=== PATIENT | male | born 1960 | race Caucasian/White ===

== ENCOUNTER → 2020-07-30 14:36 | Outpatient (BNVA) | payer SELFPAY | PROVIDERS: PCP Internal Medicine; Visit Provider Internal Medicine ==

== ENCOUNTER 2022-06-29 07:13 | Day surgery (SDC) | payer BC, SELFPAY ==
--- NOTE | 2022-06-26 11:20 | P.CONAN_ITS ---
Documented by User: Muriel Arreaga NP 06/26/22 11:20 HPI - Anesthesia Eval Consult details Narrative: 61yo M for Colonoscopy [facility] Past Medical History Medical History GERD (gastroesophageal reflux disease) Lyme disease Surgical History Surgical History H/O esophagogastroduodenoscopy H/O shoulder surgery H/O surgical procedure History of liver biopsy History of removal of ureteral stent Social History Social History Patient Tobacco Use Status: Never used Tobacco Second Hand Smoke Exposure: No Use of substances other than those prescribed or required for medical reasons: No Are you DNR?: No Advance Directives: No Advance Directives Information Provided: Yes Advance Directives on File: No Meds Allergies Allergy/AdvReac Type Severity Reaction Status Date / Time ciprofloxacin Allergy Unknown left hand Verified 09/12/13 00:00 numbness meperidine [Demerol] Allergy Unknown nausea Verified 09/12/13 00:00 Home Medications Medication Instructions Recorded Confirmed Last Taken Type alfuzosin 10 mg tablet,extended 1 tab PO DAILY 06/26/22 06/26/22 Unknown History release 24 hr amitriptyline 10 mg tablet 1 tab PO BEDTIME 06/26/22 06/26/22 Unknown History anastrozole 1 mg tablet tab PO 06/26/22 Unknown History cefdinir 300 mg capsule 1 cap PO BID 06/26/22 06/26/22 Unknown History hydroxychloroquine 200 mg tablet 1 tab PO BID 06/26/22 06/26/22 Unknown History meloxicam 15 mg tablet 1 tab PO DAILY 06/26/22 06/26/22 Unknown History nystatin 500,000 unit tablet tab PO 06/26/22 Unknown History omega 2-biu-ixe-fish oil 1,000 mg cap PO 06/26/22 06/26/22 Unknown History (120 mg-180 mg) capsule (Fish Oil) omeprazole 20 mg tablet,delayed mg PO 06/26/22 Unknown History release testosterone cypionate 200 mg/mL mg IM 06/26/22 Unknown History intramuscular oil Exam Exam Date and Time: June 26, 2022 1120 Assessment and Plan Assessment Anesthesia Assessment: Chart Reviewed Documented by User: Josephine Joe MD 06/29/22 07:39 PMF Past Medical History Medical History GERD (gastroesophageal reflux disease) Lyme disease Surgical History Surgical History H/O esophagogastroduodenoscopy H/O shoulder surgery H/O surgical procedure History of liver biopsy History of removal of ureteral stent History of Problems with Anesthesia: No Social History Social History Patient Tobacco Use Status: Never used Tobacco Second Hand Smoke Exposure: No Use of substances other than those prescribed or required for medical reasons: No Are you DNR?: No Advance Directives: No Advance Directives Information Provided: Yes Advance Directives on File: No Meds Allergies Allergy/AdvReac Type Severity Reaction Status Date / Time ciprofloxacin Allergy Unknown left hand Verified 09/12/13 00:00 numbness meperidine [Demerol] Allergy Unknown nausea Verified 09/12/13 00:00 Home Medications Medication Instructions Recorded Confirmed Last Taken Type alfuzosin 10 mg tablet,extended 1 tab PO DAILY 06/26/22 06/26/22 Unknown History release 24 hr amitriptyline 10 mg tablet 1 tab PO BEDTIME 06/26/22 06/26/22 Unknown History anastrozole 1 mg tablet tab PO 06/26/22 Unknown History cefdinir 300 mg capsule 1 cap PO BID 06/26/22 06/26/22 Unknown History hydroxychloroquine 200 mg tablet 1 tab PO BID 06/26/22 06/26/22 Unknown History meloxicam 15 mg tablet 1 tab PO DAILY 06/26/22 06/26/22 Unknown History nystatin 500,000 unit tablet tab PO 06/26/22 Unknown History omega 2-ocy-stz-fish oil 1,000 mg cap PO 06/26/22 06/26/22 Unknown History (120 mg-180 mg) capsule (Fish Oil) omeprazole 20 mg tablet,delayed mg PO 06/26/22 Unknown History release testosterone cypionate 200 mg/mL mg IM 06/26/22 Unknown History intramuscular oil Exam Airway Mallampati Class: III TM Dist: >3cm Neck ROM: Full Loose/Missing/Broken Teeth: No Heart: RRR Lungs: CTA Assessment and Plan Assessment Anesthesia Assessment: Anesthesia Plan Discussed Final Anesthetic Review History of Problems with Anesthesia: No NPO: Yes ASA Class: II Final Preanesthetic Review: Meds/Allgs Chart Reviewed, Consent Obtained/Reviewed and Anes Risks/Benef Reviewed Patient Risk: Low Procedure Risk: Low Anesthetic Plan Anesthetic Plan: MAC: Disposition: Standard PACU
[2022-06-29 07:19] VITALS: BMI 30.4
[2022-06-29 07:32] VITALS: BP 125/87; PULSE 80; RESP 16; TEMP 36.1; O2SAT 97
[2022-06-29] MEDS: Lactated Ringers 1,000 ML 100 ML IVCONT (07:33)
[2022-06-29 08:18] VITALS: BP 114/69; PULSE 75; RESP 16; TEMP 36.1; O2SAT 96
--- NOTE | 2022-06-29 08:20 | P.BOP_ITS ---
Brief Operative Note Date of Service: 06/29/22 Pre-op diagnosis: Screening Post-op diagnosis: other (Rectal polyp) Procedure: Colonoscopy to the cecum and TI with bx/removal of polyp Surgeon: Anant Worthy Anesthesia: MAC Was an Advertising Sales Assistant used for this Procedure?: No Estimated blood loss (mL): 2.0 Pathology: other (A. Rectal polyp) Condition: stable Disposition: PACU
[2022-06-29 08:33] VITALS: BP 109/77; PULSE 76; RESP 16; O2SAT 100
[2022-06-29 08:48] VITALS: BP 126/86; PULSE 70; RESP 16; O2SAT 98
--- NOTE | 2022-06-29 20:24 | OP_ITS ---
SURGEON: Anant Worthy MD INDICATIONS: The patient presents for evaluation of colorectal cancer screening. Full consent has been obtained from him for this, including risks of bleeding and perforation. PREOPERATIVE DIAGNOSIS: Colorectal cancer screening. POSTOPERATIVE DIAGNOSIS: PROCEDURE PERFORMED: Colonoscopy to the cecum and terminal ileum with biopsy and removal of polyp. ESTIMATED BLOOD LOSS: COMPLICATIONS: ANESTHESIA: Monitored anesthesia care. ASSISTANTS: SPECIMENS: POSTOPERATIVE DIAGNOSES: Colorectal cancer screening, small colon polyp, mild diverticulosis, and internal hemorrhoids. DESCRIPTION OF PROCEDURE: The patient was placed in the left lateral decubitus position. The digital rectal exam revealed no abnormalities. The Olympus video pediatric colonoscope was entered into the rectum and advanced easily to the cecum. Once in the cecum, I did identify normal-appearing cecal pouch with appendiceal orifice and a normal-appearing ileocecal valve. The terminal ileum was cannulated and appeared normal. Scope was withdrawn back in the colon. The entire cecum and ileocecal valve appeared normal. The scope was slowly withdrawn assessing all mucosal surfaces carefully. Preparation was excellent. There was a mild amount of sigmoid diverticulosis. I did not visualize any sign of colitis nor angiodysplasia. The only polyp visualized was in the rectum. This was approximately 3 or 4 mm in diameter and was biopsied and completely removed with cold biopsy forceps. The scope was retroflexed visualizing internal hemorrhoids, but no other pathology. The scope was straightened and withdrawn from the patient. He tolerated the procedure well and was returned to the recovery area in stable condition. IMPRESSION: 1. Small rectal polyp. 2. Diverticulosis. 3. Internal hemorrhoids. PLAN: The results of the pathology will be checked. If this is a tubular adenoma, I would recommend a followup in 5 years. If it is only hyperplastic, I would recommend a followup colonoscopy in 10 years. He will otherwise see me on a p.r.n. basis. MD JEREMIAH Lafleur/MARGRET / [id number]
== END 2022-06-29 09:17 | disposition home or self-care (01) ==
PROVIDERS: PCP Pediatrics; Visit Provider Internal Medicine
PROC: 0DJD8ZZ Inspection of Lower Intestinal Tract, Via Natural or Artificial Opening Endoscopic (ICD-10-PCS; CPT 45378; principal; 2022-06-29 08:30)
DX: Z12.11 Encounter for screening for malignant neoplasm of colon (principal); K62.1 Rectal polyp; K57.30 Diverticulosis of large intestine without perforation or abscess without bleeding; K64.8 Other hemorrhoids; K21.9 Gastro-esophageal reflux disease without esophagitis; K76.0 Fatty (change of) liver, not elsewhere classified; Z79.899 Other long term (current) drug therapy
CPT/HCPCS: 45380; 88305

== ENCOUNTER → 2022-07-24 09:48 | Outpatient (BNVA) | payer SELFPAY | PROVIDERS: PCP Pediatrics; Visit Provider Internal Medicine | DX: Z02.79 Encounter for issue of other medical certificate (principal) ==

== ENCOUNTER → 2024-02-18 09:55 | Outpatient (BNVA) | payer SELFPAY | PROVIDERS: PCP Pediatrics; Visit Provider Internal Medicine | DX: Z02.79 Encounter for issue of other medical certificate (principal) ==

== ENCOUNTER 2025-05-14 11:17 | Day surgery (SDC) | payer BC, SELFPAY ==
[2025-05-10 13:59] VITALS: BMI 31.4
--- OUTSIDE RECORDS SUMMARY | 2025-05-10 14:38 | XMS_ITS | Clinical Summary ---
Author Organization [facility] Address [address] [place] [address] Care Team Providers Care Pattern Worker Name Role Phone Kavon Maldonado MD Primary Care Provider + [phone] Allergies Active Allergy Reactions Criticality Noted Date Comments Ciprofloxacin Other (See Comments) 12/12/2013 Meperidine Nausea And Vomiting, Nausea Only,Other (See Comments) Low 12/12/2013 Sulfa Antibiotics Nausea And Vomiting Low 8 Medications Medication Sig Dispensed Refills Start Date End Date Status alfuzosin (UROXATRAL) 10 MG 24 hr tablet alfuzosin ER 10 mg tablet,extended release 24 hr 0 Active amitriptyline (ELAVIL) 10 MG tablet Take 10 mg by mouth. 0 Acti ve anastrozole (ARIMIDEX) 1 MG tablet 0 07/29/2018 Active carisoprodol (SOMA) 350 MG tablet carisoprodol 350 mg tablet 0 Active cefdinir (OMNICEF) 300 MG capsule 0 09/01/2018 Active vitamin B-12 (CYANOCOBALAMIN) 500 MCG tablet Take 500 mcg by mouth. 0 Active hydroxychloroquine (PLAQUENIL) 200 MG tablet Take 200 mg by mouth. 0 Active meloxicam (MOBIC) 15 MG tablet Take 15 mg by mouth. 0 Ac tive omeprazole (PriLOSEC) 40 MG capsule 0 07/30/2018 Active tamsulosin (FLOMAX) 0.4 MG CAPS tamsulosin 0.4 mg capsule 0 Active testosterone cypionate (DEPO-TESTOSTERONE CYPIONATE) injection 200 mg/mL 0 09/27/2018 Active traMADol (ULTRAM) 50 MG tablet tramadol 50 mg tablet 0 Active HYDROcodone-acetam inophen (VICODIN ES) 7.5-300 MG per tablet Vicodin ES 7.5 mg-300 mg tablet 0 Active HYDROcodone-acetam inophen (VICODIN) 5-300 MG per tablet Take 1 to 2 tabs every 4 hours as needed for pain 50 tablet 0 08/22/2019 Active HYDROcodone-acetam inophen (NORCO) 5-325 MG per tablet 0 09/11/2019 Active BD INTEGRA SYRINGE 25G X 1 3 ML MISC 0 10/17/2019 Active fluconazole (DIFLUCAN) 100 MG tablet fluconazole 100 mg tablet 0 Active Active Problems Problem Noted Date Diagnosed Date Coracoid impingement of right shoulder Coracoid impingement of left shoulder 10/02/2020 Shoulder impingement, right 08/22/2019 Arthritis of right shoulder region 03/07/2019 Chronic right shoulder pain 03/07/2019 Social History Tobacco Use Types Packs/Day Years Used Date Smoking Tobacco: Never Assessed Sex and Gender Information Value Date Recorded Sex Assigned at Not on file Gender Identity Not on file Sexual Orientation Not on file Job Start Date Occupation Industry Not on file Not on file Not on file Last Filed Vital Signs Vital Sign Reading Time Taken Comments Blood Pressure - - Pulse - - Temperature - - Respiratory Rate - - Oxygen Saturation - - Inhaled Oxygen Concentration - - Weight 79.4 kg (175 lb) 05/09/2021 8:20 AM EDT Height 170.2 cm (5' 7 ) 05/09/2021 8:20 AM EDT Body Mass Index 27.41 05/09/2021 8:20 AM EDT Plan of Treatment Health Maintenance Due Date Last Done Comments Hepatitis C Screening 1960 COVID-19 Vaccine (#1) 01/14/1963 Depression Screening 1974 BMI Counseling 1980 Preventative Health Evaluation 1980 Colon Cancer Screening (Colonoscopy) 2007 DTap / Tdap / Td (2 - Td or Tdap) 04/18/2025 04/18/2015 Influenza Vaccine (#1) 2025 , 07/01/2018, 08/11/2017, Additional history exists RSV Adult > 60+ Yrs or (1 - 1-dose 75+ series) 2037 Shingrix-Zoster Vaccine Completed 06/23/2019, 03/30 Hepatitis B Vaccines Aged Out No long er eligible based on patient's age to complete this topic Pneumococcal Vaccine Aged Out No long er eligible based on patient's age to complete this topic RSV Ped < 20 months Aged Out No longe r eligible based on patient's age to complete this topic Care Teams Pattern Worker Relationship Specialty Start Date End Date Kavon Maldonado MD [address] [place] [id number] PCP - General Internal Medicine 07/07/18
--- OUTSIDE RECORDS SUMMARY | 2025-05-10 14:39 | XMS_ITS | Patient Health Record ---
Author Organization [facility] Address [address] [place] [address] Care Team Providers Care Flat Bed Operator Name Role Phone Erica MAJANO, Kavon Primary Care Provider Unavail able Anant Worthy Unavailable [phone] Allergies Allergen (clinical drug ingredient) Drug/Non Drug Allergy documented on EMR Reaction Allergy Type Onset Date Status Substance with sulfonamide structure and antibacterial mechanism of action (substance) Sulfa Antibiotics Unknown Drug Allergy Active meperidine Demerol Unknown Drug Allergy Active Reason For Referral Referring Provider First Name Kavon Referring Provider Last Name Erica Referring Provider Speciality Internal M edicine Referred Organization [facility] Referred Provider Anant Worthy Referred Address [address],[place], [place],[address] Referred Provider Specialty Gastroentero logy General Notes Sushma Steven 2024 01:32:45 PM >left message for pt to get an hmo blue referral from his pcp for his apptwith Dr. Worthy on 1960 [phone] [facility] 04/19/2025 09:05:17 AM >Spoke with Marlene at [facility] and requested an hmo blue referral for the patient's appt with Dr. Worthy on 05-14-25 Referral Priority Routine Referring Provider First Name Kavon Referring Provider Last Name Erica Referring Provider Speciality Internal M edicine Referred Organization [facility] Referred Provider Anant Worthy Referred Address [address],[place], [place],[address],[place] Referred Provider Specialty Gastroentero logy General Notes Sushma Steven 2024 09:30:10 AM >DR LEVINE'S OFFICE SENT REFERRA DATED 04-19-25 IT NEEDED TO BE DATED 04-18-25 PLEASE REQUEST ANOTHER REFERRAL FOR DOS 04-18-25 [phone] THE OTHER REFERRAL THEY SENT IS OKAY FOR THE UPCOMING PROCEDURE. Referral Priority Routine Medications Medication SIG (Take, Route, Frequency, Duration) Notes Start Date End Date Status Fish Oil 1000 MG 1 capsule Orally Once a day Active Plaquenil 200 MG 1 tablet with food or milk Orally Once or twice a day Lyme's disease Active Testosterone Cypionate 200 MG/ML 1 ml Intramuscular Ac tive Vitamin B12 1000 MCG 1 tablet Orally Once a day Active Cefdinir 300 MG Oral for 90 Ac tive Anastrozole 1 MG 1/4 tablet Orally twice a week For breast pain from testosterone Active Omeprazole 20 MG 1 capsule Orally Once a day 12/04/2011 Active Amitriptyline HCl 10 MG Oral for 90 Active Meloxicam 15 MG Oral for 90 Ac tive Probiotic Active Naltrexone Not-Takin g Multivitamin 1 1 tablet Orally once a day Active Alfuzosin HCl ER 10 MG Oral for 90 Active Nystatin 448775 UNIT/ML 4 ml Mouth/Throat two-three times a day Active Immunizations Vaccine Route Administration Date Status Comme nts Influenza Unknown 05/07/2021 Administered Social History AUDIT-C (Standard) Question Answer Notes Did you have a drink contain ing alcohol in the past year? Yes How often did you have a dri nk containing alcohol in the past year? 2 to 3 times a week (3 points) How many drinks did you have on a typical day when you were drinking in the past year? 1 or 2 drinks (0 point) How often did you have six o r more drinks on one occasion in the past year? 2 to 3 times per week (3 points) Points 6 Interpretation Positive Section Notes: Nonsmoker, occ. alcohol Nonsmoker, occ. alcohol Nonsmoker, occ. alcohol Nonsmoker, occ. alcohol Nonsmoker, occ. alcohol Nonsmoker, occ. alcohol Nonsmoker, occ. alcohol Problems Problem Type SNOMED Code ICD Code Onset Dates Problem Status W/U Status Risk Notes Problem Colon cancer screening (924753409) Colon cancer screening (Z12.11) Active confirmed Problem Dysphagia (81537560) Dysphagia (R13.10) Active confirmed Problem 868924636 Gastroesophageal reflux disease without esophagitis (K21.9) Active confirmed Problem Preprocedural examination (642712883068455) Preprocedural examination (Z01.818) Active confirmed Problem Barium swallow abnormal (585434140) Abnormal barium swallow (R93.3) Active confirmed Problem 200034831 Abdominal pain, generalized (R10.84) Active confirmed Problem Diverticulosis of colon (372920918) Diverticulosis of colon (K57.30) Active confirmed Vital Signs Heart Rate 88 /min 04/18/2025 Temperature 98.4 degrees Fahrenheit 04/18/2025 Blood pressure diastolic 01 mm Hg 04/18/2025 Height 66 in 04/18/2025 Blood pressure systolic 001 mm Hg 04/18/2025 Weight 194.8 lbs 04/18/2025 BMI 31.44 kg/m2 04/18/2025 Procedures Procedure Date Ordered Date Performed Result Body Sit e UPPER GI ENDOSCOPY BALLOOON DILATION OF ESOPH 04/18/2025 N/A Encounters Encounter Location Date Provider Diagnosis [facility] [address] [place] [phone] 04/18/2025 Anant Worthy Gastroesophageal ref lux disease without esophagitis K21.9 ; Dysphagia R13.10 ; Abnormal barium swallow R93.3 and Colon cancer screening Z12.11 [facility] [address] [place] [phone] 01/10/2025 Anant Worthy [facility] [address] [place] [phone] 04/18/2025 Anant Worthy Assessments Encounter Date Diagnosis (ICD Code) Assessment Notes Treatment Notes Treatment Clinical Notes Section Notes 04/18/2025 Dysphagia (ICD-10 - R13.10) Overall, Aparna appears well. His current upper GI symptoms do not seem overly worrisome for anything such as neoplasm. However, given his intermittent dysphagia and the abnormal barium swallow, I did advise him that he definitely needs an upper endoscopy for full assessment to rule out significant esophagitis, Julian's esophagus, esophageal stricture, and to definitively exclude any type of esophageal neoplasm albeit unlikely. I advised him that I would plan to perform balloon dilation of the distal esophagus and gastroesophageal junction at the time of the endoscopy. In the meantime I did advise him to continue his omeprazole. Full consent has been obtained for the endoscopy and dilation, including risks of bleeding and perforation. The procedure will be done with monitored anesthesia care. He was given the below instructions regarding adjustment of his medication for the procedure. We did review that he would be due for a follow-up colonoscopy for screening in 2031 given his negative exam in 2021 in regard to the finding of any adenomas. He does not show any signs nor describe any symptoms of progressive liver disease on his exam. His limited abdominal ultrasound in January does not describe any worrisome findings such as signs of' cirrhosis, liver mass, portal vein thrombosis, or biliary disease. I will obtain a copy of recent laboratories from your office that he reports that he had to check his LFTs at that time. Aparna was comfortable with this plan. Thank you again for allowing me to participate in Aparna's care. I shall continue to keep you advised of his progress. 04/18/2025 Gastroesophageal reflux disease without esophagitis (ICD-10 - K21.9) Overall, Aparna appears well. His current upper GI symptoms do not seem overly worrisome for anything such as neoplasm. However, given his intermittent dysphagia and the abnormal barium swallow, I did advise him that he definitely needs an upper endoscopy for full assessment to rule out significant esophagitis, Julian's esophagus, esophageal stricture, and to definitively exclude any type of esophageal neoplasm albeit unlikely. I advised him that I would plan to perform balloon dilation of the distal esophagus and gastroesophageal junction at the time of the endoscopy. In the meantime I did advise him to continue his omeprazole. Full consent has been obtained for the endoscopy and dilation, including risks of bleeding and perforation. The procedure will be done with monitored anesthesia care. He was given the below instructions regarding adjustment of his medication for the procedure. We did review that he would be due for a follow-up colonoscopy for screening in 2031 given his negative exam in 2021 in regard to the finding of any adenomas. He does not show any signs nor describe any symptoms of progressive liver disease on his exam. His limited abdominal ultrasound in January does not describe any worrisome findings such as signs of' cirrhosis, liver mass, portal vein thrombosis, or biliary disease. I will obtain a copy of recent laboratories from your office that he reports that he had to check his LFTs at that time. Aparna was comfortable with this plan. Thank you again for allowing me to participate in Aparna's care. I shall continue to keep you advised of his progress. 04/18/2025 Abnormal barium swallow (ICD-10 - R93.3) Overall, Aparna appears well. His current upper GI symptoms do not seem overly worrisome for anything such as neoplasm. However, given his intermittent dysphagia and the abnormal barium swallow, I did advise him that he definitely needs an upper endoscopy for full assessment to rule out significant esophagitis, Julian's esophagus, esophageal stricture, and to definitively exclude any type of esophageal neoplasm albeit unlikely. I advised him that I would plan to perform balloon dilation of the distal esophagus and gastroesophageal junction at the time of the endoscopy. In the meantime I did advise him to continue his omeprazole. Full consent has been obtained for the endoscopy and dilation, including risks of bleeding and perforation. The procedure will be done with monitored anesthesia care. He was given the below instructions regarding adjustment of his medication for the procedure. We did review that he would be due for a follow-up colonoscopy for screening in 2031 given his negative exam in 2021 in regard to the finding of any adenomas. He does not show any signs nor describe any symptoms of progressive liver disease on his exam. His limited abdominal ultrasound in January does not describe any worrisome findings such as signs of' cirrhosis, liver mass, portal vein thrombosis, or biliary disease. I will obtain a copy of recent laboratories from your office that he reports that he had to check his LFTs at that time. Aparna was comfortable with this plan. Thank you again for allowing me to participate in Aparna's care. I shall continue to keep you advised of his progress. 04/18/2025 Colon cancer screening (ICD-10 - Z12.11) Overall, Aparna appears well. His current upper GI symptoms do not seem overly worrisome for anything such as neoplasm. However, given his intermittent dysphagia and the abnormal barium swallow, I did advise him that he definitely needs an upper endoscopy for full assessment to rule out significant esophagitis, Julian's esophagus, esophageal stricture, and to definitively exclude any type of esophageal neoplasm albeit unlikely. I advised him that I would plan to perform balloon dilation of the distal esophagus and gastroesophageal junction at the time of the endoscopy. In the meantime I did advise him to continue his omeprazole. Full consent has been obtained for the endoscopy and dilation, including risks of bleeding and perforation. The procedure will be done with monitored anesthesia care. He was given the below instructions regarding adjustment of his medication for the procedure. We did review that he would be due for a follow-up colonoscopy for screening in 2031 given his negative exam in 2021 in regard to the finding of any adenomas. He does not show any signs nor describe any symptoms of progressive liver disease on his exam. His limited abdominal ultrasound in January does not describe any worrisome findings such as signs of' cirrhosis, liver mass, portal vein thrombosis, or biliary disease. I will obtain a copy of recent laboratories from your office that he reports that he had to check his LFTs at that time. Aparna was comfortable with this plan. Thank you again for allowing me to participate in Aparna's care. I shall continue to keep you advised of his progress. Plan Of Treatment Pending Test Test Name Order Date UPPER GI ENDOSCOPY BALLOOON DILATION OF ESOPH 04/18/2025 LIVER PROFILE 12/04/2011 Future Test Test Name Order Date UPPER GI ENDOSCOPY 01/12/2013 COLONOSCOPY 04/30/2022 Next Appt Details Provider Name:Anant Queen Deacon , 05/14/2025 01:40:00 PM, [address] [place] [address], [phone], Insurance Providers Payer Name Payer Address Payer Phone Subscriber Number Group Number Insured Name Patient Relationship to Insured Coverage Start Date Coverage End Date [facility] [employer] [address] [place] [address] [id number] APARNA ANDRADE Self - patient is the insured Medical (General) History Medical History History ICD Code EGD 12/23/2011-negative for a ny significant esophagitis, Julian's esophagus, nor hiatal hernia; EGD in 2012 was neg. as well- no H.pylori, no celiac disease Fatty liver-liver biopsy in 2003- mild inflammation and fibrosis- -neg. liver w/u otherwise GERD Denies IN,DM,CVA,Lung disease,renal dise ase Negative screening colonosco py in 07/2012 except for a hyperplastic polyp and mild diverticulosis Lyme disease- Stage III - s ees ID physician in [place]- Dr. Aparicio- on antibiotics--Plaquenil and Cefdinir as of the 04/30 OV Negative screening colonoscopy in 2021 e xcept for a hyperplastic polyp Hypertension Surgical History Surgery Date(Month/Year) Complete right shoulder rev erse replacement in September 2024--Dr. Castle at [facility] C-spine disc surgery 2022 Bilateral shoulder surgeries - 4 on the right, 1 on the left- might be having a right shoulder replacement Cystoscopies- ureteral stent s(removed)- negative w/u for bladder cancer Hemorrhoids Sinus Left elbow
--- OUTSIDE RECORDS SUMMARY | 2025-05-10 14:39 | XMS_ITS ---
Author Name [facility] Organization Unknown History of Medication Use Medication Directions Dispensed Refills Start Date End Date Stat triamcinolone acetonide 40 mg/mL suspension for injection Take 80 mg by injection route. 03/02/2024 active lidocaine (PF) 20 mg/mL (2 %) injection solution Take 2 mL by injection route. 08/05/2023 08/05/20 completed Marcaine (PF) 0.5 % (5 mg/mL) injection solution Take 2 mL by injection route. 04/20/2023 08/05/20 completed Kenalog 40 mg/mL suspension for injection Take 1 mL by injection route. 01/25/2023 08/05/20 active lidocaine (PF) 20 mg/mL (2 %) injection solution active lidocaine (PF) 100 mg/5 mL (2 %) injection syringe active alfuzosin ER 10 mg tablet,extended release 24 hr active amitriptyline 10 mg tablet active anastrozole 1 mg tablet active benzonatate 200 mg capsule TAKE 1 CAPSULE BY MOUTH THREE TIMES DAILY FOR 3 DAYS active cefdinir 300 mg capsule active clotrimazole-betamethas one 1 %-0.05 % topical cream APPLY TOPICALLY TO THE AFFECTED AND SURROUNDING AREAS TWICE DAILY IN THE MORNING AND IN THE EVENING FOR 2 WEEKS active hydroxychloroquine 200 mg tablet active meloxicam 15 mg tablet a ctive testosterone cypionate 200 mg/mL intramuscular oil active testosterone enanthate 200 mg/mL intramuscular oil INJECT 0.7 ML IN THE MUSCLE ONCE A WEEK active tizanidine 2 mg tablet TAKE 1 TABLET BY MOUTH DAILY NEEDED FOR SPASM active tizanidine 4 mg tablet TAKE 1 TABLET BY MOUTH THREE TIMES A DAY active Allergies Allergen Reaction Severity Comment Documented Date Source Statu s DEMEROL E[facility] SULFA (SULFONAMIDE ANTIBIOTICS) [facility] Problems Problem Status Onset Date Problem Type Date of Resoluti on Source Osteoarthritis of left glenohumeral joint active 2023-01-25 ProblemAct [facility] T Pain of left shoulder joint active 2023-04-20 ProblemAct [facility] Calcific tendinitis of left shoulder active 2023-01-25 ProblemAct [facility] Osteoarthritis of right glenohumeral joint active 2023-11-18 ProblemAct ENS_[facility] T Encounters Encounter Type Encounter Reason Primary Diagnosis Location Date Ambulatory [facility] 06/16/2024 Ambulatory [facility] 06/15/2024 Ambulatory [facility] 06/15/2024 Ambulatory [facility] 04/13/2024 Ambulatory [facility] 03/03/2024 Ambulatory [facility] 03/02/2024 Ambulatory [facility] 03/02/2024 Ambulatory [facility] [place] 03/02/2024 Ambulatory [facility] 11/18/2023 Ambulatory [facility] 09/03/2023 Ambulatory [facility] 08/05/2023 Ambulatory [facility] [place] 05/11/2023 Ambulatory [facility] [place] 05/08/2023 Ambulatory [facility] 05/05/2023 Ambulatory [facility] [place] 04/20/2023 Ambulatory [facility] [place] 04/20/2023 Ambulatory [facility] [place] 04/19/2023 Ambulatory [facility] [place] 04/19/2023 Ambulatory [facility] [place] 04/19/2023 Ambulatory [facility] [place] 04/07/2023 Ambulatory [facility] [place] 04/07/2023 Ambulatory [facility] [place] 01/25/2023 Ambulatory [facility] [place] 01/25/2023 Ambulatory [facility] [place] 01/25/2023 Ambulatory [facility] [place] 01/22/2023 Ambulatory [facility] [place] 01/22/2023
--- OUTSIDE RECORDS SUMMARY | 2025-05-10 14:39 | XMS_ITS | Clinical Summary ---
Author Organization [facility] Address [address] [place] [address] Care Team Providers Care Health And Safety Inspector Name Role Phone Kavon Maldonado MD Primary Care Provider Allergies Active Allergy Reactions Criticality Noted Date Comments Meperidine GI Intolerance/Nausea/Vomiting Low 03/27 Sulfa Antibiotics GI Intolerance/Nausea/Vomiting Low 03/27/2018 Medications cefdinir (OMNICEF) 300 MG capsule Take 600 mg by mouth 2 (two) times a day. Active hydroxychloroqui ne (PLAQUENIL) 200 MG tablet Take 200 mg by mouth 2 (two) times a day with meals. With food or milk. Active nystatin (MYCOSTATIN) 158923 units tablet Take 1 tablet by mouth every 8 (eight) hours around the clock. Active OMEprazole (PriLOSEC) 40 MG capsule Take 40 mg by mouth daily. Active meloxicam (MOBIC) 15 MG tablet Take 15 mg by mouth daily. Active alfuzosin (UROXATRAL) 10 MG 24 hr tablet Take 10 mg by mouth nightly. Active amitriptyline (ELAVIL) 10 MG tablet Take 10 mg by mouth nightly. Active anastrozole (ARIMIDEX) 1 MG tablet Take 0.25 mg by mouth 2 (two) times a week On Wednesday and Wednesday Active TESTOSTERONE IM Inject 0.7 mL into the shoulder, thigh, or buttocks once a week. Tuesdays Active omega-3 fatty acids (FISH OIL) 1000 MG Cap capsule Take 1,000 mg by mouth daily. Active Vitamin D3 (CHOLECALICEROL) 2000 units tablet Take 2,000 Units by mouth daily. Active cyanocobalamin (VITAMIN B-12) 500 MCG tablet Take 500 mcg by mouth daily. Active multivitamin (multivitamin) Tab tablet Take 1 tablet by mouth daily. Active Turmeric, Curcuma Longa, (CURCUMIN) Powder by Does not apply route daily. Active Bioflavonoid Products (GRAPE SEED PO) Take by mouth. Active Lactobacillus (PROBIOTIC ACIDOPHILUS PO) Take by mouth daily. Active Active Problems Problem Noted Date Diagnosed Date Chest pain 03/27/2018 Social History Tobacco Use Types Packs/Day Years Used Date Smoking Tobacco: Never Smokeless Tobacco: Never Alcohol Use Standard Drinks/Week Comments Yes 4 (1 standard drink = 0.6 oz pur e alcohol) AUDIT-C Answer Date Recorded Frequency of Alcohol Consumption Never 03/27/2018 Average Number of Drinks Not on file 018 Frequency of Binge Drinking Not on file 03/07 Sex and Gender Information Value Date Recorded Sex Assigned at Not on file Legal Sex Male 1:49 PM EDT Gender Identity Not on file Sexual Orientation Not on file Last Filed Vital Signs Vital Sign Reading Time Taken Comments Blood Pressure 117/77 03/28/2018 4:00 PM EDT Pulse 83 03/28/2018 4:00 PM EDT Temperature 36.7 C (98.1 F) 03/28/2018 4:00 PM EDT Respiratory Rate 18 03/28/2018 4:00 PM EDT Oxygen Saturation 99% 03/28/2018 4:00 PM EDT Inhaled Oxygen Concentration - - Weight 78.5 kg (173 lb 1 oz) 03/27/2018 5:00 PM EDT Height 170.2 cm (5' 7 ) 03/27/2018 5:00 PM EDT Body Mass Index 27.11 03/27/2018 5:00 PM EDT Plan of Treatment Health Maintenance Due Date Last Done Comments Hepatitis C Virus Screening 1960 COVID-19 Vaccine (#1) 1967 HIV Screening 1975 DTaP/Tdap/Td Vaccines (1 - Tdap) 1981 Pneumococcal Vaccines 50+ (1 of 2 - PCV) 1981 Zoster (Shingles) Vaccine (1 of 2) 1981 Colonoscopy 2007 RSV Vaccine 60 years and old er and Patients (1 - Risk 60-74 years 1-dose series) 2022 Influenza Vaccine 04/06/2025 Hepatitis B Vaccines Aged Out No long er eligible based on patient's age to complete this topic Insurance [employer] [place] [employer] [place] - PPO Advance Directives * Full Code (Latest Code Status on File) Date Activated Date Inactivated Comments 03/27/2018 3:50 PM Care Teams Health And Safety Inspector Relationship Specialty Start Date End Date Kavon Maldonado MD [address] [address] PCP - General 03/27/18
--- NOTE | 2025-05-11 11:53 | HO.ANESPROP2 ---
Documented by User: Anaya Gutiérrez NP 05/11/25 11:54 HPI - Anesthesia Eval Consult details Narrative: 64 yr old male for upper endoscopy with balloon dilitation PMFSH Past Medical History Medical History HTN (hypertension) Fatty liver Lyme disease GERD (gastroesophageal reflux disease) Surgical History Surgical History H/O colonoscopy Hx of cervical discectomy Hx of cystoscopy History of removal of ureteral stent H/O surgical procedure H/O shoulder surgery History of liver biopsy H/O esophagogastroduodenoscopy History of Problems with Anesthesia: No Social History Social History (Updated 05/10/25 @ 14:03 by Neema Lindsey RN) Patient Tobacco Use Status: Never used Tobacco Second Hand Smoke Exposure: No Use of substances other than those prescribed or required for medical reasons: No Have you been hit, kicked, punched, or otherwise hurt by someone within the past year? If so, by whom?: No Are you DNR?: No Advance Directives: No Advance Directives Information Provided: Yes Poor oral hygiene: No Meds Allergies Allergy/AdvReac Type Severity Reaction Status Date / Time ciprofloxacin Allergy Intermediate left hand Verified 05/14/25 11:48 numbness meperidine (Demerol) Allergy Intermediate nausea Verified 05/14/25 11:48 Sulfa (Sulfonamide Allergy Unknown Unknown Verified 05/14/25 11:48 Antibiotics) Home Medications ?Medication ?Instructions ?Recorded ?Confirmed ?Last Taken ?Type alfuzosin 10 mg tablet,extended 1 tab PO DAILY 06/26/22 05/10/25 Unknown History release 24 hr amitriptyline 10 mg tablet 1 tab PO BEDTIME 06/26/22 05/10/25 Unknown History anastrozole 1 mg tablet 0.25 mg PO 2XW 06/26/22 05/10/25 Unknown History cefdinir 300 mg capsule 1 cap PO BID 06/26/22 05/10/25 Unknown History hydroxychloroquine 200 mg tablet 1 tab PO BID 06/26/22 05/10/25 Unknown History meloxicam 15 mg tablet 1 tab PO DAILY 06/26/22 05/10/25 05/09/25 History nystatin 500,000 unit tablet 1 tab PO BID 06/26/22 05/10/25 Unknown History omega 0-taa-goc-fish oil 1,000 mg 1 cap PO DAILY 06/26/22 05/10/25 Unknown History (120 mg-180 mg) capsule (Fish Oil) omeprazole 20 mg tablet,delayed 20 mg PO DAILY 06/26/22 05/10/25 05/14/25 History release testosterone cypionate 200 mg/mL mg IM 06/26/22 Unknown History intramuscular oil Exam Height,Weight and Vital Signs: Height 5 ft 6 in Weight 88.36 kg Assessment and Plan Final Anesthetic Review History of Problems with Anesthesia: No Documented by User: Oriana Esquivel MD 05/14/25 12:15 [facility] Past Medical History Medical History HTN (hypertension) Fatty liver Lyme disease GERD (gastroesophageal reflux disease) Family History Family history of problems with anesthesia: No Surgical History Surgical History H/O colonoscopy Hx of cervical discectomy Hx of cystoscopy History of removal of ureteral stent H/O surgical procedure H/O shoulder surgery History of liver biopsy H/O esophagogastroduodenoscopy Social History Social History (Updated 05/10/25 @ 14:03 by Neema Lindsey RN) Patient Tobacco Use Status: Never used Tobacco Second Hand Smoke Exposure: No Use of substances other than those prescribed or required for medical reasons: No Have you been hit, kicked, punched, or otherwise hurt by someone within the past year? If so, by whom?: No Are you DNR?: No Advance Directives: No Advance Directives Information Provided: Yes Poor oral hygiene: No Meds Allergies Allergy/AdvReac Type Severity Reaction Status Date / Time ciprofloxacin Allergy Intermediate left hand Verified 05/14/25 11:48 numbness meperidine (Demerol) Allergy Intermediate nausea Verified 05/14/25 11:48 Sulfa (Sulfonamide Allergy Unknown Unknown Verified 05/14/25 11:48 Antibiotics) Home Medications ?Medication ?Instructions ?Recorded ?Confirmed ?Last Taken ?Type alfuzosin 10 mg tablet,extended 1 tab PO DAILY 06/26/22 05/10/25 Unknown History release 24 hr amitriptyline 10 mg tablet 1 tab PO BEDTIME 06/26/22 05/10/25 Unknown History anastrozole 1 mg tablet 0.25 mg PO 2XW 06/26/22 05/10/25 Unknown History cefdinir 300 mg capsule 1 cap PO BID 06/26/22 05/10/25 Unknown History hydroxychloroquine 200 mg tablet 1 tab PO BID 06/26/22 05/10/25 Unknown History meloxicam 15 mg tablet 1 tab PO DAILY 06/26/22 05/10/25 05/09/25 History nystatin 500,000 unit tablet 1 tab PO BID 06/26/22 05/10/25 Unknown History omega 0-qxu-vuu-fish oil 1,000 mg 1 cap PO DAILY 06/26/22 05/10/25 Unknown History (120 mg-180 mg) capsule (Fish Oil) omeprazole 20 mg tablet,delayed 20 mg PO DAILY 06/26/22 05/10/25 05/14/25 History release testosterone cypionate 200 mg/mL mg IM 06/26/22 Unknown History intramuscular oil Exam Airway Mallampati Class: II (top front cap) TM Dist: >3cm Neck ROM: Full Heart: rrr Lungs: cta Assessment and Plan Assessment Anesthesia Assessment: Anesthesia Plan Discussed and Chart Reviewed Final Anesthetic Review Family History of Problems with Anesthesia: No NPO: Yes ASA Class: II Final Preanesthetic Review: No Changes in Pt Med Stat, Meds/Allgs Chart Reviewed and Consent Obtained/Reviewed Patient Risk: Low Procedure Risk: Low Anesthetic Plan Anesthetic Plan: MAC: Disposition: Standard PACU
[2025-05-14 11:55] VITALS: BP 146/102; PULSE 92; RESP 14; TEMP 36.8; O2SAT 97; BMI 31.3
[2025-05-14] MEDS: Lactated Ringers 1,000 ML 100 ML IVCONT (12:00)
[2025-05-14 13:55] VITALS: BP 122/92; PULSE 93; RESP 16; TEMP 37.2; O2SAT 96
--- NOTE | 2025-05-14 14:02 | PM.OP ---
Brief Operative Note Date of Service: 05/14/25 Pre-op diagnosis: Dysphagia Post-op diagnosis: other (Hiatal hernia, GERD) Procedure: EGD with biopsies, and balloon dilation of EG Junction from 18mm to 19mm to 20mm Surgeon: Anant Worthy MD Anesthesia: MAC Was an Coffee Maker used for this Procedure?: No Estimated blood loss (mL): 2.0 Pathology: other (A. EG Junction at 35cm B. Esophagus at 20cm, R/O EoE) Condition: stable Disposition: PACU
[2025-05-14 14:10] VITALS: BP 140/95; PULSE 78; RESP 16; O2SAT 98
--- NOTE | 2025-05-14 23:56 | OP_ITS ---
DATE OF SERVICE: 05/14/2025 SURGEON: Anant Worthy MD INDICATIONS: The patient presents for evaluation of dysphagia and abnormal barium swallow. Full consent has been obtained from him for this, including risks of bleeding and perforation. PREOPERATIVE DIAGNOSIS: POSTOPERATIVE DIAGNOSIS: PROCEDURE PERFORMED: Esophagogastroduodenoscopy with balloon dilation of gastroesophageal junction and biopsies. ESTIMATED BLOOD LOSS: COMPLICATIONS: ANESTHESIA: Medication used, monitored anesthesia care. ASSISTANTS: SPECIMENS: PREOPERATIVE DIAGNOSES: Dysphagia and abnormal barium swallow. POSTOPERATIVE DIAGNOSES: Dysphagia and abnormal barium swallow, gastroesophageal reflux, small hiatal hernia, rule out eosinophilic esophagitis. DESCRIPTION OF PROCEDURE: The patient was placed in the left lateral decubitus position. The Olympus video gastroscope was passed in the posterior oropharynx and upper esophagus under direct vision. The scope was passed slowly into the distal esophagus. The gastroesophageal junction appeared at 35 cm. This area appeared slightly irregular consistent with reflux and possibly small areas of Julian mucosa. There was no esophagitis, mass, ulceration, nor any other lesions. There was some puckering of the gastroesophageal junction, but with insufflation of air and advancement of the scope that did go easily into the stomach. There was no sign of any esophageal stricture nor ring. The scope was advanced to the pylorus, and the duodenum was cannulated to the descending portion. The duodenum including the bulb appeared normal without mass or ulceration. The scope was withdrawn back to the stomach. The gastric antrum and body appeared normal with good peristalsis. The scope was retroflexed visualizing the proximal stomach carefully, which appeared normal, without any sign of mass or ulceration. The scope was straightened and withdrawn back to the esophagus. Given the symptomatology, I did dilate the gastroesophageal junction with a [employer] incremental balloon from 18 mm to 19 mm to 20 mm at the recommended pressure for between 30 and 60 seconds each. Post dilation, the gastroesophageal junction did appear to be more patent, but there was no real appreciable heme noted. I did obtain multiple biopsies from the EG junction at 35 cm. Proximal to 35 cm, the esophageal mucosa appeared normal. I did not visualize any sign of esophageal rings nor any other abnormality. Biopsies were obtained at 20 cm to rule out eosinophilic esophagitis. The scope was withdrawn from the patient. He tolerated the procedure well and was returned to the recovery area in stable condition. IMPRESSION: 1. Small hiatal hernia, gastroesophageal reflux. 2. Rule out eosinophilic esophagitis. 3. Status post balloon dilation of gastroesophageal junction. PLAN: The results of the biopsies will be checked. He has been on omeprazole 20 mg daily but given the finding of some irregularity consistent with reflux and his symptoms, I will put him on a trial of omeprazole 40 mg daily. He was advised to call me if things remain problematic with his swallowing, and we may want to obtain esophageal motility studies. He was advised not to use any aspirin or NSAIDs for 1 week. MD JEREMIAH Lafleur/MARGRET / [id number]
== END 2025-05-14 14:42 | disposition home or self-care (01) ==
PROVIDERS: PCP Pediatrics; Visit Provider Internal Medicine
PROC: (CPT 43249; principal; 2025-05-14 12:40)
DX: K21.9 Gastro-esophageal reflux disease without esophagitis (principal); K44.9 Diaphragmatic hernia without obstruction or gangrene; R93.3 Abnormal findings on diagnostic imaging of other parts of digestive tract; K76.0 Fatty (change of) liver, not elsewhere classified; Z79.899 Other long term (current) drug therapy
CPT/HCPCS: 43249; 43239; 88305; 88313; C1726; J2003; J2371; J2704; J3010

== ENCOUNTER 2025-06-27 16:11 | Outpatient (AMB) | payer BC, SELFPAY ==
--- OUTSIDE RECORDS SUMMARY | 2025-05-14 08:40 | XMS_ITS ---
Author Organization [facility] Address [address] [place] [phone] Care Team Providers Care Tying Machine Operator Lumber Name Role Phone Erica MAJANO, Kavon Primary Care Provider Anant Arnold [phone] REASON FOR VISIT dysphagia,gerd,abn barium swallow Encounters Encounter Location Date Provider Diagnosis [facility] [place] [address] [place] [phone] 05/14/2025 Anant Worthy Plan Of Treatment No Information Progress Notes * APARNA ANDRADEDOB:1960 (64 yo M)Acc No.[id number]:05/14/2025 EGD/MAC Patient: APARNA BONILLA Provider: Cynthia Worthy MD :1960 A ge:64 Y S ex:Male Date:05/14/2025 Address:[address] [place], [place] [phone] Pcp:Kavon Maldonado MD Subjective: * Chief Complaints: * 1 . Dysphagia,gerd,abn barium swallow. * Medical History: Objective: * Vitals: Assessment: Plan: * Treatment: * * The named appointment provid er may or may not be the originator of this progress note, and it is not deemed complete until electronically signed by the appointment provider. Sign off status: Pending * Provider: Cynthia Worthy MD Date: 0 05/14/2025 Generated for Mannyi ng/Faxing/eTransmitting on: 1 10:01 PM EDT
--- OUTSIDE RECORDS SUMMARY | 2025-06-27 22:00 | XMS_ITS | Data Portability ---
Author Organization [place] [facility] Mehdi Umana [facility] [place] Address [address] [place] [address] Care Team Providers Care Teaching Pastor Name Role Phone CASTROKINGNEFTALICLIFFORD Primary Care Provider CHANEL RENTERIA Referring Provider Assessment Encounter Date Assessment Date Assessment LastModified by Organization Details LastModified Time 05/05/2023 05/05/2023 Pleasant 62-year-old male with ongoing right shoulder pain due to severe glenohumeral arthritis. He has already been evaluated for total shoulder replacement for which she is attempting to stave off at this time. He opted for a cortisone injection. After verbal consent was granted by the patient. Procedure was carried out in the right shoulder. He tolerated the procedure well. Aftercare instructions were discussed in detail. Follow-up visit 3 months time for repeat clinical exam. Should his symptoms not improve or worsen he should contact my office. The patient agrees with the above-noted plan Indirect care and treatment in conjunction with Dr. Moya Additional treatment plan discussed with the patient in detail included the following; - Provider focused nonsteroidal anti-inflammator y regimen (discussed were the pros, cons, benefits and risks as well as any black box warnings) in patients over 60 years old they should be very cautious in taking these medications due to potential decreased kidney function and or elevated blood pressure. - Analgesic pain medication for pain suppression (discussed were the pros, cons, benefits and risks as well as any black box warnings) - The use of topical pain relieving medication were discussed - The use of ice to decrease inflammation and pain - The use of assistive ambulatory devices for ambulation and fall prevention - Formal specific guided physical therapy program I reviewed my findings at length with the patient today. We discussed the nature and etiology of this problem along with current treatment options. We discussed the expected course and outcomes and what to expect. We also discussed risks and benefits. All of their questions were answered today, and there was exhibited understanding and comprehension of all that was discussed. Time Spent: 10 minutes were spent reviewing previous imaging and charting. 10 minutes were spent obtaining patient history. 5 minutes were spent on physical exam. 5minutes were spent explaining diagnosis and assessment. Today's documentation was made using voice recognition software. This note may contain grammatical errors secondary to the software. 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 He opted for bilateral cortisone injections at today's visit. After verbal consent was granted. The procedures were then carried out. He tolerated these well aftercare instructions were discussed in detail. Follow-up visit 3 months time for repeat clinical exam. Should his symptoms not improve or worsen he should contact my office immediately. He agrees to this plan. Patient was seen and evaluated by Zachariah Yi PA-C in indirect conjuction with Documenting Provider: Michael Amato MD . He/She agrees with history, physical examination, tests/diagnostic imaging, and treatment plan. Additional treatment plan discussed with the patient (only initiated if in boldface font) otherwise not applicable. Treatment may include the following; - Provider focused nonsteroidal anti-inflammator y regimen (discussed were the pros, cons, benefits and risks as well as any black box warnings) in patients over 60 years old they should be very cautious in taking these medications due to potential decreased kidney function and or elevated blood pressure. - Analgesic pain medication for pain suppression (discussed were the pros, cons, benefits and risks as well as any black box warnings) - The use of topical pain relieving medication were discussed - The use of ice to decrease inflammation and pain - The use of assistive ambulatory devices for ambulation and fall prevention - Formal specific guided physical therapy program I reviewed my findings at length with the patient today. We discussed the nature and etiology of this problem along with current treatment options. We discussed the expected course and outcomes and what to expect. We also discussed risks and benefits. All of their questions were answered today, and there was exhibited understanding and comprehension of all that was discussed. Time Spent: 10 minutes were spent reviewing previous imaging and charting. 10 minutes were spent obtaining patient history. 5 minutes were spent on physical exam. 5minutes were spent explaining diagnosis and assessment. Today's documentation was made using voice recognition software. This note may contain grammatical errors secondary to the software. 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 He opted for bilateral cortisone injections at today's visit. After verbal consent was granted. The procedures were then carried out. He tolerated these well aftercare instructions were discussed in detail. Follow-up visit 3 months time for repeat clinical exam. Should his symptoms not improve or worsen he should contact my office immediately. He agrees to this plan. Patient was seen and evaluated by Zachariah Yi PA-C in indirect conjuction with Documenting Provider: Michael Amato MD . He/She agrees with history, physical examination, tests/diagnostic imaging, and treatment plan. Additional treatment plan discussed with the patient (only initiated if in boldface font) otherwise not applicable. Treatment may include the following; - Provider focused nonsteroidal anti-inflammator y regimen (discussed were the pros, cons, benefits and risks as well as any black box warnings) in patients over 60 years old they should be very cautious in taking these medications due to potential decreased kidney function and or elevated blood pressure. - Analgesic pain medication for pain suppression (discussed were the pros, cons, benefits and risks as well as any black box warnings) - The use of topical pain relieving medication were discussed - The use of ice to decrease inflammation and pain - The use of assistive ambulatory devices for ambulation and fall prevention - Formal specific guided physical therapy program I reviewed my findings at length with the patient today. We discussed the nature and etiology of this problem along with current treatment options. We discussed the expected course and outcomes and what to expect. We also discussed risks and benefits. All of their questions were answered today, and there was exhibited understanding and comprehension of all that was discussed. Time Spent: 10 minutes were spent reviewing previous imaging and charting. 10 minutes were spent obtaining patient history. 5 minutes were spent on physical exam. 5minutes were spent explaining diagnosis and assessment. Today's documentation was made using voice recognition software. This note may contain grammatical errors secondary to the software. Not available 11/18/2023 09:46:35 03/02/2024 03/02/2024 The above findings were discussed in detail today with the patient. They have evidence of right shoulder glenohumeral joint arthritis and left shoulder calcific tendinitis with impingement. Pathology and expected prognosis were discussed with the patient today. Treatment options include conservative treatment, anti-inflammator ies, activity modification, a cortisone injection, or consideration for shoulder surgery. He is considering right total shoulder replacement however they would not like surgery at this point would like a steroid injection into bilateral shoulders. Risk and benefits of steroid injection were discussed with the patient today, they understand these risks and would like to proceed. They tolerated the procedure well. I let them know it can take 2 days to 2 weeks start working after 6 weeks to take its full effect. They can take anti-inflammator ies, ice, and rest or do activity medication in the meantime to help with the pain. I will see them back for follow-up in 3 months for repeat evaluation. All of their questions were answered, they are in agreement with the plan. Not available 03/02/2024 11:52:48 06/15/2024 06/15/2024 The above findings were discussed in detail today with the patient. He has evidence of right shoulder glenohumeral joint arthritis and left shoulder calcific tendinitis with impingement, he did get good relief from both shoulders from a steroid injection about 3 months ago, however he has recurrence of symptoms. We discussed treatment options which include activity modification, anti-inflammator ies, repeat steroid injection, or consideration for surgical intervention. He is interested in pursuing surgery however would like a steroid injection today. I did let him know that likely surgery would be in the form of right shoulder replacement however on the left side I would not continue to do injections after this 1 as he may need surgery to remove the calcium deposit or repair his rotator cuff. Details of injection and as well as risks were discussed, including but not limited to infection, bleeding, nerve injury, no improvement, worsening of symptoms, flare reaction, skin depigmentation, and lipodystrophy. I let them know it can take 2 days to 2 weeks to start working and up to 6 weeks to take its full effect. They understand this and gave verbal consent. They tolerated the procedure well. He will limit his activities for the next couple days, take anti-inflammator ies and ice as needed and increase activities as tolerated. I will have him follow-up with Dr. Cannon in 3 months for reevaluation, at that point he can discuss surgical intervention if patient is interested. All of his questions were answered, he is in agreement plan. [email or web address] Not available 06/15/2024 12:28:18 Plan of Treatment Reminders Order Date Submit Date Provider Last Modified By Organization Details Last Modified Time Details Appointments None recorded. Lab None recorded. Referral None recorded. Procedures None recorded. Surgeries None recorded. Imaging XR, shoulder, 2 or more view 2023 024 [email or web address] [facility], [address], [place], [address], 4 11:04:55 XR, shoulder, 2 or more view 2022 023 [facility], [address], [place], [address], 3 11:29:20 Medication Orders lidocaine (PF) 10 mg/mL (1 %) injection solution 2023 024 [email or web address] Not available 4 12:28:58 triamcinolo ne acetonide 40 mg/mL suspension for injection 2023 024 [email or web address] Not available 4 12:28:58 lidocaine (PF) 10 mg/mL (1 %) injection solution 2023 024 [email or web address] [facility] #11174, [address] [place] [address], [id number], 4 11:04:55 triamcinolo ne acetonide 40 mg/mL suspension for injection 2023 024 [email or web address] [facility] #79338, [address], [place], [id number], 4 11:04:55 Kenalog 40 mg/mL suspension for injection [address] [facility]85688, [address] [place] [address], [id number], 4 09:51:42 lidocaine (PF) 10 mg/mL (1 %) injection solution [address] [facility] #07630, [address] [place] [address], [id number], 4 09:51:42 Kenalog 40 mg/mL suspension for injection [address] [facility] #23604, [address] [place] [address], [id number], 4 09:51:42 lidocaine (PF) 10 mg/mL (1 %) injection solution [address] [facility] #58299, [address] [place] [address], [id number], 4 09:51:42 Kenalog 40 mg/mL suspension for injection 2022 023 [facility]33593, [address] [place] [address], [id number], 3 09:43:56 Marcaine (PF) 0.5 % (5 mg/mL) injection solution [address] [facility] #25756, [address] [place] [address], [id number], 3 09:43:56 lidocaine (PF) 20 mg/mL (2 %) injection solution [address] [facility] #23640, [address] [place] [address], [id number], 3 09:43:56 Kenalog 40 mg/mL suspension for injection [address] [facility] #48575, [address] [place] [address], [id number], 3 09:43:56 Marcaine (PF) 0.5 % (5 mg/mL) injection solution [address] [facility] #27878, [address] [place] [address], [id number], 3 09:43:56 lidocaine (PF) 100 mg/5 mL (2 %) injection syringe [address] [facility] #10284, [address] [place] [address], [id number], 3 09:43:56 Kenalog 40 mg/mL suspension for injection [address] [facility] #70304, [address] [place] [address], [id number], 3 09:18:07 lidocaine (PF) 10 mg/mL (1 %) injection solution [address] [facility] #38844, [address] [place] [address], [id number], 3 09:18:11 bupivacaine (PF) 0.5 % (5 mg/mL) injection solution [address] [facility] #32746, [address], [place], [id number], 09:18:19 Patient TargetsNo targets recorded. Patient Instructions Encounter Date Encounter Id Patient Instructions Last Modified By Organization Details Last Modified Time 05/05/2023 [id number] You have been provided with a cortisone injection in order to reduce the pain and inflammation that you are experiencing. The injection consists of two medications. Cortisone (an anti-inflammatory that will take 48-72 hours to take effect) and Lidocaine (a numbing agent that will last 2-3 hours). Please note that not everyone will have a lasting response following the injection. PATIENT INSTRUCTIONS Once the Lidocaine wears off, you may have an increase in your pain. I recommend icing the affected area for 20 minutes 3-4 times per day. It is recommended that you refrain from any high level activities using the joint or limb that was injected for approximately 24-48 hours. Normal day-to-day activities are generally not a problem. POSSIBLE SIDE EFFECTS Individuals with dark complexions may experience some skin discoloration locally at the site of the injection. There is the possibility of an increase in discomfort within 48 hours following the injection. This is called aline hernández . To help minimize the chances of this, please see the post-injection instructions above. There is a less than 1% chance of an infection. If you notice any signs of infection (redness, warmth, drainage, fever greater than 100 degrees) please call our office or contact us through the portal EVIE. Not available 05/06/2023 07:14:39 Right shoulder x-rays performed at today's visit reveal grade 4 glenohumeral joint space narrowing with large osteophyte formation, subchondral sclerosis, type II acromion and AC joint space narrowing without acute bony abnormality. Not available 05/06/2023 07:10:06 08/05/2023 [id number] You have been provided with a cortisone injection in order to reduce the pain and inflammation that you are experiencing. The injection consists of two medications. Cortisone (an anti-inflammatory that will take 48-72 hours to take effect) and Lidocaine (a numbing agent that will last 2-3 hours). Please note that not everyone will have a lasting response following the injection. PATIENT INSTRUCTIONS Once the Lidocaine wears off, you may have an increase in your pain. I recommend icing the affected area for 20 minutes 3-4 times per day. It is recommended that you refrain from any high level activities using the joint or limb that was injected for approximately 24-48 hours. Normal day-to-day activities are generally not a problem. POSSIBLE SIDE EFFECTS Individuals with dark complexions may experience some skin discoloration locally at the site of the injection. There is the possibility of an increase in discomfort within 48 hours following the injection. This is called a f lare . To help minimize the chances of this, please see the post-injection instructions above. There is a less than 1% chance of an infection. If you notice any signs of infection (redness, warmth, drainage, fever greater than 100 degrees) please call our office or contact us through the portal EVIE. Not available 08/05/2023 12:46:18 11/18/2023 [id number] You have been provided with a cortisone injection in order to reduce the pain and inflammation that you are experiencing. The injection consists of two medications. Cortisone (an anti-inflammatory that will take 48-72 hours to take effect) and Lidocaine (a numbing agent that will last 2-3 hours). Please note that not everyone will have a lasting response following the injection. PATIENT INSTRUCTIONS Once the Lidocaine wears off, you may have an increase in your pain. I recommend icing the affected area for 20 minutes 3-4 times per day. It is recommended that you refrain from any high level activities using the joint or limb that was injected for approximately 24-48 hours. Normal day-to-day activities are generally not a problem. POSSIBLE SIDE EFFECTS Individuals with dark complexions may experience some skin discoloration locally at the site of the injection. There is the possibility of an increase in discomfort within 48 hours following the injection. This is called a f lare . To help minimize the chances of this, please see the post-injection instructions above. There is a less than 1% chance of an infection. If you notice any signs of infection (redness, warmth, drainage, fever greater than 100 degrees) please call our office or contact us through the portal EVIE. Not available 11/18/2023 09:46:35 03/02/2024 [id number] You have been provided with a cortisone injection in order to reduce the pain and inflammation that you are experiencing. The injection consists of two medications. Cortisone (an anti-inflammatory that will take 48-72 hours to take effect) and Lidocaine (a numbing agent that will last 2-3 hours). Please note that not everyone will have a lasting response following the injection. PATIENT INSTRUCTIONS Once the Lidocaine wears off, you may have an increase in your pain. I recommend icing the affected area for 20 minutes 3-4 times per day. It is recommended that you refrain from any high level activities using the joint or limb that was injected for approximately 24-48 hours. Normal day-to-day activities are generally not a problem. POSSIBLE SIDE EFFECTS Individuals with dark complexions may experience some skin discoloration locally at the site of the injection. There is the possibility of an increase in discomfort within 48 hours following the injection. This is called aline hernández . To help minimize the chances of this, please see the post-injection instructions above. There is a less than 1% chance of an infection. If you notice any signs of infection (redness, warmth, drainage, fever greater than 100 degrees) please call our office or contact us through the portal EVIE. Not available 03/02/2024 11:53:00 4 views of the left shoulder ordered and reviewed today, this demonstrates calcific tendinitis at the rotator cuff insertion, bridging from the greater tuberosity to the acromion. Evidence of subacromial debridement. Mild degenerative changes at the glenohumeral joint. 3 views of the right shoulder from 05/05/2023 were available for review today in our system, this demonstrates severe glenohumeral joint arthritis with osteophyte formation, humeral head flattening, and degenerative changes at the greater tuberosity. There is superior migration of the humeral head. Not available 03/02/2024 11:52:02 06/15/2024 [id number] You have been provided with a cortisone injection in order to reduce the pain and inflammation that you are experiencing. The injection consists of two medications. Cortisone (an anti-inflammatory that will take 48-72 hours to take effect) and Lidocaine (a numbing agent that will last 2-3 hours). Please note that not everyone will have a lasting response following the injection. PATIENT INSTRUCTIONS Once the Lidocaine wears off, you may have an increase in your pain. I recommend icing the affected area for 20 minutes 3-4 times per day. It is recommended that you refrain from any high level activities using the joint or limb that was injected for approximately 24-48 hours. Normal day-to-day activities are generally not a problem. POSSIBLE SIDE EFFECTS Individuals with dark complexions may experience some skin discoloration locally at the site of the injection. There is the possibility of an increase in discomfort within 48 hours following the injection. This is called aline hernández . To help minimize the chances of this, please see the post-injection instructions above. There is a less than 1% chance of an infection. If you notice any signs of infection (redness, warmth, drainage, fever greater than 100 degrees) please call our office or contact us through the portal EVIE. Not available 06/15/2024 12:25:15 Reason for Referral None Reported. Problems Name Problem SNOMED Code Status Onset Date Resolution Date Notes Provider Name and Address Organization Details Recorded Time Chronic pain of right upper limb 19175103278 677242 Active 2018 Chronic right shoulder pain Not Available [facility] 5 00:14:22 Inflammat ion of joint of right shoulder region Active 2018 Arthritis of right shoulder region Not Available [facility] 5 00:14:23 Disorder of shoulder 381344002 Active 2018 Shoulder impingeme nt, right Not Available [facility] 5 00:14:23 Coracoid impingeme nt 268312079 Active 2020 Coracoid impingeme nt of right shoulder Coracoid impingeme nt of left shoulder Not Available [facility] 5 00:14:23 Calcific tendiniti s of left shoulder 26512433507 9108 Active 2022 ZACHARIAH YI PA-C [address] [facility] [address], [facility] [place], [address] , [place] [facility], P 3 13:37:05 Osteoarth ritis of left glenohume ral joint 70771926424 30732 Active 2022 ZACHARIAH YI PA-C [address], [place], [address] , [place] - [facility], P 3 13:37:11 Pain of left shoulder joint 27848441037 112974 Active 2022 ZACHARIAH YI PA-C [address], [place], [place], [address] , [place] [facility], P 3 09:04:04 Osteoarth ritis of right glenohume ral joint 91095257951 37436 Active 2023 ZACHARIAH YI PA-C [address], [place], [address] , [place] [facility], P 4 09:46:37 Problem Notes None recorded. Procedures Surgical History Date Name Laterality Status Provider Name and Address Organization Details Recorded Time 06/15/20 24 LES Subacromial Shoulder Inj completed Morelia Hernandez MD [address] [facility], [place], [address], [place] - [facility], P 06/15/2024 12:24:54 06/15/20 24 LES Shoulder Interarticular Inj completed Morelia Hernandez MD [address] [place] [address], [phone], [place] [facility], P 06/15/2024 12:24:34 03/02/20 24 LES Shoulder Interarticular Inj completed Morelia Hernandez MD [address] [facility], [place], [address], [place] [facility], P 03/02/2024 11:49:55 11/18/19 24 Shoulder Joint/Bursa Asp & Inj completed ZACHARIAH YI PA-C [address] [place] [address], [address], [place] [facility], P 11/18/2023 09:46:34 08/05/20 23 Shoulder Joint/Bursa Asp & Inj completed ZACHARIAH IY PA-C [address], [place], [address], [place] [facility], P 08/05/2023 12:45:28 05/05/20 23 Shoulder Joint/Bursa Asp & Inj completed ZACHARIAH YI PA-C [address] [facility],[address], [place], [address], [place] - [facility] 05/06/2023 07:12:30 04/20/20 23 Shoulder Joint/Bursa Asp & Inj completed ZACHARIAH YI PA-C [address] [facility],[address], [place], [address], [place] - [facility] 04/20/2023 09:04:07 01/26/20 23 Shoulder Joint/Bursa Asp & Inj completed ZACHARIAH YI PA-C [address] [facility],[address], [place], [address], [place] - [facility] 01/25/2023 08:08:04 procedure on shoulder completed [facility] 04/20/2023 08:44:03 Imaging Results None recorded. Procedure Notes None recorded. Medical Equipment None Reported. Allergies Allergen ID Allergen Name Allergen Category Reaction Reaction Severity Criticality Documentation Date Start Date Code Code System Note Provider Name and Address Organization Details Recorded Time 14984 Demerol medicatio n Not available Not available Not available 08/05/2023 27095 1 [facility] 09:17:25 65507 Substance with sulfonami de structure and antibacte rial mechanism of action (substanc e) medicatio n Not available Not available Not available 08/05/2023 50934 8003 SNOMED Sade saleh, [facility] 3 09:17:42 799852 ciproflox acin medicatio n Not available Not available Not available 05/29/20252013 2551 RxNorm React ion: Other (See Comme nts), sever ity: Unkno wn Not Available [facility] 01:32:09 [id number] meperidin e medicatio n Not available Not available Not available 05/29/20252013 6754 RxNorm React ion: Nause a And Vomit ing, sever ity: Unkno wn;Re actio n: Nause a Only, sever ity: Unkno wn;Re actio n: Other (See Comme nts), sever ity: Unkno wn Not Available [facility] 5 01:32:09 Medications Name Sig Start Date Stop Date Status Note LastModified by Organization Details LastModified Time carisoprodo l 350 mg tablet carisopro dol 350 mg tablet active Not Available Not Available No t Available fluconazole 100 mg tablet fluconazo le 100 mg tablet active Not Available Not Available No t Available anastrozole 1 mg tablet active Not Available Not Available Not Available tizanidine 2 mg tablet TAKE 1 TABLET BY MOUTH DAILY NEEDED FOR SPASM active Not Available Not Available No t Available tizanidine 4 mg tablet TAKE 1 TABLET BY MOUTH TWICE DAILY NEEDED active Not Available Not Available No t Available benzonatate 200 mg capsule TAKE 1 CAPSULE BY MOUTH THREE TIMES DAILY FOR 3 DAYS active Not Available Not Available No t Available hydrocodone 5 mg-acetamin ophen 325 mg tablet 2019 active Not Available Not Available Not Avai lable fluconazole 200 mg tablet TAKE 1 TABLET BY MOUTH EVERY DAY FOR 14 DAYS 11/17 completed Not Available Not Available Not Available meloxicam 15 mg tablet Take 15 mg by mouth. active Not Available Not Available No t Available pimecrolimu s 1 % topical cream active Not Available Not Available Not Available nystatin 500,000 unit tablet active Not Available Not Available Not Available omeprazole 40 mg capsule,del ayed release 2017 active Not Available Not Available Not Avai lable tramadol 50 mg tablet tramadol 50 mg tablet active Not Available Not Available No t Available cyanocobala min (vit B-12) 500 mcg tablet Take 500 mcg by mouth. active Not Available Not Available No t Available tamsulosin 0.4 mg capsule tamsulosi n 0.4 mg capsule active Not Available Not Available No t Available amitriptyli ne 10 mg tablet Take 10 mg by mouth. active Not Available Not Available No t Available triamcinolo ne acetonide 40 mg/mL suspension for injection Take 80 mg by injection route. 2023 active Not Available Not Available Not Avai lable methylpredn isolone acetate 40 mg/mL suspension for injection 02/13 completed Not Available Not Available Not Available clotrimazol e-betametha sone 1 %-0.05 % topical cream APPLY TOPICALLY TO THE AFFECTED AND SURROUNDI NG AREAS TWICE DAILY IN THE MORNING AND IN THE EVENING FOR 2 WEEKS active Not Available Not Available No t Available lisinopril 10 mg tablet TAKE 1 TABLET BY MOUTH EVERY DAY active Not Available Not Available No t Available testosteron e enanthate 200 mg/mL intramuscul ar oil INJECT 0.7 ML IN THE MUSCLE ONCE A WEEK active Not Available Not Available No t Available hydroxychlo roquine 200 mg tablet Take 200 mg by mouth. active Not Available Not Available No t Available testosteron e cypionate 200 mg/mL intramuscul ar oil active Not Available Not Available Not Available cefdinir 300 mg capsule active Not Available Not Available Not Available oxycodone 5 mg tablet TAKE 1 TABLET BY MOUTH EVERY 4 HOURS NEEDED FOR PAIN 06/15 completed Not Available Not Available Not Available Marcaine (PF) 0.5 % (5 mg/mL) injection solution Take 2 mL by injection route. 08/05 completed Not Available Not Available Not Available alfuzosin ER 10 mg tablet,exte nded release 24 hr alfuzosin ER 10 mg tablet,ex tended release 24 hr active Not Available Not Available No t Available hydrocodone 5 mg-acetamin ophen 300 mg tablet Take 1 to 2 tabs every 4 hours as needed for pain 2018 active Not Available Not Available Not Avai lable hydrocodone 7.5 mg-acetamin ophen 300 mg tablet Vicodin ES 7.5 mg-300 mg tablet active Not Available Not Available No t Available lidocaine (PF) 10 mg/mL (1 %) injection solution Take 4 mL by injection route. 2023 active Not Available Not Available Not Avai lable lidocaine (PF) 20 mg/mL (2 %) injection solution Take 2 mL by injection route. 08/05 completed Not Available Not Available Not Available BD Integra Syringe 3 mL 25 gauge x 1 active Not Available Not Available Not Available lidocaine (PF) 100 mg/5 mL (2 %) injection syringe Take 2 mL by injection route. 08/05 completed Not Available Not Available Not Available Flowflex COVID-19 Antigen Home Test kit 08/05 completed Not Available Not Available Not Available Paxlovid 300 mg (150 mg x 2)-100 mg tablets in a dose pack TK 2 NIRMATREL VIR TS AND 1 RITONAVIR T TOGETHER PO TWICE DAILY FOR 5 DAYS 06/15 completed Not Available Not Available Not Available Vitals Date Recorded Body height Provider Name an d Address Organization Details Last Updated DateTime 11/18/[address]23 [address] - [facility] 11/18/2023 09:10:45 Date Recorded Body height Provider Name an d Address Organization Details Last Updated DateTime 03/02/2024 167[address] [place] - [facility] 03/02/2024 09:41:54 Date Recorded Body height Provider Name an d Address Organization Details Last Updated DateTime 05/05/2023 167.64 cm Sade [place] [facility] 05/05/2023 09:14:15 Date Recorded Body height Body mass index (BMI) Body weight Provider Name and Address Organization Details Last Updated DateTime 06/15/2024 167.64 cm 29.9 kg/m2 89598.59 g Nuria Raulito [place] - [facility] 06/15/2024 09:34:33 Date Recorded Body height Provider Name an d Address Organization Details Last Updated DateTime 08/05/2023 167.64 cm Sade [facility], [facility] 08/05/2023 09:16:10 Social History None recorded. Functional Status Question Answer Note LastModified by Organizat ion Details LastModified Time How many times per week do you consume alcohol? 3-4 times per week Information not available 04/20/2023 Do you use any illicit or recreational drugs? No Information not available 04/20/2023 Do you or have you ever used any other forms of tobacco or nicotine? No Information not available 04/20/2023 What is your level of alcohol consumption? Occasional Information not available 04/20/2023 Mental Status None recorded. Family History Relationship Description Onset Age of this Age Resolved Age Notes LastModified by Organization Details LastModified Time Father Family history of malignant neoplasm Not available 2022 08:43:41 Father Diabetes mellitus ries5 Not available 2022 08:43:45 Medical History No medical history recorded. Past Encounters Encounter ID Performer Location Encounter Start Date Encounter Closed Date Diagnosis/Indication Diagnosis SNOMED-CT Code Diagnosis ICD10 Code Diagnosis IMO Codes [id number] [address] [address] 01/25/2023 13:07:27 01/25/2023 13:37:15 Pain of left shoulder joint [id number] 0473702 M25.512 Calcific t endinitis of left shoulder 6797532438 09386 M75.32 Osteoarthr itis of left glenohumeral joint 3662933478 303482 M19.012 [id number] VEENA VALDEZ [facility] [address] [address] 04/20/2023 08:32:00 04/20/2023 09:01:15 Osteoarthritis of left glenohumeral joint 3266671529 809935 M19.012 Pain of le ft shoulder joint 2707301955 3352007 M25.512 Calcific t endinitis of left shoulder 6386261240 84645 M75.32 [id number] VEENA VALDEZ [facility] [address] [address] 05/05/2023 08:58:23 05/05/2023 09:35:40 Pain of right shoulder joint 0124054325 2257690 M25.511 Osteoarthr itis of left glenohumeral joint 2062745444 482048 M19.012 [id number] VEENA VALDEZ [facility] [address] [address] 08/05/2023 08:52:32 08/05/2023 10:22:54 Calcific tendinitis of left shoulder 6388528386 98022 M75.32 Osteoarthr itis of left glenohumeral joint 2076901586 841732 M19.012 Osteoarthr itis of right glenohumeral joint 2259441310 177057 M19.011 [id number] ZACHARIAH YI PA-C [facility] [address] [facility] [address] [place] [address] 11/18/2023 09:07:38 11/18/2023 09:23:55 Osteoarthritis of left glenohumeral joint 8579544490 007450 M19.012 Pain of ri ght shoulder joint 6090545401 8589552 M25.511 Additional diagnosis detail: Pain, joint, shoulder, right Calcific t endinitis of left shoulder 1269933519 95084 M75.32 Osteoarthr itis of right glenohumeral joint 3667395096 836529 M19.011 [id number] Morelia Hernandez MD [facility] [address] [address] 03/02/2024 09:35:33 03/02/2024 10:19:53 Pain of left shoulder joint 0843418441 4120938 M25.512 Additional diagnosis detail: Pain, joint, shoulder, left Osteoarthr itis of right glenohumeral joint 2389353418 891345 M19.011 M19.012 Additional diagnosis detail: Osteoarthr itis of left glenohumer al joint Calcific t endinitis of left shoulder 0724249215 44081 M75.32 [id number] Morelia Hernandez MD [facility] [address] [address] 06/15/2024 09:31:00 06/15/2024 10:04:56 Osteoarthritis of right glenohumeral joint 2342447813 690586 M19.011 M19.012 Additional diagnosis detail: Osteoarthr itis of left glenohumer al joint Calcific t endinitis of left shoulder 2290517876 96273 M75.32 Health Concerns Section Related Observation LastModified by Organization Detai ls LastModified Time None Recorded Concern Status LastModified by Organization Details LastModified Time None Recorded Advance Directives Directive None Recorded Payers Insurance Date Sequence Insurance Name Policy Number Policy Vargas Covered Member ID Vargas Member ID Guarantor Name 06/15/2024 1 [facility] [place] [id number] Fermin Wilhelm [id number] Fermin Wilhelm Notes Date Note Type Note Provider Name and Address Organization Details Recorded Time 05/05/2023 text/html Larry 62-year-old male longstanding patient with ongoing right shoulder pain with severe glenohumeral arthritis. He has been formally referred to Dr. Elizabeth for who he had consultation with he is attempting to stave off total shoulder replacement as long as feasibly possible which is until he retires. He has not had any cortisone injections within that shoulder since 05/14/2022. He describes the pain is gnawing in nature with decreased range of motion over a number of years with a grating sensation. He gets good relief with cortisone injection for which she is here today. Right shoulder x-rays performed at today's visit reveal grade 4 glenohumeral joint space narrowing with large osteophyte formation, subchondral sclerosis, type II acromion and AC joint space narrowing without acute bony abnormality. ZACHARIAH YI PA-C [address] [facility],[address] [address], [place], [address], [place] - [facility] 05/06/2023 07:15:15 08/05/2023 text/html Larry 63-year-old male degenerative joint disease of both shoulders last cortisone injections in June 2023. Since then they have worn off for which she is here for follow-up evaluation and possible bilateral cortisone injections. Interval change in history he did undergo cervical spine surgery with hardware by Dr. Jose Angel Mckinney approximately 8 weeks ago which we have obtained clearance via phone call to his office this morning allowing the above-noted patient to receive cortisone injections of both shoulders. Patient states decreased range of motion and pain with overhead lifting which has been chronic in nature he gets good relief with cortisone injections. He is trying to stave off total joint replacement surgery as long as feasibly possible. ZACHARIAH YI PA-C [address], [place], [address], [place] - [facility] 08/05/2023 12:46:53 11/18/2023 text/html Larry 63-year-old male degenerative joint disease of both shoulders last cortisone injections in 08/05/2023.Since then they have worn off for which he is here for follow-up evaluation and possible bilateral cortisone injections. Patient states decreased range of motion and pain with overhead lifting which has been chronic in nature he gets good relief with cortisone injections. He is trying to stave off total joint replacement surgery as long as feasibly possible. ZACHARIAH YI PA-C [address] [address], [place], [address], [place] - [facility] 11/18/2023 09:49:15 03/02/2024 text/html ROS as noted in the HPI This is a 63-year-old [id number] male who presents with right worse than left shoulder pain. He has been seeing Zachariah Yi in the past for bilateral cortisone injections. His last 1 was 11/18/2023. He says this last for about 2 months and then the pain starts to return. His right side hurts all the time with activities and at night. The left side he feels like he is compensating and is painful with activities. He understands he needs a right total shoulder replacement however has been putting it off because he had recent cervical spine surgery last fall and was recovering from this. He is not ready to consider surgery at this point.He has history of subacromial decompression on the left side and multiple shoulder arthroscopic surgeries on the right side. Morelia Hernandez MD [address] [address], [place], [address], [facility] - [facility] 03/02/2024 11:53:35 06/15/2024 text/html ROS as noted in the HPI He follows up for his right shoulder glenohumeral joint arthritis and left shoulder calcific tendinitis, he is status post steroid injections on 03/02/2024. He got pain relief for about 2 months however pain has been recurring recently. He notes pain worse in the right side than the left side. He takes [id number] medication when he has pain. Morelia Hernandez MD [address] [address], [place], [address], [place] - [facility] 06/15/2024 12:29:00
--- OUTSIDE RECORDS SUMMARY | 2025-06-27 22:00 | XMS_ITS | Clinical Summary ---
Author Organization [facility] Address [address] [place] [address] Care Team Providers Care Wood Shingle Roofer Name Role Phone Kavon Maldonado MD Primary Care Provider + [phone] Allergies Active Allergy Reactions Criticality Noted Date [...] age to complete this topic Care Teams Wood Shingle Roofer Relationship Specialty Start Date End Date Kavon Maldonado MD [address] [place] [id number] PCP - General Internal Medicine 07/07/18
--- OUTSIDE RECORDS SUMMARY | 2025-06-27 22:01 | XMS_ITS | Data Portability ---
Author Organization [facility], Main Office Address [address] [facility] [address] [place] [address] Care Team Providers Care Ampoule Examiner Name Role Phone KAVON LEVINE Primary Care Provider [phone] MELBA MOORE Lay Out Carpenter CASS NAGY Frame Fixer TORRIE LYN Urologist [phone] CAMILLE APARICIO Infectious Disease [phone] GLADYS GALVAN Neurologist HUONG GARCIA Tire Assembler JACY VILLELA Phys. Med. & Rehab [phone] ELOY [place] Neurosurgeon MARSHALL DERMATOLOGY Frame Fixer [phone] BRITTANI RAMIRES Orthopedic Surgeon [phone] Assessment No assessment recorded. Plan of Treatment Reminders Order Date Submit Date Provider Last Modified By Organization Details Last Modified Time Details Appointments FOLLOW UP 2025 10:45A M Kavon Levine MD Not available Not available Not available Lab vitami n B12, serum 2024 025 DEMARCUS [facility] (Centralized Electronic Ordering - All Locations), Patient Can Go To The Location Of Their Choice, [id number] 04/12/2025 10:49:15 CMP, serum or plasma 2024 025 DEMARCUS [facility] (Centralized Electronic Ordering - All Locations), Patient Can Go To The Location Of Their Choice, [id number] 04/12/2025 10:49:16 CBC w/ auto diff 2024 025 DEMARCUS [facility] (Centralized Electronic Ordering - All Locations), Patient Can Go To The Location Of Their Choice, [id number] 04/12/2025 10:49:16 TSH, ultra- sensit milla, serum 2024 025 DEMARCUS [facility] (Centralized Electronic Ordering - All Locations), Patient Can Go To The Location Of Their Choice, [id number] 01/10/2025 08:12:11 magnes ium, serum or plasma 2024 025 DEMARCUS [facility] (Centralized Electronic Ordering - All Locations), Patient Can Go To The Location Of Their Choice, [id number] 01/10/2025 08:12:12 urinal ysis, comple te 2024 025 DEMARCUS [facility], [address], [address], [place], [address], 01/10/2025 08:12:10 CMP, serum or plasma 2024 025 DEMARCUS [facility], [address], [address], [place], [address], 01/10/2025 08:12:09 CBC w/ auto diff 2024 025 DEMARCUS [facility], [address], [address], [place], [address], 01/10/2025 08:12:09 lipid panel, serum 2024 025 DEMARCUS [facility], [address], [address], [place], [address], 01/10/2025 08:12:10 rapid flu (A+B) 2024 025 DEMARCUS In-Office Order, Internal Use Only DO Not Attach Compendium DO Not Attach Compendium, Do Not Delete/merge, [id number] 11/04/2024 10:23:20 Referral nutrit ionist /dieti gerber referr al 2024 025 T[facility], [address], [address], [place], [address], 04/12/2025 11:14:19 nutrit ionist /david mayes referr al 2024 025 [email or web address] Not available 02/16/2025 11:05:03 orthop edic surgeo n referr al - Injury to left should er after a fall . He has acute pain in a should er that has chroni c pain for which he receiv es regula r inject ions. 2023 024 [email or web address] [facility], [address], [address], [place], [address], 07/31/2024 09:26:39 Procedures None record ed. Surgeries None record ed. Imaging barium swallo w study - rule out stenos is 2024 025 [facility] (Ultrasound), [address] [place], [address], 03/28/2025 13:27:11 electr ocardi ogram 2024 025 [email or web address] In-Office Order, Internal Use Only DO Not Attach Compendium DO Not Attach Compendium, Do Not Delete/merge, [id number] 01/08/2025 14:21:28 XR, chest, 2 view - rule out pneumo reji 2024 025 moni [facility], [address] [facility], [place], [address], 11/04/2024 17:24:01 Medication Orders lisino pril 20 mg tablet 2024 025 [facility], [place], [address], 06/21/2025 13:27:29 olopat adine 0.1 % eye drops 2024 025 [id number], [address] [place] [address], [id number], 01/08/2025 13:56:49 benzon atate 200 mg capsul e 2024 025 [facility] #13964, [address] [place] [place] [address], [id number], 01/08/2025 13:10:35 Delsym 12 hour 30 mg/5 mL oral suspen werner,e xtende d releas e 2024 025 [facility] #[id number], [address] [place] [place] [address], [id number], 04/12/2025 10:16:52 oselta mivir 75 mg capsul e 2024 025 [facility] #77167, [address] [place] [place] [address], [id number], 01/08/2025 13:11:38 predni sone 20 mg tablet 2024 025 [facility] #[id number], [address] [place] [place] [address], [id number], 01/08/2025 13:11:42 tizani dine 4 mg tablet 2023 024 [facility] #75062, [address] [place] [place] [address], [id number], 01/08/2025 13:11:52 hydroc odone 5 mg-beth tamino phen 325 mg tablet 2023 025 [facility] #[id number], [address] [place] [place] [address], [id number], 11/04/2024 10:09:16 Patient TargetsNo targets recorded. Patient Instructions Encounter Date Encounter Id Patient Instructions Last Modified By Organization Details Last Modified Time 07/26/2024 [id number] biceps tendiniti s: exercises [email or web address] Not available 07/26/2024 11:04:51 11/04/2024 [id number] learning about fever awychowski Not available 11/04/2024 10:14:47 cough: care instructions awychowski Not available 11/04/2024 10:37:14 01/08/2025 [id number] sleep apnea: car e instructions awychowski Not available 01/08/2025 13:49:27 thrombocytopenia : care instructions awychowski Not available 01/08/2025 13:49:28 high blood pressure: care instructions awychowski Not available 01/08/2025 13:49:27 learning about h igh blood pressure awychowski Not available 01/08/2025 13:49:28 gastroesophageal reflux disease (GERD): care instructions awychowski Not available 01/08/2025 13:49:27 Starting a Weight-Loss Plan: Care Instructions awychowski Not available 01/08/2025 13:49:27 04/12/2025 [id number] sleep apnea: car e instructions awychowski Not available 04/12/2025 10:49:03 ulnar neuropathy (handlebar palsy): exercises awychowski Not available 04/12/2025 10:49:03 esophageal dilation: before your procedure awychowski Not available 04/12/2025 10:49:03 high blood pressure: care instructions awychowski Not available 04/12/2025 10:49:03 learning about h igh blood pressure awychowski Not available 04/12/2025 10:49:03 Metabolic Dysfunction-Associa jeff Steatotic Liver Disease (MASLD): Care Instructions awychowski Not available 04/12/2025 10:49:03 body mass index: care instructions awychowski Not available 04/12/2025 10:49:03 learning about healthy weight awychowski Not available 04/12/2025 10:49:03 06/21/2025 [id number] body mass index: care instructions awychowski Not available 06/21/2025 13:27:27 learning about healthy weight awychowski Not available 06/21/2025 13:27:27 Reason for Referral Orthopedic Surgeon Referral for Bicipital tenosynovitis Injury to left shoulder after a fall 07/23/24. He has acute pain in a shoulder that has chronic pain for which he receives regular injections. Referring Physician: Brent Monterroso, [facility], Encounter Date: 07/26/2024 Senior Software Systems Engineer/dietitian Refer ral for Body mass index 30+ - obesity Referring Physician: Kavon Levine [facility], Encounter Date: 01/08/2025 Senior Software Systems Engineer/dietitian Refer ral for Body mass index 30+ - obesity Referring Physician: Kavon Levine [facility], Encounter Date: 04/12/2025 Results Created Date Observation Date Name Description Value Unit Range Abnormal Flag Note LastModifiedBy Organization Detail LastModifiedTime 11/05/1911/04/2024 rapid flu (A+B) Flu A positi ve Not Available In-Office Order Internal Use Only DO Not Attach Compendium DO Not Attach Compendium, Do Not Delete/merge, [id number] 11/04/2024 10:03:51 11/05/1911/04/2024 rapid flu (A+B) Flu B negati ve Not Available In-Office Order Internal Use Only DO Not Attach Compendium DO Not Attach Compendium, Do Not Delete/merge, [id number] 11/04/2024 10:03:51 01/10/2001/09/2025 CBC WITH DIFFE RENTI AL/PL ATELE T WBC 4.8 x10e3 /uL 3.4-10 .8 normal Not Available [facility] ([facility]) [address] [place], [address], 01/10/2025 08:12:09 01/10/2001/09/2025 CBC WITH DIFFE RENTI AL/PL ATELE T RBC 4.91 x10e6 /uL 4.14-5 .80 normal Not Available [facility] ([facility]) [address] [place], [address], 01/10/2025 08:12:09 01/10/20 25 01/09/2025 CBC WITH DIFFE RENTI AL/PL ATELE T hemoglobin 15.7 g/dL 13.0-1 7.7 normal Not Available [facility] ([facility]) [address] [place], [address], 01/10/2025 08:12:09 01/10/20 25 01/09/2025 CBC WITH DIFFE RENTI AL/PL ATELE T hematocrit 45.3 % 37.5-5 1.0 normal Not Available [facility] ([facility]) [address] [place], [address], 01/10/2025 08:12:09 01/10/20 25 01/09/2025 CBC WITH DIFFE RENTI AL/PL ATELE T MCV 92 fL 79-97 normal Not Available [facility] ([facility]) [address] [facility], [place], [address], 01/10/2025 08:12:09 01/10/2001/09/2025 CBC WITH DIFFE RENTI AL/PL ATELE T MCH 32.0 pg 26.6-3 3.0 normal Not Available [facility] ([facility]) [address] [place], [address], 01/10/2025 08:12:09 01/10/20 25 01/09/2025 CBC WITH DIFFE RENTI AL/PL ATELE T MCHC 34.7 g/dL 31.5-3 5.7 normal Not Available [facility] ([facility]) [address] [place], [address], 01/10/2025 08:12:09 01/10/20 25 01/09/2025 CBC WITH DIFFE RENTI AL/PL ATELE T RDW 14.4 % 11.6-1 5.4 Not Available [facility] ([facility]) [address] [place], [address], 01/10/2025 08:12:09 01/10/20 25 01/09/2025 CBC WITH DIFFE RENTI AL/PL ATELE T platelets 108 x10e3 /uL 150-45 0 below low normal Not Available [facility] ([facility]) [address] [facility], [place], [address], 01/10/2025 08:12:09 01/10/20 25 01/09/2025 CBC WITH DIFFE RENTI AL/PL ATELE T neutrophils 62 % not estab. normal Not Available [facility] ([facility]) [address] [facility], [place], [address], 01/10/2025 08:12:09 01/10/20 25 01/09/2025 CBC WITH DIFFE RENTI AL/PL ATELE T lymphs 26 % not estab. normal Not Available [facility] ([facility]) [address] [facility], [place], [address], 01/10/2025 08:12:09 01/10/20 25 01/09/2025 CBC WITH DIFFE RENTI AL/PL ATELE T monocytes 8 % not estab. normal Not Available [facility] ([facility]) [address] [facility], [place], [address], 01/10/2025 08:12:09 01/10/2001/09/2025 CBC WITH DIFFE RENTI AL/PL ATELE T eos 3 % not estab. normal Not Available [facility] ([facility]) [address] [place], [address], 01/10/2025 08:12:09 01/10/2001/09/2025 CBC WITH DIFFE RENTI AL/PL ATELE T basos 1 % not estab. normal Not Available [facility] ([facility]) [address] [place], [address], 01/10/2025 08:12:09 01/10/20 25 01/09/2025 CBC WITH DIFFE RENTI AL/PL ATELE T immature cells BACK WINDER Not Available [facility] ([place] [facility]) [address] [place], [address], 01/10/2025 08:12:09 01/10/20 25 01/09/2025 CBC WITH DIFFE RENTI AL/PL ATELE T neutrophils (absolute) 3.0 x10e3 /uL 1.4-7. 0 normal Not Available [facility] ([facility]) [address] [place], [address], 01/10/2025 08:12:09 01/10/2001/09/2025 CBC WITH DIFFE RENTI AL/PL ATELE T lymphs (absolute) 1.3 x10e3 /uL 0.7-3. 1 normal Not Available [facility] ([facility]) [address] [place], [address], 01/10/2025 08:12:09 01/10/20 25 01/09/2025 CBC WITH DIFFE RENTI AL/PL ATELE T monocytes(ab solute) 0.4 x10e3 /uL 0.1-0. 9 normal Not Available [facility] ([facility]) [address] [place], [address], 01/10/2025 08:12:09 01/10/2001/09/2025 CBC WITH DIFFE RENTI AL/PL ATELE T eos (absolute) 0.1 x10e3 /uL 0.0-0. 4 normal Not Available [facility] ([facility]) [address] [place], [address], 01/10/2025 08:12:09 01/10/20 25 01/09/2025 CBC WITH DIFFE RENTI AL/PL ATELE T baso (absolute) 0.0 x10e3 /uL 0.0-0. 2 normal Not Available [facility] ([facility]) [address] [place], [address], 01/10/2025 08:12:09 01/10/2001/09/2025 CBC WITH DIFFE RENTI AL/PL ATELE T immature granulocytes 0 % not estab. Not Available [facility] ([facility]) [address] [facility], [place], [address], 01/10/2025 08:12:09 01/10/20 25 01/09/2025 CBC WITH DIFFE RENTI AL/PL ATELE T immature grans (abs) 0.0 x10e3 /uL 0.0-0. 1 Not Available [facility] ([facility]) [address] [facility], [place], [address], 01/10/2025 08:12:09 01/10/20 25 01/09/2025 CBC WITH DIFFE RENTI AL/PL ATELE T NRBC BACK WINDER Not Available [facility] ([facility]) [address] [facility], [place], [address], 01/10/2025 08:12:09 01/10/20 25 01/09/2025 CBC WITH DIFFE RENTI AL/PL ATELE T hematology comments: BACK WINDER Not Available [facility] ([facility]) [address] [facility], [place], [address], 01/10/2025 08:12:09 01/10/20 25 01/10/2025 COMP. METAB OLIC PANEL (14) glucose 129 mg/dL 70-99 above high normal Not Available [facility] ([facility]) [address] [facility] [place], [address], 01/10/2025 08:12:09 01/10/20 25 01/10/2025 COMP. METAB OLIC PANEL (14) BUN 15 mg/dL 8-27 normal Not Available [facility] ([facility]) [address] [facility] [place], [address], 01/10/2025 08:12:09 01/10/20 25 01/10/2025 COMP. METAB OLIC PANEL (14) creatinine 0.75 mg/dL 0.76-1 .27 below low normal Not Available [facility] ([facility]) [address] [place], [address], 01/10/2025 08:12:09 01/10/20 25 01/10/2025 COMP. METAB OLIC PANEL (14) eGFR 102 mL/mi n/1.7 3 >59 normal Not Available [facility] ([facility]) [address], [place], [address], 01/10/2025 08:12:09 01/10/20 25 01/10/2025 COMP. METAB OLIC PANEL (14) BUN/creatini ne ratio 20 10-24 normal Not Available [facility] ([facility]) [address] [place], [address], 01/10/2025 08:12:09 01/10/20 25 01/10/2025 COMP. METAB OLIC PANEL (14) sodium 144 mmol/ L 134-14 4 normal Not Available [facility] ([facility]) [address] [place], [address], 01/10/2025 08:12:09 01/10/20 25 01/10/2025 COMP. METAB OLIC PANEL (14) potassium 4.3 mmol/ L 3.5-5. 2 normal Not Available [facility] ([facility]) [address] [place], [address], 01/10/2025 08:12:09 01/10/20 25 01/10/2025 COMP. METAB OLIC PANEL (14) chloride 105 mmol/ L 96-106 normal Not Available [facility] ([facility]) [address] [facility] [place], [address], 01/10/2025 08:12:09 01/10/20 25 01/10/2025 COMP. METAB OLIC PANEL (14) carbon dioxide, total 21 mmol/ L 20-29 normal Not Available [facility] ([facility]) [address] [facility] [place], [address], 01/10/2025 08:12:09 01/10/20 25 01/10/2025 COMP. METAB OLIC PANEL (14) calcium 9.9 mg/dL 8.6-10 .2 normal Not Available [facility] ([facility]) [address] [place], [address], 01/10/2025 08:12:09 01/10/20 25 01/10/2025 COMP. METAB OLIC PANEL (14) protein, total 6.7 g/dL 6.0-8. 5 normal Not Available [facility] ([facility]) [address] [place], [address], 01/10/2025 08:12:09 01/10/20 25 01/10/2025 COMP. METAB OLIC PANEL (14) albumin 4.7 g/dL 3.9-4. 9 normal Not Available [facility] ([facility]) [address] [place], [address], 01/10/2025 08:12:09 01/10/20 25 01/10/2025 COMP. METAB OLIC PANEL (14) globulin, total 2.0 g/dL 1.5-4. 5 Not Available [facility] ([facility]) [address] [place], [address], 01/10/2025 08:12:09 01/10/20 25 01/10/2025 COMP. METAB OLIC PANEL (14) bilirubin, total 0.7 mg/dL 0.0-1. 2 normal Not Available [facility] ([facility]) [address] [place], [address], 01/10/2025 08:12:09 01/10/20 25 01/10/2025 COMP. METAB OLIC PANEL (14) alkaline phosphatase 75 IU/L 44-121 normal Not Available [facility] ([facility]) [address] [place], [address], 01/10/2025 08:12:09 01/10/20 25 01/10/2025 COMP. METAB OLIC PANEL (14) AST (SGOT) 77 IU/L 0-40 above high normal Not Available [facility] ([facility]) [address] [place], [address], 01/10/2025 08:12:09 01/10/20 25 01/10/2025 COMP. METAB OLIC PANEL (14) ALT (SGPT) 143 IU/L 0-44 above high normal Not Available [facility] ([facility]) [address] [facility], [place], [address], 01/10/2025 08:12:09 01/10/20 25 01/09/2025 URINA LYSIS , COMPL ETE specific gravity 1.025 1.005- 1.030 normal Not Available [facility] ([facility]) [address] [place], [address], 01/10/2025 08:12:10 01/10/20 25 01/09/2025 URINA LYSIS , COMPL ETE pH 7.0 5.0-7. 5 normal Not Available [facility] ([facility]) [address] [place], [address], 01/10/2025 08:12:10 01/10/20 25 01/09/2025 URINA LYSIS , COMPL ETE urine-color YELLOW yellow Not Available [facility] ([facility]) [address] [place], [address], 01/10/2025 08:12:10 01/10/20 25 01/09/2025 URINA LYSIS , COMPL ETE appearance CLEAR clear Not Available [facility] ([facility]) [address] [place], [address], 01/10/2025 08:12:10 01/10/20 25 01/09/2025 URINA LYSIS , COMPL ETE WBC esterase NEGATI VE negati ve Not Available [facility] ([facility]) [address] [place], [address], 01/10/2025 08:12:10 01/10/20 25 01/09/2025 URINA LYSIS , COMPL ETE protein 1+ negati ve/tra ce abnormal Not Available [facility] ([facility]) [address] [place], [address], 01/10/2025 08:12:10 01/10/20 25 01/09/2025 URINA LYSIS , COMPL ETE glucose NEGATI VE negati ve Not Available [facility] ([facility]) [address] [place], [address], 01/10/2025 08:12:10 01/10/20 25 01/09/2025 URINA LYSIS , COMPL ETE ketones NEGATI VE negati ve Not Available [facility] ([facility]) [address] [place], [address], 01/10/2025 08:12:10 01/10/20 25 01/09/2025 URINA LYSIS , COMPL ETE occult blood NEGATI VE negati ve Not Available [facility] ([facility]) [address] [place], [address], 01/10/2025 08:12:10 01/10/20 25 01/09/2025 URINA LYSIS , COMPL ETE bilirubin NEGATI VE negati ve Not Available [facility] ([facility]) [address] [place], [address], 01/10/2025 08:12:10 01/10/20 25 01/09/2025 URINA LYSIS , COMPL ETE urobilinogen ,semi-qn 0.2 mg/dL 0.2-1. 0 normal Not Available [facility] ([facility]) [address] [place], [address], 01/10/2025 08:12:10 01/10/20 25 01/09/2025 URINA LYSIS , COMPL ETE nitrite, urine NEGATI VE negati ve Not Available [facility] ([facility]) [address] [facility], [place], [address], 01/10/2025 08:12:10 01/10/20 25 01/09/2025 URINA LYSIS , COMPL ETE microscopic examination SEE BELOW: Micro wilneri c was indic ated and was perfo rmed. Not Available [facility] ([facility]) [address] [facility], [place], [address], 01/10/2025 08:12:10 01/10/20 25 01/09/2025 URINA LYSIS , COMPL ETE microscopic examination BACK WINDER Not Available [facility] ([facility]) [address] [facility], [place], [address], 01/10/2025 08:12:10 01/10/20 25 01/10/2025 URINA LYSIS , COMPL ETE WBC NONE SEEN /hpf 0 - 5 Not Available [facility] ([facility]) [address] [facility], [place], [address], 01/10/2025 08:12:10 01/10/20 25 01/10/2025 URINA LYSIS , COMPL ETE RBC NONE SEEN /hpf 0 - 2 Not Available [facility] ([facility]) [address] [facility], [place], [address], 01/10/2025 08:12:10 01/10/20 25 01/10/2025 URINA LYSIS , COMPL ETE epithelial cells (non renal) NONE SEEN /hpf 0 - 10 Not Available [facility] ([facility]) [address] [facility], [place], [address], 01/10/2025 08:12:10 01/10/20 25 01/10/2025 URINA LYSIS , COMPL ETE epithelial cells (renal) BACK WINDER Not Available [facility] ([facility]) [address] [facility], [place], [address], 01/10/2025 08:12:10 01/10/20 25 01/10/2025 URINA LYSIS , COMPL ETE casts NONE SEEN /lpf none seen Not Available [facility] ([facility]) [address] [facility], [place], [address], 01/10/2025 08:12:10 01/10/20 25 01/10/2025 URINA LYSIS , COMPL ETE cast type BACK WINDER Not Available [facility] ([facility]) [address] [facility], [place], [address], 01/10/2025 08:12:10 01/10/20 25 01/10/2025 URINA LYSIS , COMPL ETE crystals BACK WINDER Not Available [facility] ([facility]) [address] [facility], [place], [address], 01/10/2025 08:12:10 01/10/20 25 01/10/2025 URINA LYSIS , COMPL ETE crystal type BACK WINDER Not Available [facility] ([facility]) [address] [facility], [place], [address], 01/10/2025 08:12:10 01/10/20 25 01/10/2025 URINA LYSIS , COMPL ETE mucus threads BACK WINDER Not Available [facility] ([facility]) [address] [facility], [place], [address], 01/10/2025 08:12:10 01/10/20 25 01/10/2025 URINA LYSIS , COMPL ETE bacteria NONE SEEN none seen/f ew Not Available [facility] ([facility]) [address] [facility], [place], [address], 01/10/2025 08:12:10 01/10/20 25 01/10/2025 URINA LYSIS , COMPL ETE yeast BACK WINDER Not Available [facility] ([facility]) [address] [facility], [place], [address], 01/10/2025 08:12:10 01/10/20 25 01/10/2025 URINA LYSIS , COMPL ETE trichomonas BACK WINDER Not Available [facility] ([facility]) [address] [place], [address], 01/10/2025 08:12:10 01/10/20 25 01/10/2025 URINA LYSIS , COMPL ETE comment BACK WINDER Not Available [facility] ([facility]) [address] [place], [address], 01/10/2025 08:12:10 01/10/20 25 01/10/2025 LIPID PANEL cholesterol, total 171 mg/dL 100-19 9 normal Not Available [facility] ([facility]) [address] [place], [address], 01/10/2025 08:12:10 01/10/20 25 01/10/2025 LIPID PANEL triglyceride s 95 mg/dL 0-149 normal Not Available [facility] ([facility]) [address] [place], [address], 01/10/2025 08:12:10 01/10/20 25 01/10/2025 LIPID PANEL HDL cholesterol 80 mg/dL >39 normal Not Available [facility] ([facility]) [address] [place], [address], 01/10/2025 08:12:10 01/10/20 25 01/10/2025 LIPID PANEL VLDL cholesterol alejandro 17 mg/dL 5-40 Not Available [facility] ([facility]) [address] [place], [address], 01/10/2025 08:12:10 01/10/20 25 01/10/2025 LIPID PANEL LDL chol calc ([facility]) 74 mg/dL 0-99 Not Available [facility] ([facility]) [address] [place], [address], 01/10/2025 08:12:10 01/10/20 25 01/10/2025 LIPID PANEL LDL calc comment: BACK WINDER Not Available [facility] ([facility]) [address] [facility], [place], [address], 01/10/2025 08:12:10 01/10/2001/10/2025 TSH RFX ON ABNOR MAL TO FREE T4 TSH 1.790 uIU/m L 0.450- 4.500 normal Not Available [facility] ([facility]) [address], [place], [address], 01/10/2025 08:12:11 01/10/2001/10/2025 MAGNE SIUM magnesium 2.2 mg/dL 1.6-2. 3 normal Not Available [facility] ([facility]) [address], [place], [address], 01/10/2025 08:12:12 11/05/1911/04/2024 XR, chest , 2 view Chest 2 Views Fronta l and Lat Reason : Fever COMPAR HALIE: 016 FINDIN GS: LINES AND TUBES: None. LUNGS AND PLEURA : Low lung volume s with mild basila r atelec tasis. Lungs are otherw ise clear with no consol idatio n. No pleura l effusi on. No pneumo thorax . HEART, MEDIAS TINUM AND MARU: Heart is normal in size. Normal medias tinal and hilar contou r. BONES AND SOFT TISSUE S: No acute abnorm ality. ACF hardwa re. Right should er arthro plasty . IMPRES WERNER: No acute abnorm ality. WSN: [id number] Orderi ng Physic mathieu: Kavon Steele Dictat ed By: Janes Haile MD Dictat ed Date/T audrey: 4:28 pm Review ed By: Janes Haile MD Signed By: Janes Haile MD Signed Date/T audrey: 4:28 pm Transc ribed By: CSB Transc ribed Date/T audrey: 4:27 pm Patien t Class: Outpat ient awychowski [facility] (Outpt Imaging) [address], [place], [address], 01/08/2025 13:29:39 01/09/2001/08/2025 elect micaela chang am No observ ation record ed. moni In-Office Order Internal Use Only DO Not Attach Compendium DO Not Attach Compendium, Do Not Delete/merge, [id number] 01/08/2025 21:47:34 01/09/20 elect micaela chang am No observ ation record ed. DEMARCUS In-Office Order Internal Use Only DO Not Attach Compendium DO Not Attach Compendium, Do Not Delete/merge, [id number] 01/09/2025 12:00:09 01/20/2001/19/2025 US, liver US Liver Reason : ELEVAT ED TRANSA MINASE LEVEL R74.01 ; COMPAR HALIE: Pertin ent portio n of CT chest withou t contra st 02/05/20 22. IMAGIN G TECHNI QUE: Graysc jessica and color Dopple r ultras ound examin ation of the liver. FINDIN GS: Liver: Diffus vitaliy echoge miki parenc hyma. No suspic ious lesion . Smooth hepati c contou r. Main portal vein patent with normal hepato petal direct ion of flow. Biliar y Tree: No intrah epatic or extrah epatic bile duct dilati on is identi fied. Common duct: 0.3 cm. IMPRES WERNER: Echoge miki liver likely repres enting hepati c steato sis. No suspic ious lesion . I have person ally review ed the images and I agree with this report . WSN: [id number] Orderi ng Physic mathieu: Kavon Steele Dictat ed By: Holger Mesa MD Dictat ed Date/T audrey: 11:51 a Review ed By: Renny Avalos MD Signed By: Renny Avalos MD Signed Date/T audrey: 11:56 am Transc ribed By: CHRISTOPHER Transc ribed Date/T audrey: 10:06 am Patien t Class: Outpat ient moni [facility] (Outpt Imaging) [address], [place], [address], 05/16/2025 22:00:29 03/28/20 25 03/28/2025 scott michelle study PROCED URE: XR Esopha heron BS Single Contra st CLINIC AL INDICA TION: Reason : R13.19 OTHER DYSPHA ZULEYMA RULE OUT STENOS IS; Clinic al Questi on(s): Other: COMPAR ISONS: Barium esopha gram 02/07/20 16 FLUORO SCOPY TIME: 2 minute s 24 second s EXPOSU RE: 1560.7 uGym2 (Dose Area Produc t) TECHNI QUE: Barium contra st esopha gram was perfor med by Dr. Dillon Singer . FINDIN GS: Katherineo w: Normal oral and pharyn geal phases with no laryng eal penetr ation or subglo ttic aspira tion. Esopha heron: Normal in contou r and mucosa l appear ance. Tertia ry contra ctions seen in the distal esopha heron, with prompt transi t of liquid barium into the stomac h. Small axial reduci ble hiatal hernia measur ing less than 1 cm in diamet er. Despit e the use of provoc ative maneuv ers, no gastro esopha geal reflux was apprec iated during the study. A 13 mm barium tablet was impede d by a narrow ing in the distal esopha heorn, subseq uently passin g into the stomac h after approx imatel y 5 minute s. No eviden ce of esopha geal web or outpou geronimo. The stomac h and proxim al duoden um are grossl y normal . Contra st prompt ly emptie s from the stomac h into a nondil ated duoden um. No gastri c outlet obstru ction. IMPRES WERNER: Modera te narrow ing of the distal esopha heron/GE juncti on. Esopha geal dysmot ility in the distal esopha heron Small type I hiatal hernia Correl ation with upper endosc opy is advise d for furthe r evalua tion of this findin g.. By unders igning and finali edwin the report , the attend ing radiol ogist confir ms he/she has person ally review ed and interp reted the images and agrees with the descri ption of the ronda bryan. I have person jennifery review ed the images and I agree with this report . WSN: [id number] Orderi ng Physic mathieu: Kavon Steele Dictat ed By: Dillon Singer DO Dictat ed Date/T audrey: 1:21 pm Review ed By: Jl guerrero MD, Ky V Signed By: Jl guerrero MD, Ky V Signed Date/T audrey: 1:26 pm Transc ribed By: CHRISTOPHER Transc ribed Date/T audrey: 9:21 am Patien t Class: Outpat ient [facility] (Ultrasound) [address] [place] [address], [address], 05/16/2025 22:00:01 03/28/20 25 03/28/2025 baricelina turner ow study No observ ation record ed. [facility] [address] [place], [address], 05/16/2025 22:00:03 06/14/20 25 06/13/2025 elect romyo gram + nerve condu ction study No observ ation record ed. formerly [facility] [address] [place], [address], 06/21/2025 13:19:29 Result Notes Documentation Provider Name and Address Organization Details Recorded Time Xr, Chest, 2 View : Chest 2 Views Frontal and Lat Reason: Fever COMPARISON: 04/30/2016 FINDINGS: LINES AND TUBES: None. LUNGS AND PLEURA: Low lung volumes with mild basilar atelectasis. Lungs are otherwise clear with no consolidation. No pleural effusion. No pneumothorax. HEART, MEDIASTINUM AND MARU: Heart is normal in size. Normal mediastinal and hilar contour. BONES AND SOFT TISSUES: No acute abnormality. ACF hardware. Right shoulder arthroplasty. IMPRESSION: No acute abnormality. WSN: [id number] Ordering Physician: Kavon Levine Dictated By: Carlos Phipps MD Dictated Date/Time: 11/04/24 4:28 pm Reviewed By: Carlos Phipps MD Signed By: Carlos Phipps MD Signed Date/Time: 11/04/24 4:28 pm Transcribed By: CHRISTOPHER Transcribed Date/Time: 11/04/24 4:27 pm Patient Class: Outpatient Kavon Levine MD [address], [address] 01/08/2025 13:29:39 Barium Swallow Study : PROCEDURE: XR Esophagus BS Single Contrast CLINICAL INDICATION: Reason: R13.19 OTHER DYSPHAGIA RULE OUT STENOSIS; Clinical Question(s): Other: COMPARISONS: Barium esophagram 02/07/2016 FLUOROSCOPY TIME: 2 minutes 24 seconds EXPOSURE: 1560.7 uGym2 (Dose Area Product) TECHNIQUE: Barium contrast esophagram was performed by Dr. Dillon Singer. FINDINGS: Swallow: Normal oral and pharyngeal phases with no laryngeal penetration or subglottic aspiration. Esophagus: Normal in contour and mucosal appearance. Tertiary contractions seen in the distal esophagus, with prompt transit of liquid barium into the stomach. Small axial reducible hiatal hernia measuring less than 1 cm in diameter. Despite the use of provocative maneuvers, no gastroesophageal reflux was appreciated during the study. A 13 mm barium tablet was impeded by a narrowing in the distal esophagus, subsequently passing into the stomach after approximately 5 minutes. No evidence of esophageal web or outpouching. The stomach and proximal duodenum are grossly normal. Contrast promptly empties from the stomach into a nondilated duodenum. No gastric outlet obstruction. IMPRESSION: Moderate narrowing of the distal esophagus/GE junction. Esophageal dysmotility in the distal esophagus Small type I hiatal hernia Correlation with upper endoscopy is advised for further evaluation of this finding.. By undersigning and finalizing the report, the attending radiologist confirms he/she has personally reviewed and interpreted the images and agrees with the description of the findings. I have personally reviewed the images and I agree with this report. WSN: [id number] Ordering Physician: Kavon Levine Dictated By: Dillon Singer DO Dictated Date/Time: 03/28/25 1:21 pm Reviewed By: Ky Clay MD, V Signed By: yK Clay MD, V Signed Date/Time: 03/28/25 1:26 pm Transcribed By: CHRISTOPHER Transcribed Date/Time: 03/28/25 9:21 am Patient Class: Outpatient Kavon Levine MD [address], [place], [address], [facility] 05/16/2025 22:00:01 Problems Name Problem SNOMED Code Status Onset Date Resolution Date Notes Provider Name and Address Organization Details Recorded Time Disorder of urinary bladder 78545836 Active Kavon Levine MD [address] [facility] [address], [place], [address], [facility] 6 09:07:01 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 [address], [place], [address], [facility] 6 09:07:01 Lyme disease 45826157 Active Kavon Levine MD [address], [place], [address], [facility] 6 09:07:01 Panic attack 647350087 Completed 08/25/2022 Kavon Levine MD [address] [facility] [address], [place], [address], [facility] 2 10:12:56 Environm ental allergy 637276896 Active Kavon Levine MD [address], [place], [address], [facility] 6 09:07:01 Body mass index 30+ - obesity 641259566 Completed 10/04/2017 Kavon Levine MD [address] [facility] [address], [place], [address], [facility] 5 13:36:35 Contact dermatit is 81799356 Completed 10/04/2017 Kavon Levine MD [address], [place], [address], [facility] 8 10:48:55 Disorder of skin 34496727 Completed 04/23/2016 Kavon Levine MD [address], [place], [address], [facility] 6 09:07:01 Hyperpla stic polyp of intestin e 75828102 Active Kavon Levine MD [address], [place], [address], [facility] 6 09:07:01 Thromboc ytopenic disorder 384317595 Active Kavon Levine MD [address], [place], [address], [facility] 6 09:07:01 Urine microsco py: presence of cells - finding 436873970 Completed 09/23/2016 [place], [facility] 7 10:44:28 Actinic keratosi s 656076433 Completed 10/04/2017 Kavon Levine MD [address], [place], [address], [facility] 8 10:48:09 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 366801317 Active Kavon Levine MD [address], [place], [address], [facility] 6 09:07:01 Blood in urine 24723187 Completed 09/23/2016 [place], [facility] 7 10:44:09 Hypogona dism 38069750 Active Kavon Levine MD [address], [place], [address], [facility] 6 09:07:01 Upper abdomina l pain 39389298 Completed 09/23/2016 Nelly delgadillo [place] null, [facility] 7 10:44:34 Gastroes ophageal reflux disease 732113759 Active Kavon Levine MD [address], [place], [address], [facility] 6 09:32:59 Hiatal hernia 34934856 Active Kavon Levine MD [address], [place], [address], [facility] 5 06:55:16 Chest wall pain 093444906 Completed 09/23/2016 Nelly delgadillo [place] null, [facility] 7 10:44:03 Advance directiv e giuseppe d with patient 024304635 Completed 10/04/2017 Kavon Levine MD [address], [place], [address], [facility] 8 10:47:20 Testicul ar hypofunc tion 556808799 Completed 201501/08/2025 Kavon Levine MD [address], [place], [address], [facility] 5 13:36:06 Obstruct milla sleep apnea syndrome 72530812 Active 2016 Kavon Levine MD [address], [place], [address], [facility] 7 22:31:33 Dysphagi a 89893400 Completed 201610/04/2017 Kavon Levine MD [address], [place], [address], [facility] 8 10:47:12 Insomnia 929792030 Active 2016 Kavon Levine MD [address], [place], [address], [facility] 7 11:41:51 Increase d liver function 72957647 Completed 201601/08/2025 Kavon Levine MD [address], [place], [address], [facility] 5 14:02:40 Divertic ular disease 078486096 Active 2017 Kavon Levine MD [address], [place], [address], [facility] 8 10:43:46 Greater trochant lashaun pain syndrome 4539099 Completed 201701/08/2025 Kavon Levine MD [address], [place], [address], [facility] 5 14:01:41 Hepatome maria elena 90674487 Active 2017 Kavon Levine MD [address], [place], [address], [facility] 8 12:58:09 Non-alco holic fatty liver 408243768 Active 2017 Kavon Levine MD [address], [place], [address], [facility] 8 12:58:18 Supraspi natus tendinit is 711590682 Completed 201701/08/2025 Kavon Levine MD [address], [place], [address], [facility] 5 14:03:02 Impingem ent syndrome of shoulder region 923538289 Active 2018 Kavon Levine MD [address], [place], [address], [facility] 9 12:26:13 Arthriti s of acromioc lavicula r joint 624077423 Active 2018 Kavon Levine MD [address], [place], [address], [facility] 9 12:27:08 Adhesive capsulit is of right shoulder 47224162944 9109 Completed 201808/25/2022 Kavon Levine MD [address], [place], [address], [facility] 2 10:05:25 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 935945181 Active 2019 Kavon Levine MD [address], [place], [address], [facility] 0 12:50:37 Spinal stenosis in cervical region 80233012 Completed 202001/08/2025 mild C3-C4, mild impingem ent C5-C6 Kavon Levine MD [address], [place], [address], [facility] 5 13:36:03 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 48235707675 9100 Active 2020 Kavon Levine MD [address], [place], [address], [facility] 1 12:45:34 Tendinos is of left shoulder 71533990218 955741 Active 2021 Kavon Levine MD [address], [place], [address], [facility] 2 12:24:55 Herpes zoster 1698212 Completed 202108/25/2022 Removal Reason: resolved Kavon Levine MD [address], [place], [address], [facility] 2 10:06:35 History of herpes zoster 72394829338 9108 Active 2021 Kavon Levine MD [address], [place], [place], [address], [facility] 2 10:06:18 Albuminu brock 784355885 Active 2022 Kavon Levine MD [address], [place], [address], [facility] 3 10:29:09 Cervical disc disorder 498560361 Active 2022 Kavon Levine MD [address], [place], [address], [facility] 3 20:14:38 Hypercal cemia 22679802 Completed 202204/09/2023 Kavon Levine MD [address], [place], [address], [facility] 3 07:47:51 Hypernat remia 646812732 Completed 202202/01/2023 Kavon Levine MD [address], [place], [address], [facility] 3 19:23:55 Hyperosm olality and or hypernat remia 159536771 Completed 202201/08/2025 Kavon Levine MD [address], [place], [address], [facility] 5 13:35:32 Peeling of skin 998479630 Completed 202201/08/2025 Kavon Levine MD [address], [place], [address], [facility] 5 13:35:57 Chronic kidney disease stage 1 902691463 [facility] 2022 [facility] 21:14:13 Cervical spondylo sis 905927925 Active 2022 Kavon Levine MD [address] [address], [place], [address], [facility] 3 11:12:29 Electroc ardiogra m abnormal 514394493 Active 2024 Kavon Levine MD [address] [address], [place], [address], [facility] 5 22:45:36 Body mass index 30+ - obesity 112303010 Active 2024 Kavon Levine MD [address] [address], [place], [address], [facility] 5 13:36:35 Elevated blood-pr essure reading without diagnosi s of hyperten werner 283441432 Completed 202401/08/2025 Kavon Levine MD [address] [address], [place], [address], [facility] 5 13:46:54 Impaired fasting glycemia 730505476 Active 2024 Kavon Levine MD [address] [address], [place], [address], [facility] 5 09:20:09 Enzyme level - finding 203336449 Active 2024 Kavon Levine MD [address] [address], [place], [address], [facility] 5 09:27:15 Asymptom atic proteinu brock 779863896 Active 2024 Kavon Levine MD [address], [place], [address], [facility] 5 09:27:19 Esophage al dysphagi a 67412566 Active 2024 Kavon Levine MD [address] [facility] [address], [place], [address], [facility] 5 15:53:44 Strictur e of esophagu s 65589749 Active 2024 Kavon Levine MD [address] [facility] [address], [place], [address], [facility] 5 06:58:13 Esophage al dysmotil ity 888087916 Active 2024 Kavon Levine MD [address] [facility] [address], [place], [address], [facility] 5 06:58:14 Bilatera l ulnar nerve disorder 04306893510 991940 Active 2024 Kavon Levine MD [address] [facility] [address], [place], [address], [facility] 5 08:59:25 Problem Notes None recorded. Procedures Surgical History Date Name Laterality Status Provider Name and Address Organization Details Recorded Time 025 total shoulder replacement completed Alicia Ardon MA [facility] 01/08/2025 13:15:49 023 excision of cervical intervertebral disc completed Kavon Levine MD [address] [address], [place], [address], [facility] 11/06/2023 19:57:20 023 epidural injection of cervical spine using fluoroscopic guidance completed Kavon Levine MD [address] [address], [place], [address], [facility] 04/02/2023 08:18:38 022 Colonoscopy completed Kavon Levine MD [address] [facility], [place], [address], [facility] 08/26/2022 15:03:15 020 procedure on shoulder completed Raiza Hernandez [facility] 09/12/2019 14:46:53 019 shoulder injection completed Khadijah Leger [facility] 10/11/2018 12:28:47 018 Echo transthoracic completed Kavon Levine MD [address] [address], [place], [address], [facility] 04/08/2018 09:52:55 018 Cardiovascular stress test completed Kavon Levine MD [address], [address], [facility] 04/08/2018 09:53:34 017 Joint Injection completed Kwaku Shah MD [address], [address], [facility] 09/23/2016 11:47:24 016 Advanced Care Planning completed Kavon Levine MD [address], [address], [facility] 04/23/2016 09:32:40 012 EGD completed Kavon Levine MD [address], [address], [facility] 03/08/2016 14:18:51 000 Orthopedic Surgery completed Kavon Levine MD [address], [address], [facility] 04/23/2016 09:05:07 997 Vasectomy completed Nae Betancur [facility] 04/18/2015 13:00:16 996 ENT Surgery completed Kavon Levine MD [address] [place], [address], [facility] 04/18/2015 13:39:38 996 Hemorrhoidectomy completed Naetj Betancur MA [facility] 04/18/2015 13:00:16 982 Tonsillectomy completed [place] [facility] 04/18/2015 13:00:15 Cystourethroscopy completed Kavon Levine MD [address] [facility] [address], [place], [address], [facility] 09/11/2016 12:15:53 Imaging Results None recorded. Procedure Notes None recorded. Medical Equipment None Reported. Allergies Allergen ID Allergen Name Allergen Category Reaction Reaction Severity Criticality Documentation Date Start Date Code Code System Note Provider Name and Address Organization Details Recorded Time 42067 Demerol medicatio n nausea Not available Not available 04/18/2015 22906 1 RxNorm [facility]ae [facility]audia [place] [facility] 2 10:58:48 06807 Substance with sulfonami de structure and antibacte rial mechanism of action (substanc e) medicatio n fever nausea Not available Not available Not available 04/18/2015 86712 8003 SNOMED [place] [facility]claudia [place] [facility] 2 10:58:47 65472 Cipro medicatio n other Not available Not available 04/18/2015 41309 3 RxNorm [facility]ae [facility]claudia [place] [facility] 2 10:58:42 Medications Name Sig Start Date Stop Date Status Note LastModified by Organization Details LastModified Time compound drug active Not Available Not Available Not Available carisoprod ol 350 mg tablet active Not Available Not Available Not Available fluconazol e 100 mg tablet active Not Available Not Available Not Available anastrozol e 1 mg tablet TAKE 1/4 TABLET 2 TIMES A WEEK active Not Available Not Available No t Available doxycyclin e hyclate 100 mg capsule active Not Available Not Available Not Available Delsym 12 hour 30 mg/5 mL oral suspension ,extended release Take 10 mL every 12 hours by oral route for 7 days. 03/01/ 2025 08/07 /2025 completed Not Available Not Available Not Available cefuroxime axetil 250 mg tablet active Not Available Not Available No t Available Grape Seed 50 mg capsule Take 1 capsule every day by oral route. active Not Available Not Available No t Available ketoconazo le 2 % shampoo Apply 1 applicati on every day by topical route for 14 days. 01/05 completed Not Available Not Available Not Available tizanidine 2 mg tablet TAKE 1 TABLET BY MOUTH DAILY NEEDED FOR SPASM 07/26 completed Not Available Not Available Not Available cefaclor 500 mg capsule active Not Available Not Available Not Available azithromyc in 250 mg tablet TAKE 2 TABLETS BY MOUTH FOR 1 DAY THEN TAKE 1 TABLET BY MOUTH FOR 3 DAYS 01/23 completed Not Available Not Available Not Available tizanidine 4 mg tablet TAKE 1 TABLET BY MOUTH THREE TIMES DAILY FOR NEEDED active Not Available Not Available No t Available benzonatat e 200 mg capsule TAKE 1 CAPSULE BY MOUTH THREE TIMES DAILY FOR 3 DAYS 01/08 completed Not Available Not Available Not Available hydrocodon e 5 mg-acetami nophen 325 mg tablet TAKE 1 TABLET BY MOUTH EVERY 6 HOURS FOR 5 DAYS NEEDED 11/04 completed Not Available Not Available Not Available tretinoin 0.025 % topical cream active Not Available Not Available Not Available minocyclin e 100 mg capsule active Not Available Not Available Not Available fluconazol e 200 mg tablet Take 1 tablet every day by oral route for 14 days. 06/17 completed Not Available Not Available Not Available meloxicam 15 mg tablet TAKE 1 TABLET DAILY active Not Available Not Available No t Available naltrexone 50 mg tablet Take 0.4 mg every day by oral route. 05/09 completed Not Available Not Available Not Available lisinopril 20 mg tablet Take 1 tablet every day by oral route for 90 days. 2024 active Not Available Not Available Not Avai lable prednisone 20 mg tablet Take 2 tablets every day by oral route for 3 days. 01/08 completed Not Available Not Available Not Available fluorourac il 5 % topical cream 01/05 completed Not Available Not Available Not Available pimecrolim us 1 % topical cream 04/12 completed Not Available Not Available Not Available nystatin 500,000 unit tablet TAKE 1 TABLET TWICE A DAY active Not Available Not Available No t Available Clotrim Antifungal 1 % topical cream APPLY TO THE AFFECTED AND SURROUNDI NG AREAS OF SKIN BY TOPICAL ROUTE 2 TIMES PER DAY IN THE MORNING AND EVENING active Not Available Not Available No t Available omeprazole 40 mg capsule,de layed release TAKE 1 CAPSULE DAILY DIRECTED 12/29 completed Not Available Not Available Not Available tramadol 50 mg tablet active Not Available Not Available Not Available acetaminop hen 500 mg tablet TAKE 2 TABLETS BY MOUTH THREE TIMES DAILY NEEDED 01/08 completed Not Available Not Available Not Available amoxicilli n 500 mg tablet active Not Available Not Available Not Available ondansetro n 8 mg disintegra ting tablet DISSOLVE 1 TABLET ON THE TONGUE THREE TIMES DAILY NEEDED FOR NAUSEA 01/08 completed Not Available Not Available Not Available meloxicam 7.5 mg tablet 04/23 completed Not Available Not Available Not Available amoxicilli n 875 mg tablet 01/05 completed Not Available Not Available Not Available alprazolam 0.25 mg tablet Take 1 tablet every day by oral route as needed for 30 days. 10/04 completed Not Available Not Available Not Available aspirin 325 mg tablet,del ayed release TAKE 1 TABLET BY MOUTH EVERY DAY FOR 14 DAYS 11/04 completed Not Available Not Available Not Available cefaclor 250 mg capsule Take 3 capsules twice a day by oral route. 04/23 completed Not Available Not Available Not Available tamsulosin 0.4 mg capsule active Not Available Not Available Not Available amitriptyl ine 10 mg tablet TAKE 1 TABLET AT BEDTIME active Not Available Not Available No t Available oseltamivi r 75 mg capsule TAKE 1 CAPSULE BY MOUTH TWICE DAILY FOR 5 DAYS 01/08 completed Not Available Not Available Not Available clotrimazo le-betamet hasone 1 %-0.05 % topical cream APPLY TOPICALLY TO THE AFFECTED AND SURROUNDI NG AREAS TWICE DAILY IN THE MORNING AND IN THE EVENING FOR 2 WEEKS active Not Available Not Available No t Available olopatadin e 0.1 % eye drops Instill 1 drop every 8 hours by ophthalmi c route as directed. active Not Available Not Available No t Available lisinopril 10 mg tablet TAKE 1 TABLET DAILY 06/21 completed Not Available Not Available Not Available polymyxin B sulfate 10,000 unit-trime thoprim 1 mg/mL eye drops 01/05 completed Not Available Not Available Not Available betamethas one dipropiona te 0.05 % topical cream APPLY A THIN LAYER TO THE AFFECTED AREA(S) BY TOPICAL ROUTE ONCE DAILY as needed active Not Available Not Available No t Available docusate sodium 100 mg capsule TAKE 1 CAPSULE BY MOUTH ONCE DAILY NEEDED 11/04 completed Not Available Not Available Not Available gabapentin 300 mg capsule TAKE 1 CAPSULE BY MOUTH THREE TIMES DAILY 06/21 completed Not Available Not Available Not Available omeprazole 20 mg capsule,de layed release Take 1 capsule every day by oral route for 30 days. 2021 active 2 daily Not Available Not Available Not Available testostero ne enanthate 200 mg/mL intramuscu lar oil INJECT 0.7ML INTRAMUSC ULARLY ONCE A WEEK; DISCARD 28 DAYS AFTERFIRS T USE active Not Available Not Available No t Available hydroxychl oroquine 200 mg tablet TAKE 1 TABLET TWICE A DAY active Not Available Not Available No t Available testostero ne cypionate 200 mg/mL intramuscu lar oil ADMINISTE R 0.7 ML IN THE MUSCLE 1 TIME A WEEK DIRECTED 11/04 completed Not Available Not Available Not Available ibuprofen 600 mg tablet 04/23 completed Not Available Not Available Not Available cefuroxime axetil 500 mg tablet Take 2 tablets twice a day by oral route as directed for 30 days. 09/11 completed Not Available Not Available Not Available scopolamin e 1 mg over 3 days transderma l patch APPLY 1 PATCH TOPICALLY TO THE SKIN EVERY 72 HOURS NEEDED FOR NAUSEA 11/04 completed Not Available Not Available Not Available methylpred nisolone 4 mg tablets in a dose pack 11/02 completed Not Available Not Available Not Available ketoconazo le 2 % topical cream Apply 1 applicati on as needed by topical route for 15 days. 01/05 completed Not Available Not Available Not Available cefdinir 300 mg capsule TAKE 1 CAPSULE ONCE DAILY active Not Available Not Available No t Available fluticason e propionate 50 mcg/actuat ion nasal spray,susp ension INSTILL 2 SPRAYS INTO EACH NOSTRIL FOR 30 DAYS 04/08 completed Not Available Not Available Not Available amoxicilli n 875 mg-potassi um clavulanat e 125 mg tablet 05/09 completed Not Available Not Available Not Available oxycodone 5 mg tablet TAKE 1 TABLET BY MOUTH EVERY 4 HOURS NEEDED 01/08 completed Not Available Not Available Not Available neomycin-p olymyxin-h ydrocort 3.5 mg-10,000 unit/mL-1 % ear drops,susp active Not Available Not Available N ot Available prednisolo ne sodium phosphate 5 mg base/5 mL (6.7 mg/5 mL) oral soln 01/05 completed Not Available Not Available Not Available Multivitam in 50 Plus tablet Take 1 tablet every day by oral route. active Not Available Not Available No t Available alfuzosin ER 10 mg tablet,ext ended release 24 hr TAKE 1 TABLET DAILY active Not Available Not Available No t Available chlorhexid ine gluconate 0.12 % mouthwash 01/05 completed Not Available Not Available Not Available BD Integra Syringe 3 mL 25 gauge x 1 USE TO INJECT TESTOSTER ONE WEEKLY DIRECTED BY MEDICAL DOCTOR active Not Available Not Available No t Available omeprazole 20 mg tablet,del ayed release TAKE 1 TABLET BY MOUTH ONCE DAILY 05/03 completed Not Available Not Available Not Available Probiotic and Acidophilu s 100 billion per day orally 11/04 completed Not Available Not Available Not Available Vicodin ES 7.5 mg-300 mg tablet active Not Available Not Available No t Available marijuana (cannabis) inhalatio n as needed 09/11 completed Not Available Not Available Not Available Afluria [id number] (PF) 45 mcg(15 mcg x 3)/0.5 mL intramuscu lar syringe 09/11 completed Not Available Not Available Not Available Fish Oil 1,000 mg (120 mg-180 mg) capsule Take 1 capsule every day by oral route. active Not Available Not Available No t Available Flucelvax Quad [id number] (PF) 60 mcg (15 mcg x 4)/0.5 mL IM syringe 10/04 completed Not Available Not Available Not Available cholecalci ferol (vitamin D3) 50 mcg (2,000 unit) chewable tablet Take 1 tablet every day by oral route. active Not Available Not Available No t Available Shingrix (PF) 50 mcg/0.5 mL intramuscu lar suspension , kit 01/05 completed Not Available Not Available Not Available Fluzone Quad (PF ) 60 mcg(15 mcgx4)/0.5 mL intramuscu lar syringe 05/09 completed Not Available Not Available Not Available turmeric 1 capsule daily active Not Available Not Available No t Available B Complex 1 (with folic acid) 0.4 mg tablet Take 1 tablet every day by oral route. active Not Available Not Available No t Available Flowflex COVID-19 Antigen Home Test kit 06/17 completed Not Available Not Available Not Available Paxlovid 300 mg (150 mg x 2)-100 mg tablets in a dose pack Take 3 tablets twice a day by oral route as directed for 5 days. 07/26 completed Not Available Not Available Not Available Vitals Date Recorded Body height Body mass index (BMI) Body weight Heart rate Oxygen saturation Oxygen saturation in Arterial blood by Pulse oximetry Body temperature Systolic And Diastolic Provider Name and Address Organization Details Last Updated DateTime 5 167.64 cm 32.3 kg/m2 72479.4 7 g 108 /min 95 % 95 % 97.6 [degF] 100/70 mm[Hg] [facility] 10:03:26 Date Recorded Body height Body mass index (BMI) Body weight Heart rate Oxygen saturation Oxygen saturation in Arterial blood by Pulse oximetry Body temperature Systolic And Diastolic Systolic And Diastolic Provider Name and Address Organization Details Last Updated DateTime 5 167.64 cm 32.1 kg/m2 67851.8 8 g 100 /min 97 % 97 % 98.2 [degF] 141/97 mm[Hg] 132/90 mm[Hg] [facility] 13:21:56 Date Recorded Systolic And Diastolic Provider Name and Address Organization Details Last Updated DateTime 04/12/2025 152/86 mm[Hg] Kavon Levine MD [address] [address], [place], [address], [facility] 04/12/2025 10:43:21 Date Recorded Body height Oxygen saturation Oxygen saturation in Arterial blood by Pulse oximetry Heart rate Body temperature Systolic And Diastolic Systolic And Diastolic Provider Name and Address Organization Details Last Updated DateTime 5 167.64 cm 98 % 98 % 102 /min 97.5 [degF] 158/82 mm[Hg] 161/85 mm[Hg] Lyndsay Mccauley MA [facility] 5 10:14:55 Date Recorded Body height Body mass index (BMI) Body weight Heart rate Oxygen saturation Oxygen saturation in Arterial blood by Pulse oximetry Body temperature Systolic And Diastolic Systolic And Diastolic Provider Name and Address Organization Details Last Updated DateTime 5 167.64 cm 31.9 kg/m2 36999.5 g 100 /min 98 % 98 % 98.7 [degF] 147/100 mm[Hg] 132/92 mm[Hg] Alicia Ardon MA [facility] 5 13:12:50 Date Recorded Heart rate Oxygen saturation Oxygen saturation in Arterial blood by Pulse oximetry Body temperature Systolic And Diastolic Provider Name and Address Organization Details Last Updated DateTime 4 98 /min 97 % 97 % 97.6 [degF] 132/89 mm[Hg] Cass Marino MA [facility] 4 10:36:17 Social History Question Answer Notes LastModified by Organizat ion Details LastModified Time Tobacco Smoking Status Never Smoker [place] Cardenas, [facility] 04/18/2015 13:02:45 Do You Have An Advance Directive? Yes HCP/ Nia Wilhelm [email or web address] Information not available 01/23/2022 Is Blood Transfusion Acceptable In An Emergency? Yes Information not available 01/27/2016 What Is Your Level Of Caffeine Consumption? Moderate Decaf Coffee Red Bull - A Few Weekly Information not available 01/08/2025 How Much Tobacco Do You Chew? None Information not available 01/27/2016 What Type Of Diet Are You Following? CARBOHYDRATE Information not available 10/04/2017 Which Illicit Or Recreational Drugs Have You Used? Never Information not available 04/18/2015 Live Alone Or With Others? With Others (Nia), 2 Dog Inna And Melody Information not available 08/25/2022 Do You Take Precautions To Prevent Distracted Driving? Yes Information not available 04/18/2015 How Often Do You Need To Have Someone Help You When You Read Instructions, Pamphlets, Or Other Written Material From Your Doctor Or Pharmacy? Never Information not available 04/18/2015 Have You Served In The ? No Information not available 10/04/2017 What Was The Date Of Your Most Recent Tobacco Screening? 01/08/2025 Information not available 01/08/2025 How Many Children Do You Have? 2 Information not available 04/18/2015 Do You Use Protection During Sex? No Information not available 04/18/2015 Seat Belts Used Routinely Yes [email or web address] Information not available 01/23/2022 Are You Sexually Active? Yes Information not available 04/18/2015 Smoke Alarm In Home Yes [email or web address] Information not available 01/23/2022 At What Age Did You Start Smoking Tobacco? 0 Information not available 09/23/2016 Are You Passively Exposed To Smoke? No Information not available 04/18/2015 How Much Tobacco Do You Smoke? No Information not available 09/23/2016 Do You Use Sunscreen Routinely? Yes Information not available 04/18/2015 How Many Years Have You Smoked Tobacco? 0 Information not available 09/23/2016 Sex: Unknown Functional Status Question Answer Note LastModified by Organizat ion Details LastModified Time Do you use any illicit or recreational drugs? No Information not available 01/08/2025 What is your level of alcohol consumption? 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 YESWOREST Information not available 08/25/2022 Are you able to care for yourself independently? Yes Information not available 04/18/2015 What is your occupation? [employer] Fully Retired from both jobs on 12/21/2024 Information not available 01/08/2025 What is your exercise level? Moderate Information not available 01/27/2016 Mental Status None recorded. Family History Relationship Description Onset Age of this Age Resolved Age Notes LastModified by Organization Details LastModified Time Father Diabetes mellitus [email or web address] Not available 04/23 09:09:47 Father Malignant neoplastic disease lympho ma Not available 01/23/2022 08:17:41 Brother Malignant neoplastic disease thyroi d [email or web address] Not available 01/23/2022 08:17:41 Brother Disorder of thyroid gland [email or web address] Not available 04/23 09:09:47 Maternal Grandmother Dementia [email or web address] Not available 09:09:47 Son Well adult [email or web address] Not avail able 01/23/2022 08:17:41 Mother Dementia 80 [email or web address] Not availab le 08/25/2022 10:07:42 Medical History Condition Response Other N Gout N Kidney Stones N Blood Diseases N Hyperthyroidism N Breast Cancer N Hypothyroidism N Lung Disease N COPD N Depression N Defects or Inherited Disease N Anesthesia Complications N Headaches/Migraines N Varicose Veins N Anxiety Disorder N Obesity N Vision or Eye Problems N Arthritis N Head Injury/Concussion N Infertility N Polyps N Congenital Anomalies N Acid Reflux (GERD) Y Cancer N Stroke N ADHD N Endometriosis N High Cholesterol N Liver Disease N Fibromyalgia N Kidney Disease N Heart Problems N Ear or Hearing Problems N Hospitalizations N Thyroid Problems N GI Problems Y Acne N Eating Disorder N Skin Problems N Anemia N Constipation N Bladder Problems Y Mental Illness N Ovarian Cancer N Diabetes N Blood Transfusions N Seizures/Epilepsy N Tuberculosis N AIDS/HIV N Congestive Heart Failure (CHF) N Eczema N Diverticulitis N Abuse/Domestic Violence N Asthma N Allergies N Reflux/GERD N Hepatitis N Pulmonary Embolism N Hypertension N Chicken Pox N Autism Spectrum Disorder (ASD) N Osteoporosis N Immunizations Vaccine Type Date Status Note Provider Nam e and Address Organization Details Recorded Time Influenza, split virus, quadrivalent, preservative 6 completed Not Available [facility] 04/01/2023 10:02:27 Influenza, split virus, quadrivalent, preservative 7 completed Not Available [facility] 04/01/2023 10:02:27 zoster recombinant 9 completed [place] Cardenas [facility] 01/05/2022 09:09:29 COVID-19, mRNA, LNP-S, PF, 100 mcg/0.5mL dose or 50 mcg/0.25mL dose 1 completed [facility] Cardenas [facility] 01/05/2022 09:09:29 zoster recombinant 9 [place] [facility] 09:09:29 [facility] 8 [facility] 09:09:29 Influenza, split virus, trivalent, preservative 3 completed [facility] Cardenas [facility] 01/05/2022 09:09:29 COVID-19, mRNA, LNP-S, PF, 100 mcg/0.5mL dose or 50 mcg/0.25mL dose 1 completed [facility] Cardenas [facility] 01/05/2022 09:09:29 Influenza, split virus, quadrivalent, preservative 5 completed [facility] Cardenas [facility] 01/05/2022 09:09:29 COVID-19, mRNA, LNP-S, PF, 100 mcg/0.5mL dose or 50 mcg/0.25mL dose 1 completed [facility] Cardenas [facility] 01/05/2022 09:09:29 MMR 8 completed [place] therese [facility] 01/05/2022 09:09:29 Influenza, split virus, trivalent, PF 6 completed [facility] Cardenas [facility] 01/05/2022 09:09:29 COVID-19, mRNA, LNP-S, PF, 100 mcg/0.5mL dose or 50 mcg/0.25mL dose 2 completed [facility] Cardenas [facility] 01/05/2022 09:09:29 Influenza, MDCK, quadrivalent, PF 7 completed [facility] Cardenas [facility] 01/05/2022 09:09:29 Influenza, split virus, quadrivalent, PF 8 completed [facility] Carden[facility] 01/05/2022 09:09:29 Influenza, split virus, quadrivalent, PF 1 completed [facility] Cardenas [facility] 01/05/2022 09:09:29 Tdap 5 completed [place] Marie [facility] 06/17/2022 13:32:56 Influenza, split virus, trivalent, PF 4 completed [place] Marie [facility] 11/04/2024 09:54:46 Pneumococcal conjugate PCV20, polysaccharide [id number] conjugate, adjuvant, PF 5 completed Not Available [facility] 06/21/2025 12:47:58 Tdap 5 completed Not Available [facility] 06/21/2025 12:47:58 Past Encounters Encounter ID Performer Location Encounter Start Date Encounter Closed Date Diagnosis/Indication Diagnosis SNOMED-CT Code Diagnosis ICD10 Code Diagnosis IMO Codes Diagnosis Note [id number] Kavon Levine MD Main Office [address] [facility] [address] [place] [address] 04/18/2015 12:54:55 04/18/2015 14:23:27 Adult health examination [id number] Will update immunizati on status and screen based on risk factors. Will track down previous colonoscop y report. Regular dental and ophtho care advised as well as seatbelt and sunscreen use. Distracted driving discussed. Advance directives in place. Body mass index 30+ - obesity 724748678 Panic attack 702008304 Use is reportedly infrequent . Will refill and monitor. Administra tion of diphtheria, pertussis, and tetanus vaccine 883132521 Contact dermatitis 55039425 Suspect this might be the cause, fungal less likely given lack of response to topical antifungal . Call inb/worse. Disorder o f urinary bladder 82169986 Will request urology records for further clarificat ion of diagnosis. Disorder of skin 03237447 Possible BCC, will ask derm for opinion. [id number] Kavon Levine MD Main Office [address] [facility] [address] [place] [address] 01/27/2016 14:45:16 01/27/2016 15:46:43 Panic attack 229982835 F41.0 Use is reportedly infrequent . Will refill and monitor. Upper abdominal pain 831 08838 R10.10 ? if related to HH vs PUD vs pancreatit is. Normal recent imaging works against pancreatit is. Will recheck labs and UGI to look for pathology. Will also try to track down last EGD result. Depending on results may need to f/u with GI or be referred to thoracic surgery. [id number] Kavon Levine MD Main Office [address] [facility] [address] [place] [address] 04/23/2016 08:34:46 04/23/2016 09:32:13 Adult health examination 407548671 Z00.01 Immunizati on status utd will screen based on risk factors. Flu advised in the Fall. Will track down previous colonoscop y report. Regular dental and ophtho care advised as well as seat belt and sunscreen use. Distracted driving discussed. Advance directives in place and updated. Body mass index 30+ - obesity 283173415 Z68.35 Hiatal hernia 87263250 K 44.9 ? if this is the cause of his upper abd/lower chest pain. Gastroesop hageal reflux disease 890033563 K21.9 Will titrate PPI while waiting for GI eval. Pt advised to limit NSAID and caffeine use. Chest wall pain 06406668 6 R07.89 Advance di rective discussed with patient 449247395 Z71.89 [id number] Kavon Levine MD Main Office [address] [facility] [address] [place] [address] 09/11/2016 11:25:02 09/11/2016 12:39:42 Gastroesophageal reflux disease 333688763 K21.9 Will continue current PPI dose but needs further eval for dysphagia. Intermitte nt dysphagia 91302652 R13.19 ? if this is a neurologic issue. Will ask neuro to help evaluate this as well as possibly help with sleep issues. Pain of hip region 60281 002 M25.552 Image to look for OA. If nl will refer to bursal injection. Tremor 93453345 R25.1 Persistent insomnia 1919 36093 G47.09 See if low dose TCA helps with this. May have impact on other neuro issues. Acute sinusitis 39265108 J01.90 Advised to f/u with ENT if nasal steroid doesn't help. [id number] Kwaku Shah MD Main Office [address] [facility] [address] [place] [address] 09/23/2016 10:27:26 09/23/2016 11:43:51 Greater trochanteric pain syndrome 2711995 M70.62 [id number] Kavon Levine MD Main Office [address] [address] [facility] [place] [address] 11/02/2016 10:48:49 11/02/2016 11:49:40 Obstructive sleep apnea syndrome 04823227 G47.33 Being fitted for a mask, has sleep medicine f/u. Gastroesop hageal reflux disease 868649066 K21.9 Will continue current PPI dose but needs further eval for dysphagia. Dysphagia 09460609 R13.1 0 Insomnia 166652559 G47.0 0 Responding well to TCA, will continue treatment. [id number] Kavon Levine MD Main Office [address] [facility] [address] [place] [address] 04/05/2017 15:32:16 04/05/2017 16:17:20 Spasm of back muscles 085249635 M62.830 Refer to PT if not slowly improving. Will need further eval if persistent /worse. Increased liver function 73612659 R94.5 Persistent despite wt loss. Imaging from Aug was unremarkab le. ? if this is medication vs hepatocell ular disease related. Pt would like to see a different GI MD. Obstructiv e sleep apnea syndrome 18343844 G47.33 Will track down sleep study results and neuro notes to help verify issue and plan. [id number] Kavon Levine MD Main Office [address] [facility] [address] [place] [address] 10/04/2017 10:16:09 10/04/2017 11:08:59 Adult health examination 641991152 Z00.00 Immunizati on status utd will screen based on risk factors. Colon cancer screening utd, prostate cancer screening coordinate d via urology. Regular dental and ophtho care advised as well as seat belt and sunscreen use. Distracted driving discussed. Advance directives in place. Insomnia 519974567 G47.0 0 Responding well to TCA, will continue treatment. Obstructiv e sleep apnea syndrome 05692905 G47.33 Tolerating CPAP well. Following with sleep medicine. Thrombocyt openic disorder 132980992 D69.6 Had labs done last week with GI. Presume that CBC was done. Lyme disease 45197662 A6 9.20 Diagnosed and treated by Dr. Aparicio. Body mass index 25-29 - overweight 281604010 E66.3 Z68.25 Increased liver function 38142394 R94.5 Seeing GI for this issue and had labs done last week. Will await reports. Greater tr ochanteric pain syndrome 8858261 M70.62 Mild/impro ving. Will call for injection referral if worse as it has worked well in the past. [id number] Kavon Levine MD Main Office [address] [address] [place] [address] 03/29/2018 10:57:02 03/29/2018 12:49:19 [id number] Kavon Levine MD Main Office [address] [address] [place] [address] 04/08/2018 08:58:11 04/08/2018 09:49:34 Dizziness 525484695 R42 Sounds secondary to dehydratio n, possibly hypoglycem ia, less likely arrythmia. Cardiac etiology unlikely at this time based on negative extensive work up. Advised to call if recurrent tejinder with exertion. Palpitations 74637015 R0 0.2 Would consider holter monitor if recurrent. Adequate hydration, regular meals and avoiding excessive caffeing intake advised. [id number] Kavon Levine MD Main Office [address] [address] [place] [address] 05/09/2019 11:27:24 05/09/2019 12:23:32 Insomnia 848787940 G47.00 Responding well to TCA, will continue treatment. Localized swelling, mass and lump, neck 271172011 R22.1 WIll characteri ze further with u/s. If negative will monitor clinically . Mass of chest wall 95599 4000 R22.2 Suspect arthritic changes. Will see if XR shows anything. Monitor clinically if negative. [id number] Kavon Levine MD Main Office [address] [facility] [address] [place] [address] 01/05/2022 09:03:21 01/05/2022 09:46:20 Insomnia 924523160 G47.00 Responding well to TCA, will continue treatment, but needs f/u for CPAP surveillan ce. Gastroesop hageal reflux disease 661952941 K21.9 Will continue current low PPI dose. No red flag symptoms and due for routine GI f/u on this and colonoscop y. Obstructiv e sleep apnea syndrome 71888936 G47.33 Tolerating CPAP well. Needs new sleep medicine care. Non-alcoho lic fatty liver 870020708 K76.0 Increased liver function 04624098 R94.5 Likely from fatty liver and based on recent labs (02/2021) done by Dr Aparicio has been stable. [id number] Kavon Levine MD [facility] [address] [facility] [address] [place] [address] 01/23/2022 08:17:13 01/23/2022 14:18:51 Persistent cough 801095956 R05.3 Possibly related to thrush/pha ryngeal irritation . Will image to rule out pneumonia. Will treat for oral/esoph ageal thrush and modify regimen if indicated based on CXR and lab results. Advised to alejandro inb/worse. Candidiasis of mouth 797 15092 B37.0 Advised to hold hydroxychl oroquine, amitryptil ine, alfusozin, nystatin and cefdinir while on fluconazol e. [id number] Kavon Levine MD Main Office [address] [facility] [address] [place] [address] 06/17/2022 13:19:40 06/17/2022 14:08:47 Herpes zoster 0379622 B02.9 itchy rash R lateral thigh highly suspicious for zoster - come to find out he had covid ~ 2 wks ago, and had B shoulder luc injxn's recently --- all can lower immune system --- at this time, > 1 wk out - no indication for valtrex, no pain - no indication for gbn --- pt did have shingrix ~ 5 yrs ago --- at this time, rec reassuranc e and prn calamine --- call us if develop PHN [id number] Kavon Levine MD Main Office [address] [facility] [address] [place] [address] 08/25/2022 09:26:46 08/25/2022 10:23:52 Adult health examination 499639614 Z00.00 Immunizati on status utd will screen based on risk factors. Colon cancer screening utd, prostate cancer screening coordinate d via urology. Regular dental and ophtho care advised as well as seat belt and sunscreen use. Distracted driving discussed. Advance directives in place. Benign pro static hyperplasia with outflow obstruction 632445075 N40.1 Followed and managed by Dr. Lyn. Body mass index 30+ - obesity 827308154 Z68.30 E66.9 Gastroesop hageal reflux disease 978880348 K21.9 Will continue current low PPI dose. No red flag symptoms and due for routine GI f/u on this and colonoscop y. Elevated blood-pressure reading without diagnosis of hypertension 395623201 R03.0 High-grade urothelial carcinoma found on urine cytology 460628604 R82.89 Following with urology q 6 months. Hypogonadism 14680967 E2 9.1 Managed and monitored by urology. Obstructiv e sleep apnea syndrome 16847961 G47.33 Sleep study scheduled next week with sleep medicine down the [place]. Thrombocyt openic disorder 064783774 D69.6 Will monitor with urology. Screening for cardiovascular system disease 829482070 Z13.6 Hepatitis C screening 41 7062975 Z11.59 [id number] Kavon Levine MD Main Office [address] [facility] [address] [place] [address] 12/29/2022 09:02:46 12/29/2022 09:43:37 Hypertensive renal disease 69908166 I12.9 Given albuminuri a and intermitte nt elevations will try low dose ACEI and titrate as tolerated to goal BP control. Common/ser ious side effects discussed. Advised to call with any problems and go for labs in 2-3 weeks. Also advised to d/c meloxicam if possible and work on restrictin g Na intake. Albuminuria 404820220 R8 0.9 Spinal narciso nosis in cervical region 67119667 M48.02 This is why he is using NSAID and symptoms are worse. Will update imaging and consult neurosurg of progressio n is noted. Chronic ki dney disease stage 1 899535800 N18.1 [id number] Brent Monterroso MD Main Office [address] [facility] [address] [facility] [place] [address] 03/16/2023 10:42:33 03/16/2023 11:08:27 Peeling of skin 328533936 R23.4 will refill clotrimazo le/ betamethas one, use bid X 7 DAYS ON, 7 DAYS OFF, use moisturize r BID as well- recommend cerave. Will refer to derm. Call/ return for any concerns/ worsening, avoid eye area. [id number] Kavon Levine MD Main Office [address] [facility] [address] [facility] [place] [address] 04/01/2023 10:00:20 04/01/2023 11:00:50 Spinal stenosis in cervical region 09587481 M48.02 Seeing PMR, but no correspond ence received. Will request reports. See if muscle relaxant helps. Hypertensi ve renal disease 16533927 I12.9 Well controlled , continue current regimen. Hypercalcemia 00496916 E 83.52 Working on limiting dietary intake. If persistent may need endocrine eval. Butterfly rash 33822540 R21 related to photosensi tivity or contact from CPAP, will screen for autoimmune disease/in flammation . Chronic ki dney disease stage 1 048851436 N18.1 [id number] Kavon Levine MD Telehealt h [address] [facility] [address] [place] [address] 11/05/2023 10:41:56 11/05/2023 13:53:25 COVID-19 418839408 U07.1 Based on duration of symptoms and risk factors/co morbiditie s pt is a candidate for antiviral therapy. Local pharmacy with availabili ty identified . Common/ser ious potential side effects discussed. Pt advised to call with any problems or if not slowly improving. Current isolation guidelines discussed/ advised. Advised to hold alfuzosin x 7 days. Cough 70822329 R05.9 Symptomati c/supporti ve tx advised. To ED if dyspnea develops. Call inb/worse. Muscle spa sm of cervical muscle of neck 2262086107 04 M62.838 Adequate hydration advised. Acute on chronic issue, will refill previously effective rx. [id number] Brent Monterroso MD Main Office [address] [facility] [address] [place] [address] 07/26/2024 10:30:53 07/26/2024 11:09:16 Bicipital tenosynovitis 94374172 M75.22 Advised ibuprofen 800 mg tid. I will send a referral to [facility] and he will call tomorrow for an appointmen t. Hydrocodon e prn and tizanidine prn. [id number] Kavon Levine MD Main Office [address] [facility] [address] [place] [address] 11/04/2024 09:46:49 11/04/2024 10:39:28 Fever 801587660 R50.9 Significan tly symptomati c from flu A for sure. Will assess for PNA/second sanket infection with CXR. Will cover with abx if infiltrate present. Upper resp iratory tract infection caused by Influenza A virus 3299835469 99167 J09.X2 Cough 59797684 R05.9 Symptomati c/supporti ve tx advised. To ED if dyspnea develops. Call inb/worse. Muscle pain 90045496 M79 .10 Will see if short steroid taper helps mitigate inflammato ry symptoms as NSAIDS have been in effective. [id number] Kavon Levine MD Main Office [address] [facility] [address] [place] [address] 01/08/2025 12:54:34 01/08/2025 14:21:27 Adult health examination 366956897 Z00.00 Immunizati on status utd will screen based on risk factors. Colon cancer screening utd, prostate cancer screening coordinate d via urology. Regular dental and ophtho care advised as well as seat belt and sunscreen use. Distracted driving discussed. Advance directives in place. Benign pro static hyperplasia with outflow obstruction 524460561 N40.1 Followed and managed by Dr. Lyn. Body mass index 30+ - obesity 729165813 E66.9 Z68.32 Gastroesop hageal reflux disease 127709400 K21.9 Will continue current low PPI dose. Now with dysphagia that needs further eval. If abnl or symptoms persist we mayneed to revisit GI. High-grade urothelial carcinoma found on urine cytology 136428678 R82.89 Following with urology q 6 months. Hypogonadism 31783460 E2 9.1 Managed and monitored by urology. Obstructiv e sleep apnea syndrome 73122996 G47.33 Unable to tolerate CPAP. Thrombocyt openic disorder 878612968 D69.6 Will monitor. Screening for cardiovascular system disease 969394036 Z13.6 Administra tion of pneumococcal vaccine 11734340 Z23 Requires d iphtheria, tetanus and pertussis vaccination 074379672 Z23 268409 Intermitte nt palpitations 450464424 R00.2 94848506 With untreated EVELYN and obesity had risk for afib. With nl ECG will monitor symptoms. Essential hypertension 32418493 I10 48100 Fair control, continue lisinopril . Esophageal dysphagia 408 82277 R13.19 8211 Screen for stricture. Allergic conjunctivitis of bilateral eyes 6579591872 14685 H10.13 [id number] Call inb/worse. [id number] Kavon Levine MD Main Office [address] [place] [address] 04/12/2025 10:00:59 04/12/2025 10:51:09 Bilateral ulnar nerve disorder 6313857548 1168555 G56.23 61053133 Having EMG done in June 13 Stricture of esophagus 03564138 K22.2 31528 Scheduled with GI for 04/18. Essential hypertension 40800624 I10 85887 Took lisinopril just before today's visit. Titrate dose if >130/90 at f/u. Body mass index 30+ - obesity 850431293 E66.9 Z68.32 Carries weight related comorbidit ies. Will try nutritiona l counseling . If unsuccessf ul and ins covers he will be a candidate for GLP1 agonist therapy. Enzyme lev el - finding 664037315 R74.01 [id number] Secondary to fatty liver disease seen on liver u/s in January. Obstructiv e sleep apnea syndrome 32152334 G47.33 Unable to tolerate CPAP. Non-alcoho lic fatty liver 318434477 K76.0 Assess risk factor control. [id number] Kavon Leivne MD Main Office [address] [facility] [address] [facility] [place] [address] 06/21/2025 12:46:49 06/21/2025 13:34:11 Body mass index 30+ - obesity 265186490 E66.9 Z68.32 Carries weight related comorbidit ies. Will try nutritiona l counseling . If unsuccessf ul and ins covers he will be a candidate for GLP1 agonist therapy. Esophageal dysphagia 408 79408 R13.19 8211 Resolved post dilation. On high dose PPI. Bilateral ulnar nerve disorder 2768900763 5681624 G56.23 [id number] Has appt with Dr. Manuel next week Hypertensi ve renal disease 01968399 I12.9 Well controlled , continue current regimen. Obstructiv e sleep apnea syndrome 24091100 G47.33 Unable to tolerate CPAP. Health Concerns Section Related Observation LastModified by Organization Detai ls LastModified Time None Recorded Concern Status LastModified by Organization Details LastModified Time None Recorded Advance Directives Directive Y: HCP/ Nia Wilhelm Payers Insurance Date Sequence Insurance Name Policy Number Policy Vargas Covered Member ID Vargas Member ID Guarantor Name 06/21/2025 1 [place] - [facility] [id number] Fermin Wilhelm [id number] Fermin Wilhelm Notes Date Note Type Note Provider Name and Address Organization Details Recorded Time 4 text/html ROS as noted in the HPI He fell when reaching for something and into some furniture landing on his left shoulder 3 days ago. He has pain in his left shoulder and has trouble with ROM especially reaching behind his back and lifting his arm above his shoulder. He denies any radiation of the pain and denies any arm weakness. He has taken OTC ibuprofen 800 mg twice a day with minimal help. He had some tizanidine which helped but he ran out. He has been seen by [facility] and also by [facility] and has been getting injections in his shoulder for chronic pain the last one being June (last month). Brent Monterroso MD [address] [address], [place], [address], [facility] 07/26/2024 12:16:32 5 text/html Upper Respiratory SymptomsReported by PatientUpper Respiratory SymptomsFor quality, patient reportsproductive cough. For context, patient reportssick contactbut reportsno foreign travelandnon-smoker. For associated symptoms, patient reportsshortness of breathandwheezing. For location, patient reportsheadandchest. For severity, patient reportsmoderate.Symptoms started just about 2 days ago. CoughReported by PatientHPIFor quality, patient reportsharsh. For severity, patient reportsworseningandpain with coughbut reportsmoderate. Kavon Levine MD [address] [address], [place], [address], [facility] 11/23/2024 07:20:06 5 text/html Generic HPI TemplateReported by PatientHere for a physical. Feeling great lately. Seeing dentist and ophtho regularly. Kavon Levine MD [address] [address], [place], [address], [facility] 01/08/2025 14:06:18 5 text/html Hypertension F/UReported by PatientHPIFor lifestyle, patient reportsnot exercising regularlyandhigh salt intake. For associated symptoms, patient reportsno dizziness,no lightheadedness,no chest pain,no shortness of breath, andno palpitations. For medications, patient reportstaking medications as directedandno side effects from medication. GERD RefluxReported by PatientHPIFor symptoms, patient reportsdifficulty swallowing (dysphagia)andpain swallowing (odynophagia). For quality, patient reportsburning. For severity, patient reportsworsening. For associated symptoms, patient reportsfood getting stuckbut reportsno frequent coughing. For duration, patient reportspresent <1 month. For context, patient reportsnon-smoker,no drug/alcohol abuse,no drug alcohol withdrawal, andnot related to food/drink.Barium swallow in March 2025 showed moderate distal stricture and dysmotility ObesityReported by PatientHPIFor diagnosis summary, patient reportsadditional diagnosis: __. Kavon Levine MD [address] [address], [place], [address], [facility] 05/16/2025 22:12:17 5 text/html Musculoskeletal PainReported by PatientHPIFor location, patient reportsbilateral elbow.EMG confirmed b/l ulnar neuropathy. Hypertension F/UReported by PatientHPIFor lifestyle, patient reportsnot exercising regularlyandhigh salt intake. For associated symptoms, patient reportsno dizziness,no lightheadedness,no chest pain,no shortness of breath,no palpitations, andno edema. For medications, patient reportstaking medications as directedandno side effects from medication.Tolerating lisinopril well, no follow up labs done yet. GERD RefluxReported by PatientHPIFor symptoms, patient reportsasymptomatic,no difficulty swallowing,no pain swallowing, andno postprandial pain. For duration, patient reportspresent <1 month. For context, patient reportsnon-smoker,no drug/alcohol abuse,no drug alcohol withdrawal, andnot related to food/drink. For associated symptoms, patient reportsno frequent coughing.EGD with dilation done since last visit with symptom resolution. ObesityReported by PatientHPIFor diagnosis summary, patient reportsadditional diagnosis: obesity. For context, patient reportsno inhaled steroidsandno oral steroids. For associated symptoms, patient reportsno depressionandno hypothyroidism. For co-morbidities, patient reportsno new co-morbidities since last visit. For lifestyle changes, patient reportsfew constitutional symptoms related to diagnosis,no changes in living situation, andexercising more. For medication education, patient reportsunderstands potential side effects,understands administration, andunderstands role of diet as primary therapy.Has been working with senior software systems engineer at [facility]. Kavon Levine MD [address] [facility] [address], [place], [address], [facility] 06/21/2025 13:32:35
--- OUTSIDE RECORDS SUMMARY | 2025-06-27 22:01 | XMS_ITS | Clinical Summary ---
Author Organization [facility] Address [address] [place] [address] Care Team Providers Care Vendor Management Associate Name Role Phone Kavon Maldonado MD Primary [...] With food or milk. Active nystatin (MYCOSTATIN) 952056 units tablet Take 1 tablet by mouth [...] of 2) 1981 Colonoscopy 2007 RSV Vaccine 50 years and old er and Patients (1 - Risk 50-74 years 1-dose series) 2012 Influenza Vaccine 04/06/2025 Hepatitis B Vaccines Aged Out No long er eligible based on patient's age to complete this topic Insurance [employer] [place] OUT OF [place] - PPO Advance Directives * Full Code (Latest Code Status on File) Date Activated Date Inactivated Comments 03/27/2018 3:50 PM Care Teams Vendor Management Associate Relationship Specialty Start Date End Date Kavon Maldonado MD [address] [address] PCP - General 03/27/18
--- OUTSIDE RECORDS SUMMARY | 2025-06-27 22:01 | XMS_ITS | Patient Health Record ---
Author Organization [facility] Address [address] [facility] [address] [place] [address] Care Team Providers Care Maintenance Engineer Oil [employer] Name Role Phone Erica MAJANO, Kavon Primary Care Provider Unavail able Anant Worthy Unavailable [phone] Allergies Allergen (clinical drug ingredient) Drug/Non Drug Allergy documented on EMR Reaction Allergy Type Onset Date Status Substance with sulfonamide structure and antibacterial mechanism of action (substance) Sulfa Antibiotics Unknown Drug Allergy Active meperidine Demerol Unknown Drug Allergy Active Results Component Value Reference Range Notes Pathology (Not yet reviewed by provider) Interpretation: Performing Lab:[facility], [address] [place] [phone] Notes/Report: Reason For Referral Referring Provider First Name Kavon Referring Provider Last Name Erica Referring Provider Speciality Internal M edicine Referred Organization [facility] Referred Provider Anant Worthy Referred Address [address] [place] [address], it[address] [place] [phone], Referred Provider Specialty Gastroentero logy General Notes Sushma Steven 2024 01:32:45 PM >left message for pt to get an hmo blue referral from his pcp for his apptwith Dr. Worthy on [phone] [facility] associates[facility] Dawn 04/19/2025 09:05:17 AM >Spoke with Marlene at [facility] and requested an hmo blue referral for the patient's appt with Dr. Worthy on 05-14-25 Referral Priority Routine Referring Provider First Name Kavon Referring Provider Last Name Erica Referring Provider Speciality Internal M edicine Referred Organization [facility] Referred Provider Anant Worthy Referred Address [address],[facility] [address],[place], [place],[address],[place] Referred Provider Specialty Gastroentero logy General Notes Sushma Steven 2024 09:30:10 AM >DR LEVINE'S OFFICE SENT REFERRA DATED 04-19-25 IT NEEDED TO BE DATED 04-18-25 PLEASE REQUEST ANOTHER REFERRAL FOR DOS 04-18-25 [phone] THE OTHER REFERRAL THEY SENT IS OKAY [...] Once a day Active Cefdinir 300 MG Oral; Duration: 90 Active Anastrozole 1 MG 1/4 tablet Orally twice a week For breast pain from testosterone Active Omeprazole 20 MG 1 capsule Orally Once a day 12/04/2011 Active Amitriptyline HCl 10 MG Oral; Duration: 90 Active Meloxicam 15 MG Oral; Duration: 90 Active Probiotic Active Naltrexone Not-Takin g Multivitamin 1 1 tablet Orally once a day Active Alfuzosin HCl ER 10 MG Oral; Duration: 90 Active Nystatin 872506 UNIT/ML 4 ml Mouth/Throat two-three times a day Active Omeprazole 40 MG 1 capsule 1/2 to 1 hour before morning meal Orally Once a day; Duration: 90 days 05/15/2025 Active Immunizations Vaccine Route Administration Date Status [...] Status Risk Notes Problem Colon cancer screening (969005821) Colon cancer screening (Z12.11) Active confirmed Problem Dysphagia (49544317) Dysphagia (R13.10) Active confirmed Problem Gastroesophageal reflux disease without esophagitis (629246456) Gastroesophageal reflux disease without esophagitis (K21.9) Active confirmed Problem Preprocedural examination (547132590905770) Preprocedural examination (Z01.818) Active confirmed Problem Barium swallow abnormal (216331251) Abnormal barium swallow (R93.3) Active confirmed Problem Generalized abdominal pain (714855025) Abdominal pain, generalized (R10.84) Active confirmed Problem Diverticulosis of colon (286286274) Diverticulosis of colon (K57.30) Active confirmed Vital [...] N/A Encounters Encounter Location Date Provider Diagnosis [facility] Outpatient [address] [place] [id number] 05/14/2025 Anant Worthy [facility] [address] [place] [address] 04/18/2025 Anant Worthy Gastroesophageal ref lux disease without esophagitis K21.9 ; Dysphagia R13.10 ; Abnormal barium swallow R93.3 and Colon cancer screening Z12.11 [facility] [address] [place] [address] 01/10/2025 Anant Worthy [facility] [address] [place] [address] 04/18/2025 Anant Worthy [facility] [address] [place] [phone] 05/15/2025 Anant Worthy Assessments Encounter Date Diagnosis (ICD [...] DILATION OF ESOPH 04/18/2025 LIVER PROFILE 12/04/2011 Pathology 05/14/2025 Future Test Test Name Order Date UPPER GI ENDOSCOPY 01/12/2013 COLONOSCOPY 04/30/2022 Insurance Providers Payer Name Payer Address Payer Phone Subscriber Number Group Number Insured Name Patient Relationship to Insured Coverage Start Date Coverage End Date [facility] [employer] [address] [place] [address] [id number] APARNA ANDRADE Self - patient is the insured Medical (General) History Medical History History ICD Code EGD 12/23/2011-negative for a ny significant esophagitis, Julian's esophagus, nor hiatal hernia; EGD in 2012 was neg. as well- no H.pylori, no celiac disease Fatty liver-liver biopsy in 2003- mild inflammation and fibrosis- -neg. liver w/u otherwise GERD Denies SC,DM,CVA,Lung disease,renal dise ase Negative screening colonosco py in 07/2012 except for a hyperplastic polyp and mild diverticulosis Lyme disease- Stage III - s s ID physician in [place]- Dr. Aparicio- on antibiotics--Plaquenil and Cefdinir as of the 04/30 OV Negative screening colonoscopy in 2021 e xcept for a hyperplastic polyp Hypertension Surgical History Surgery Date(Month/Year) Complete right shoulder rev erse replacement in September 2024--Dr. Castle at [facility] C-spine disc surgery 2022 Bilateral shoulder surgeries - 4 on the right, 1 on the left- might be having a right shoulder replacement Cystoscopies- ureteral stent s(removed)- negative w/u for bladder cancer Hemorrhoids Sinus Left elbow
== END 2025-06-27 16:12 | disposition home or self-care (01) ==
LOC: HO.HMGAL 16:11
PROVIDERS: PCP Pediatrics; Visit Provider Registered Nurse Emergency
DX: J30.89 Other allergic rhinitis (principal)
CPT/HCPCS: 95117; 95165

== ENCOUNTER 2025-07-25 14:22 | Outpatient (AMB) | payer BC, SELFPAY ==
--- OUTSIDE RECORDS SUMMARY | 2025-05-14 07:40 | XMS_ITS ---
Author Organization [facility] Address [address] [place] [phone] Care Team Providers Care Photovoltaic Solar Cell Designer Name Role Phone Erica MAJANO, Kavon Primary Care Provider Anant Arnold [phone] REASON FOR VISIT dysphagia,gerd,abn barium swallow Encounters Encounter Location Date Provider [place] [facility] [place] [address] [place] [phone] 05/14/2025 Anant Worthy Plan Of Treatment No Information Progress Notes * APARNA ANDRADEDOB:1960 (65 yo M)Acc No.[id number]:05/14/2025 EGD/MAC Patient: APARNA BONILLA Provider: Cynthia Worthy MD :1960 A ge:64 Y S ex:Male Date:05/14/2025 Address:[address] [place], [place] [phone] Pcp:Kavon Maldonado MD Subjective: * Chief Complaints: [...] 05/14/2025 Generated for Shayy toussaint/Tad/eTransmitting on: 1 09/25/2024 02:52 AM EST
--- OUTSIDE RECORDS SUMMARY | 2025-07-26 02:51 | XMS_ITS | Clinical Summary ---
Author Organization [facility] Address [address] [place] [address] Care Team Providers Care Aviation Neuropsychologist Name Role Phone Kavon Maldonado MD Primary Care Provider + [phone] Allergies Active Allergy Reactions Criticality Noted Date [...] age to complete this topic Care Teams Aviation Neuropsychologist Relationship Specialty Start Date End Date Kavon Maldonado MD [address] [place] [phone] PCP - General Internal Medicine 07/07/18
--- OUTSIDE RECORDS SUMMARY | 2025-07-26 02:52 | XMS_ITS | Clinical Summary ---
Author Organization [facility] Address [address] [place] [address] Care Team Providers Care Registered Public Health Nurse Name Role Phone Kavon Maldonado MD Primary [...] With food or milk. Active nystatin (MYCOSTATIN) 014125 units tablet Take 1 tablet by mouth [...] age to complete this topic Insurance [employer] [place] OUT OF STATE - PPO Advance Directives * Full Code (Latest Code Status on File) Date Activated Date Inactivated Comments 03/27/2018 3:50 PM Care Teams Registered Public Health Nurse Relationship Specialty Start Date End Date Kavon Maldonado MD [address] [address] PCP - General 03/27/18
--- OUTSIDE RECORDS SUMMARY | 2025-07-26 02:52 | XMS_ITS | Patient Health Record ---
Author Organization [facility] Address [address] [facility] [address] [place] [address] Care Team Providers Care Fiberglass Fabricator Name Role Phone Erica MAJANO, Kavon Primary Care Provider Unavail able Anant Worthy Unavailable [phone] Allergies Allergen (clinical drug ingredient) Drug/Non Drug Allergy documented on EMR Reaction Allergy Type Onset Date Status meperidine Demerol Unknown Drug Allergy Active Substance with sulfonamide structure and antibacterial mechanism of action (substance) Sulfa Antibiotics Unknown Drug Allergy Active Results Component Value Reference Range Notes Pathology (Not yet reviewed by provider) Interpretation: Performing Lab:[facility], [address] [place] [phone] Notes/Report: Reason For Referral Referring Provider First Name Kavon Referring Provider Last Name Erica Referring Provider Speciality Internal M edicine Referred Organization [facility] Referred Provider Anant Worthy Referred Address [address] [place] [address],[facility] [address] [place] [phone],[place] Referred Provider Specialty Gastroentero logy General Notes Sushma Steven 2024 09:30:10 AM >DR LEVINE'S OFFICE SENT REFERRA DATED 04-19-25 IT NEEDED TO BE DATED 04-18-25 PLEASE REQUEST ANOTHER REFERRAL FOR DOS 04-18-25 [phone] THE OTHER REFERRAL THEY SENT IS OKAY FOR THE UPCOMING PROCEDURE. Referral Priority Routine Referring Provider First Name Kavon Referring Provider Last Name Erica Referring Provider Speciality Internal M edicine Referred Organization [facility] Referred Provider Anant Worthy Referred Address [address] [facility],[address],[place], [place],[address],[place] Referred Provider Specialty Gastroentero logy General Notes Sushma Steven 2024 01:32:45 PM >left message for pt to get an hmo blue referral from his pcp for his apptwith Dr. [place] [phone] [facility], Sushma Steven 04/19/2025 09:05:17 AM >Spoke with aMrlene at [facility] and requested an hmo blue referral for the patient's appt with Dr. Worthy on 05-14-25 Referral Priority Routine Medications Medication SIG (Take, Route, Frequency, Duration) Notes Start Date End Date Status Fish Oil 1000 MG Capsule 1 capsule Orally Once a day Active Plaquenil 200 MG Tablet 1 tablet with food or milk Orally Once or twice a day Lyme's disease Active Testosterone Cypionate 200 MG/ML Solution 1 ml Intramuscular Active Vitamin B12 1000 MCG Tablet Extended Release 1 tablet Orally Once a day Active Cefdinir 300 MG Capsule Oral; Duration: 90 Active Anastrozole 1 MG Tablet 1/4 tablet Orally twice a week For breast pain from testosterone Active Omeprazole 20 MG Capsule Delayed Release 1 capsule Orally Once a day 12/04/2011 Active Amitriptyline HCl 10 MG Tablet Oral; Duration: 90 Active Meloxicam 15 MG Tablet Oral; Duration: 90 Active Probiotic Active Naltrexone Not-Takin g/ PRN Multivitamin 1 tablet 1 tablet Orally once a day Active Alfuzosin HCl ER 10 MG Tablet Extended Release 24 Hour Oral; Duration: 90 Active Nystatin 682343 UNIT/ML Suspension 4 ml Mouth/Throat two-three times a day Active Omeprazole 40 MG Capsule Delayed Release 1 capsule 1/2 to 1 hour before morning meal Orally Once a day; Duration: 90 days 05/15/2025 Active Immunizations Vaccine Route Administration Date Status Comme nts Influenza Unknown 05/07/2021 Administered Social History Social History Drug/Alcohol: Social Info Question Answer Notes AUDIT-C (Standard) Did you have a drink containing alcohol in the past year? Yes How often did you have a drink containing alcohol in the past year? 2 to 3 times a week (3 points) How many drinks did you have on a typical day when you were drinking in the past year? 1 or 2 drinks (0 point) How often did you have six or more drinks on one occasion in the past year? 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 alcohol Nonsmoker, occ. alcohol Nonsmoker, occ. alcohol Nonsmoker, occ. alcohol Nonsmoker, occ. alcohol Nonsmoker, occ. alcohol Nonsmoker, occ. alcohol Problems Problem Type SNOMED Code ICD Code Onset Dates Problem Status W/U Status Risk Notes Problem Colon cancer screening (025541425) Colon cancer screening (Z12.11) Active confirmed Problem Dysphagia (39034166) Dysphagia (R13.10) Active confirmed Problem Gastroesophageal reflux disease without esophagitis (263008503) Gastroesophageal reflux disease without esophagitis (K21.9) Active confirmed Problem Preprocedural examination (661856016069762) Preprocedural examination (Z01.818) Active confirmed Problem Barium swallow abnormal (631554009) Abnormal barium swallow (R93.3) Active confirmed Problem Generalized abdominal pain (776748545) Abdominal pain, generalized (R10.84) Active confirmed Problem Diverticulosis of colon (125613347) Diverticulosis of colon (K57.30) Active confirmed Vital [...] N/A Encounters Encounter Location Date Provider Diagnosis [facility] [address] [place] [phone] 05/14/2025 Anant Worthy [facility] [address] [place] [phone] 04/18/2025 Anant Worthy Gastroesophageal ref lux disease without esophagitis K21.9 ; Dysphagia R13.10 ; Abnormal barium swallow R93.3 and Colon cancer screening Z12.11 [facility] [address] [place] [phone] 01/10/2025 Anant Worthy [facility] [address] [place] [phone] 04/18/2025 Anant Worthy [facility] [address] [place] [address] 05/15/2025 Anant Worthy Assessments Encounter Date Diagnosis [...] full assessment to rule out significant esophagitis, Julina's esophagus, esophageal stricture, and to definitively exclude [...] Insured Coverage Start Date Coverage End Date [facility] [address] [place] [address] [id number] [address] Self - patient is the insured Medical [...] III - s ees ID physician in [place]- Dr. Aparicio- on antibiotics--Plaquenil and Cefdinir as of the 04/30 OV Negative screening colonoscopy in 2021 e xcept for a hyperplastic polyp Hypertension Surgical History Surgery Date(Month/Year) Left elbow Sinus Hemorrhoids Cystoscopies- ureteral stent s(removed)- negative w/u for bladder cancer Bilateral shoulder surgeries - 4 on the right, 1 on the left- might be having a right shoulder replacement C-spine disc surgery 2022 Complete right shoulder rev erse replacement in September 2024--Dr. Castle at [facility]
--- OUTSIDE RECORDS SUMMARY | 2025-07-26 02:52 | XMS_ITS | Data Portability ---
Author Organization [facility] Mehdi Umana AONE Hardin Address [address] [place] [address] Care Team Providers Care Ui Software Engineer Name Role Phone CASTROKINGNEFTALICLIFFORD Primary Care Provider [...] view 2023 024 [email or web address] [facility], [address], [place], [address], 4 11:04:55 XR, shoulder, 2 or more view 2022 023 [facility], [address], [place], [address], 3 11:29:20 Medication Orders lidocaine (PF) 10 mg/mL (1 %) injection solution 2023 024 [email or web address] Not available 4 12:28:58 triamcinolo ne acetonide 40 mg/mL suspension for injection 2023 024 [email or web address] Not available 4 12:28:58 lidocaine (PF) 10 mg/mL (1 %) injection solution 2023 024 [email or web address] [facility]885, [address] [place] [address], [id number], 4 11:04:55 triamcinolo ne acetonide 40 mg/mL suspension for injection 2023 024 [email or web address] [facility]99232, [address] [place], [place], [id number], 4 11:04:55 Kenalog 40 mg/mL suspension for injection [address] [facility]51158, [address] [place] [address], [id number], 4 09:51:42 lidocaine (PF) 10 mg/mL (1 %) injection solution [address] [facility]28140, [address] [place] [address], [id number], 4 09:51:42 Kenalog 40 mg/mL suspension for injection [address] [facility]98010, [address] [place] [address], [id number], 4 09:51:42 lidocaine (PF) 10 mg/mL (1 %) injection solution [address] [facility]55968, [address] [place] [address], [id number], 4 09:51:42 Kenalog 40 mg/mL suspension for injection 2022 023 [facility]77055, [address] [place] [address], [id number], 3 09:43:56 Marcaine (PF) 0.5 % (5 mg/mL) injection solution [email or web address] [facility]67149, [address] [place] [address], [id number], 3 09:43:56 lidocaine (PF) 20 mg/mL (2 %) injection solution [address] [facility]63842, [address] [place] [address], [id number], 3 09:43:56 Kenalog 40 mg/mL suspension for injection [address] [facility] #89687, [address] [place] [address], [id number], 3 09:43:56 Marcaine (PF) 0.5 % (5 mg/mL) injection solution [address] [facility]31291, [address] [place] [address], [id number], 3 09:43:56 lidocaine (PF) 100 mg/5 mL (2 %) injection syringe [address] [facility] #92830, [address] [place] [address], [id number], 3 09:43:56 Kenalog 40 mg/mL suspension for injection [address] [facility]77950, [address] [place] [address], [id number], 3 09:18:07 lidocaine (PF) 10 mg/mL (1 %) injection solution [address] [facility]93206, [address] [place] [address], [id number], 3 09:18:11 bupivacaine (PF) 0.5 % (5 mg/mL) injection solution [address] [facility]05185, [address] [place], [place], [id number], 09:18:19 Patient TargetsNo targets recorded. Patient Instructions Encounter Date Encounter Id Patient Instructions Last Modified By Organization Details Last Modified Time 05/05/2023 [id number] You have been provided with a cortisone [...] bony abnormality. Not available 05/06/2023 07:10:06 08/05/2023 [id number] You have been provided with a cortisone [...] portal EVIE. Not available 08/05/2023 12:46:18 11/18/2023 [id number] You have been provided with a cortisone [...] portal EVIE. Not available 11/18/2023 09:46:35 03/02/2024 [id number] You have been provided with a cortisone [...] humeral head. Not available 03/02/2024 11:52:02 06/15/2024 [id number] You have been provided with a cortisone [...] Time Chronic pain of right upper limb 51333597754 684565 Active 2018 Chronic right shoulder pain Not Available [facility] 5 00:14:22 Inflammat ion of joint of right shoulder region Active 2018 Arthritis of right shoulder region Not Available [facility] 5 00:14:23 Disorder of shoulder 793624592 Active 2018 Shoulder impingeme nt, right Not Available [facility] 5 00:14:23 Coracoid impingeme nt 754845394 Active 2020 Coracoid impingeme nt of right shoulder Coracoid impingeme nt of left shoulder Not Available [facility] 5 00:14:23 Calcific tendiniti s of left shoulder 73216110820 9108 Active 2022 ZACHARIAH YI PA-C [address] [facility] [address], [place], [address] , [place] [facility] 3 13:37:05 Osteoarth ritis of left glenohume ral joint 39192564064 08460 Active 2022 ZACHARIAH YI PA-C [address], [place], [address] , [place] [facility] 3 13:37:11 Pain of left shoulder joint 41689332320 432603 Active 2022 ZACHARIAH YI PA-C [address], [place], [place], [address] , [place] [facility] 3 09:04:04 Osteoarth ritis of right glenohume ral joint 31002711538 35247 Active 2023 ZACHARIAH YI PA-C [address], [place], [address] , [place] [facility] 4 09:46:37 Problem Notes None recorded. Procedures Surgical History Date Name Laterality Status Provider Name and Address Organization Details Recorded Time 06/15/20 24 LES Subacromial Shoulder Inj completed Morelia Hernandez MD [address] [facility], [place], [address], [place] [facility] 06/15/2024 12:24:54 06/15/20 24 LES Shoulder Interarticular Inj completed Morelia Hernandez MD [address] [place] [address], [address], [place] [facility] 06/15/2024 12:24:34 03/02/20 24 LES Shoulder Interarticular Inj completed Morelia Hernandez MD [address] [facility], [place], [address], [place] [facility] 03/02/2024 11:49:55 11/18/19 24 Shoulder Joint/Bursa Asp & Inj completed ZACHARIAH YI PA-C [address] [place] [address], [address], [place] [facility] 11/18/2023 09:46:34 08/05/20 23 Shoulder Joint/Bursa Asp & Inj completed ZACHARIAH YI PA-C [address], [place], [address], [place] [facility] 08/05/2023 12:45:28 05/05/20 23 Shoulder Joint/Bursa Asp & Inj completed ZACHARIAH YI PA-C [address] [facility],[address], [place], [address], [place] [facility] 05/06/2023 07:12:30 04/20/20 23 Shoulder Joint/Bursa Asp & Inj completed ZACHARIAH YI PA-C [address] [facility],[address], [place], [address], [place] [facility] 04/20/2023 09:04:07 01/26/20 23 Shoulder Joint/Bursa Asp & Inj completed ZACHARIAH YI PA-C [address] [facility],[address], [place], [address], [place] [facility] 01/25/2023 08:08:04 procedure on shoulder completed [facility] 04/20/2023 08:44:03 Imaging Results None recorded. Procedure Notes None recorded. Medical Equipment None Reported. Allergies Allergen ID Allergen Name Allergen Category Reaction Reaction Severity Criticality Documentation Date Start Date Code Code System Note Provider Name and Address Organization Details Recorded Time 05731 Demerol medicatio n Not available Not available Not available 08/05/2023 28535 1 [facility] 09:17:25 17513 Substance with sulfonami de structure and antibacte rial mechanism of action (substanc e) medicatio n Not available Not available Not available 08/05/2023 01529 8003 SNOMED Sade saleh, [facility] 3 09:17:42 484640 ciproflox acin medicatio n Not available Not available Not available 05/29/20252013 2551 RxNorm React ion: Other (See Comme nts), sever ity: Unkno wn Not Available [facility] 01:32:09 941290 meperidin e medicatio n Not available Not available Not available 05/29/20252013 6754 RxNorm React ion: Nause a And Vomit ing, sever ity: Unkno wn;Re actio n: Nause a Only, sever ity: Unkno wn;Re actio n: Other (See Comme nts), sever ity: Unkno wn Not Available [facility] 5 01:32:09 Medications Name Sig Start Date [...] cm Laurie Re [place] [facility] 11/18/2023 09:10:45 Date Recorded Body height Provider Name an d Address Organization Details Last Updated DateTime 03/02/2024 167.[address] [facility] 03/02/2024 09:41:54 Date Recorded Body height Provider Name an d Address Organization Details Last Updated DateTime 05/05/2023 167.64 cm Sade [place] [facility] 05/05/2023 09:14:15 Date Recorded Body height Body mass index (BMI) Body weight Provider Name and Address Organization Details Last Updated DateTime 06/15/2024 167.64 cm 29.9 kg/m2 08762.59 g Nuria Raulito [place] [facility] 06/15/2024 09:34:33 Date Recorded Body height Provider Name an d Address Organization Details Last Updated DateTime 08/05/2023 167.64 cm Sade [facility], [facility] 08/05/2023 09:16:10 Social History None recorded. [...] ICD10 Code Diagnosis IMO Codes Diagnosis Note [id number] [facility] [address] [address] 01/25/2023 13:07:27 01/25/2023 13:37:15 Pain of left shoulder joint 8955881310 0662756 M25.512 Calcific t endinitis of left shoulder 0072118972 85688 M75.32 Osteoarthr itis of left glenohumeral joint 6721023583 812791 M19.012 [id number] VEENA VALDEZ [facility] [address] [address] 04/20/2023 08:32:00 04/20/2023 09:01:15 Osteoarthritis of left glenohumeral joint 7950751429 129752 M19.012 Pain of le ft shoulder joint 0432720779 9329943 M25.512 Calcific t endinitis of left shoulder 7853981534 79757 M75.32 [id number] VEENA VALDEZ [facility] [address] [address] 05/05/2023 08:58:23 05/05/2023 09:35:40 Pain of right shoulder joint 2044995592 4993590 M25.511 Osteoarthr itis of left glenohumeral joint 5019759561 314895 M19.012 [id number] VEENA VALDEZ [facility] [address] [address] 08/05/2023 08:52:32 08/05/2023 10:22:54 Calcific tendinitis of left shoulder 0880613348 52232 M75.32 Osteoarthr itis of left glenohumeral joint 9028746160 549889 M19.012 Osteoarthr itis of right glenohumeral joint 1047566771 646435 M19.011 [id number] ZACHARIAH YI PA-C [facility] 299 [facility] [address] [place] [address] 11/18/2023 09:07:38 11/18/2023 09:23:55 Osteoarthritis of left glenohumeral joint 2553803440 158898 M19.012 Pain of ri ght shoulder joint 0813650650 8007523 M25.511 Additional diagnosis detail: Pain, joint, shoulder, right Calcific t endinitis of left shoulder 1203128731 92080 M75.32 Osteoarthr itis of right glenohumeral joint 0150855091 681845 M19.011 [id number] Morelia Hernandez MD [facility] [address] [address] 03/02/2024 09:35:33 03/02/2024 10:19:53 Pain of left shoulder joint 3130648104 1728239 M25.512 Additional diagnosis detail: Pain, joint, shoulder, left Osteoarthr itis of right glenohumeral joint 9786027118 740694 M19.011 M19.012 Additional diagnosis detail: Osteoarthr itis of left glenohumer al joint Calcific t endinitis of left shoulder 4607095904 94727 M75.32 [id number] Morelia Hernandez MD [facility] [address] [address] 06/15/2024 09:31:00 06/15/2024 10:04:56 Osteoarthritis of right glenohumeral joint 5119512440 943977 M19.011 M19.012 Additional diagnosis detail: Osteoarthr itis of left glenohumer al joint Calcific t endinitis of left shoulder 9053911639 01595 M75.32 Health Concerns Section Related Observation LastModified by Organization Detai ls LastModified Time None Recorded Concern Status LastModified by Organization Details LastModified Time None Recorded Advance Directives Directive None Recorded Payers Insurance Date Sequence Insurance Name Policy Number Policy Vargas Covered Member ID Vargas Member ID Guarantor Name 06/15/2024 1 [facility] [id number] Fermin Wilhelm [id number] Fermin Wilhelm Notes Date Note Type [...] acute bony abnormality. ZACHARIAH YI PA-C [address] [facility],[place] [address], [place], [address], [place] [facility] 05/06/2023 07:15:15 08/05/2023 text/html Larry 63-year-old [...] ZACHARIAH YI PA-C [address], [place], [address], [place] [facility] 08/05/2023 12:46:53 11/18/2023 text/html Larry 63-year-old [...] as feasibly possible. ZACHARIAH YI PA-C [address] [address], [place], [address], [place] [facility] 11/18/2023 09:49:15 03/02/2024 text/html ROS as noted in the HPI This is a 63-year-old kkwem-[id number] male who presents with right worse than [...] the right side. Morelia Hernandez MD [address] [address], [place], [address], [facility] - [facility], [facility] 03/02/2024 11:53:35 06/15/2024 text/html ROS as noted in the HPI He follows up for his right shoulder glenohumeral joint arthritis and left shoulder calcific tendinitis, he is status post steroid injections on 03/02/2024. He got pain relief for about 2 months however pain has been recurring recently. He notes pain worse in the right side than the left side. He takes gmeu-kub-kozwmup medication when he has pain. Morelia Hernandez MD [address] [address], [place], [address], [place] [facility] 06/15/2024 12:29:00
--- OUTSIDE RECORDS SUMMARY | 2025-07-26 02:52 | XMS_ITS | Data Portability ---
Author Organization [facility], Main Office Address [address] [facility] [address] [place] [address] Care Team Providers Care Program Lead Name Role Phone KAVON LEVINE Primary Care Provider [phone] MELBA MOORE Showroom Sales Assistant KRYS NAGY [employer] TORRIE LYN Urologist [phone] CAMILLE APARICIO Infectious Disease [phone] GLADYS GALVAN Neurologist HUONG GARCIA Deicer Inspector Electric JACY VILLELA Phys[facility] Re[facility] [phone] ELOY [place] Neurosurgeon LONGS DERMATOLOGY [employer] [phone] BRITTANI RAMIRES Orthopedic Surgeon [phone] Assessment No assessment recorded. Plan of Treatment Reminders Order Date Submit Date Provider Last Modified By Organization Details Last Modified Time Details Appointments FOLLOW UP 2025 10:45A M Kavon Levine MD Not available Not available Not available Lab vitami n B12, serum 2024 025 DEMARCUS [facility] (Centralized Electronic Ordering - All Locations), Patient Can Go To The Location Of Their Choice, [id number] 04/12/2025 10:49:15 CMP, serum or plasma 2024 025 DEMARCUS [facility] (Centralized Electronic Ordering - All Locations), Patient Can Go To The Location Of Their Choice, [id number] 04/12/2025 10:49:16 CBC w/ auto diff 2024 025 DEMARCUS [facility] (Centralized Electronic Ordering - All Locations), Patient Can Go To The Location Of Their Choice, [address] 04/12/2025 10:49:16 TSH, ultra- sensit milla, serum 2024 025 DEMARCUS [facility] (Centralized Electronic Ordering - All Locations), Patient Can Go To The Location Of Their Choice, [address] 01/10/2025 08:12:11 magnes ium, serum or plasma 2024 025 DEMARCUS [facility] (Centralized Electronic Ordering - All Locations), Patient Can Go To The Location Of Their Choice, [address] 01/10/2025 08:12:12 urinal ysis, comple te 2024 025 DEMARCUS [facility], [address], [address], [place], [address], 01/10/2025 08:12:10 CMP, serum or plasma 2024 025 DEMARCUS [facility], [address], [address], [place], [address], 01/10/2025 08:12:09 CBC w/ auto diff 2024 025 DEMARCUS [facility], [address], [address], [place], [address], 01/10/2025 08:12:09 lipid panel, serum 2024 025 DEMARCUS [facility], [address], [address], [place], [address], 01/10/2025 08:12:10 rapid flu (A+B) 2024 025 DEMARCUS In-Office Order, Internal Use Only DO Not Attach Compendium DO Not Attach Compendium, Do Not Delete/merge, [id number] 11/04/2024 10:23:20 Referral nutrit ionist /dieti gerber referr al 2024 025 [email or web address] [employer], [address], [address], [place], [address], 04/12/2025 11:14:19 nutrit ionist /dieti gerber referr al 2024 025 [email or web address] Not available 02/16/2025 11:05:03 Procedures None record ed. Surgeries None record ed. Imaging barium swallo w study - rule out stenos is 2024 025 [facility] (Ultrasound), [address] [place], [address], 03/28/2025 13:27:11 electr ocardi ogram 2024 025 [id number] In-Office Order, Internal Use Only DO Not Attach Compendium DO Not Attach Compendium, Do Not Delete/merge, [id number] 01/08/2025 14:21:28 XR, chest, 2 view - rule out pneumo reji 2024 025 moni [facility], [address] [place], [address], 11/04/2024 17:24:01 Medication Orders amoxic illin 875 mg-pot assium clavul anate 125 mg tablet 2024 025 [facility] #[id number], [address] [place] [address], [id number], 07/23/2025 11:04:01 lisino pril 20 mg tablet [address] [facility], [facility], [place], [address], 06/21/2025 13:27:29 olopat adine 0.1 % eye drops 2024 025 [facility] #53136, [address], [place], [id number], 01/08/2025 13:56:49 benzon atate 200 mg capsul e 2024 025 [facility] #63238, [address], [place], [id number], 01/08/2025 13:10:35 Delsym 12 hour 30 mg/5 mL oral suspen werner,stefany xtende d releas e 2024 025 [facility] #55283, [address] [place] [address], [id number], 04/12/2025 10:16:52 oselta mivir 75 mg capsul e 2024 025 [facility] #89897, [address] [place] [address], [id number], 01/08/2025 13:11:38 predni sone 20 mg tablet 2024 025 [facility] #[id number], [address] [place] [address], [id number], 01/08/2025 13:11:42 Patient TargetsNo targets recorded. Patient Instructions Encounter Date Encounter Id Patient Instructions Last Modified By Organization Details Last Modified Time 11/04/2024 [id number] learning about fever awychowski Not yuli ilable 11/04/2024 10:14:47 cough: care instructions awychowski Not available 11/04/2024 10:37:14 01/08/2025 [id number] sleep apnea: car e instructions awychowski Not available 01/08/2025 13:49:27 thrombocytopenia : care instructions awychowski Not available 01/08/2025 13:49:28 high blood press ure: care instructions awychowski Not available 01/08/2025 13:49:27 learning about h igh blood pressure awychowski Not available 01/08/2025 13:49:28 gastroesophageal reflux disease (GERD): care instructions awychowski Not available 01/08/2025 13:49:27 Starting a Weight-Loss Plan: Care Instructions awychowski Not available 01/08/2025 13:49:27 04/12/2025 [id number] sleep apnea: car e instructions awychowski Not available 04/12/2025 10:49:03 ulnar neuropathy (handlebar palsy): exercises awychowski Not available 04/12/2025 10:49:03 esophageal dilat ion: before your procedure awychowski Not available 04/12/2025 10:49:03 high blood press ure: care instructions awychowski Not available 04/12/2025 10:49:03 learning about h igh blood pressure awychowski Not available 04/12/2025 10:49:03 Metabolic Dysfunction-Associat ed Steatotic Liver Disease (MASLD): Care Instructions awychowski Not available 04/12/2025 10:49:03 body mass index: care instructions awychowski Not available 04/12/2025 10:49:03 learning about healthy weight awychowski Not available 04/12/2025 10:49:03 06/21/2025 [id number] body mass index: care instructions awychowski Not available 06/21/2025 13:27:27 learning about healthy weight awychowski Not available 06/21/2025 13:27:27 07/23/2025 [id number] Chart reviewed, agree with above assessment and plan. awychowski Not available 07/23/2025 16:34:07 Reason for Referral Front Man/dietitian Refer ral for Body mass index 30+ - obesity Referring Physician: Kavon Levine [facility], Encounter Date: 01/08/2025 Front Man/dietitian Refer ral for Body mass index 30+ - obesity Referring Physician: Kavon Levine [facility], Encounter Date: 04/12/2025 Results Created Date Observation Date Name Description Value Unit Range Abnormal Flag Note LastModifiedBy Organization Detail LastModifiedTime 11/05/1911/04/2024 rapid flu (A+B) Flu A positi ve Not Available In-Office Order Internal Use Only DO Not Attach Compendium DO Not Attach Compendium, Do Not Delete/merge, [id number] 11/04/2024 10:03:51 11/05/1911/04/2024 rapid flu (A+B) Flu B negati ve Not Available In-Office Order Internal Use Only DO Not Attach Compendium DO Not Attach Compendium, Do Not Delete/merge, [id number] 11/04/2024 10:03:51 01/10/2001/09/2025 CBC WITH DIFFE RENTI AL/PL ATELE T WBC 4.8 x10e3 /uL 3.4-10 .8 normal Not Available [facility] ([facility]) [address] [place], [address], 01/10/2025 08:12:09 01/10/2001/09/2025 CBC WITH DIFFE RENTI AL/PL ATELE T RBC 4.91 x10e6 /uL 4.14-5 .80 normal Not Available [facility] ([facility]) [address] [place], [address], 01/10/2025 08:12:09 01/10/2001/09/2025 CBC WITH DIFFE RENTI AL/PL ATELE T hemoglobin 15.7 g/dL 13.0-1 7.7 normal Not Available [facility] ([facility]) [address] [place], [address], 01/10/2025 08:12:09 01/10/2001/09/2025 CBC WITH DIFFE RENTI AL/PL ATELE T hematocrit 45.3 % 37.5-5 1.0 normal Not Available [facility] ([facility]) [address] [place], [address], 01/10/2025 08:12:09 01/10/2001/09/2025 CBC WITH DIFFE RENTI AL/PL ATELE T MCV 92 fL 79-97 normal Not Available [facility] ([facility]) [address] [place], [address], 01/10/2025 08:12:09 01/10/20 25 01/09/2025 CBC WITH DIFFE RENTI AL/PL ATELE T MCH 32.0 pg 26.6-3 3.0 normal Not Available [facility] ([facility]) [address] [place], [address], 01/10/2025 08:12:09 01/10/20 25 01/09/2025 CBC WITH DIFFE RENTI AL/PL ATELE T MCHC 34.7 g/dL 31.5-3 5.7 normal Not Available [facility] ([facility]) [address] [place], [address], 01/10/2025 08:12:09 01/10/20 25 01/09/2025 CBC WITH DIFFE RENTI AL/PL ATELE T RDW 14.4 % 11.6-1 5.4 Not Available [facility] ([facility]) [address] [place], [address], 01/10/2025 08:12:09 01/10/20 25 01/09/2025 CBC WITH DIFFE RENTI AL/PL ATELE T platelets 108 x10e3 /uL 150-45 0 below low normal Not Available [facility] ([facility]) [address] [place], [address], 01/10/2025 08:12:09 01/10/20 25 01/09/2025 CBC WITH DIFFE RENTI AL/PL ATELE T neutrophils 62 % not estab. normal Not Available [facility] ([facility]) [address] [place], [address], 01/10/2025 08:12:09 01/10/20 25 01/09/2025 CBC WITH DIFFE RENTI AL/PL ATELE T lymphs 26 % not estab. normal Not Available [facility] ([facility]) [address] [place], [address], 01/10/2025 08:12:09 01/10/20 25 01/09/2025 CBC WITH DIFFE RENTI AL/PL ATELE T monocytes 8 % not estab. normal Not Available [facility] ([facility]) [address] [place], [address], 01/10/2025 08:12:09 01/10/20 25 01/09/2025 CBC WITH DIFFE RENTI AL/PL ATELE T eos 3 % not estab. normal Not Available [facility] ([facility]) [address] [place], [address], 01/10/2025 08:12:09 01/10/20 25 01/09/2025 CBC WITH DIFFE RENTI AL/PL ATELE T basos 1 % not estab. normal Not Available [facility] ([facility]) [address] [facility], [place], [address], 01/10/2025 08:12:09 01/10/20 25 01/09/2025 CBC WITH DIFFE RENTI AL/PL ATELE T immature cells PACKAGER HAND Not Available [facility] ([facility]) [address] [place], [address], 01/10/2025 08:12:09 01/10/2001/09/2025 CBC WITH DIFFE RENTI AL/PL ATELE T neutrophils (absolute) 3.0 x10e3 /uL 1.4-7. 0 normal Not Available [facility] ([facility]) [address] [place], [address], 01/10/2025 08:12:09 01/10/2001/09/2025 CBC WITH DIFFE RENTI AL/PL ATELE T lymphs (absolute) 1.3 x10e3 /uL 0.7-3. 1 normal Not Available [facility] ([facility]) [address] [place], [address], 01/10/2025 08:12:09 01/10/20 25 01/09/2025 CBC WITH DIFFE RENTI AL/PL ATELE T monocytes(ab solute) 0.4 x10e3 /uL 0.1-0. 9 normal Not Available [facility] ([facility]) [address] [facility], [place], [address], 01/10/2025 08:12:09 01/10/20 25 01/09/2025 CBC WITH DIFFE RENTI AL/PL ATELE T eos (absolute) 0.1 x10e3 /uL 0.0-0. 4 normal Not Available [facility] ([facility]) [address] [facility], [place], [address], 01/10/2025 08:12:09 01/10/20 25 01/09/2025 CBC WITH DIFFE RENTI AL/PL ATELE T baso (absolute) 0.0 x10e3 /uL 0.0-0. 2 normal Not Available [facility] ([facility]) [address] [facility], [place], [address], 01/10/2025 08:12:09 01/10/20 25 01/09/2025 CBC WITH DIFFE RENTI AL/PL ATELE T immature granulocytes 0 % not estab. Not Available [facility] ([facility]) [address] [place], [address], 01/10/2025 08:12:09 01/10/20 25 01/09/2025 CBC WITH DIFFE RENTI AL/PL ATELE T immature grans (abs) 0.0 x10e3 /uL 0.0-0. 1 Not Available [facility] ([facility]) [address] [place], [address], 01/10/2025 08:12:09 01/10/20 25 01/09/2025 CBC WITH DIFFE RENTI AL/PL ATELE T NRBC PACKAGER HAND Not Available [facility] ([facility]) [address] [facility], [place], [address], 01/10/2025 08:12:09 01/10/20 25 01/09/2025 CBC WITH DIFFE RENTI AL/PL ATELE T hematology comments: PACKAGER HAND Not Available [facility] ([facility]) [address] [place], [address], 01/10/2025 08:12:09 01/10/20 25 01/10/2025 COMP. METAB OLIC PANEL (14) glucose 129 mg/dL 70-99 above high normal Not Available [facility] ([facility]) [address] [place], [address], 01/10/2025 08:12:09 01/10/20 25 01/10/2025 COMP. METAB OLIC PANEL (14) BUN 15 mg/dL 8-27 normal Not Available [facility] ([facility]) [address] [place], [address], 01/10/2025 08:12:09 01/10/20 25 01/10/2025 COMP. METAB OLIC PANEL (14) creatinine 0.75 mg/dL 0.76-1 .27 below low normal Not Available [facility] ([facility]) [address] [place], [address], 01/10/2025 08:12:09 01/10/20 25 01/10/2025 COMP. METAB OLIC PANEL (14) eGFR 102 mL/mi n/1.7 3 >59 normal Not Available [facility] ([facility]) [address] [place], [address], 01/10/2025 08:12:09 01/10/20 25 01/10/2025 COMP. METAB OLIC PANEL (14) BUN/creatini ne ratio 20 10-24 normal Not Available [facility] ([facility]) [address] [place], [address], 01/10/2025 08:12:09 01/10/20 25 01/10/2025 COMP. METAB OLIC PANEL (14) sodium 144 mmol/ L 134-14 4 normal Not Available [facility] ([facility]) [address] [place], [address], 01/10/2025 08:12:09 01/10/20 25 01/10/2025 COMP. METAB OLIC PANEL (14) potassium 4.3 mmol/ L 3.5-5. 2 normal Not Available [facility] ([facility]) [address] [place], [address], 01/10/2025 08:12:09 01/10/20 25 01/10/2025 COMP. METAB OLIC PANEL (14) chloride 105 mmol/ L 96-106 normal Not Available [facility] ([facility] [address] [place], [address], 01/10/2025 08:12:09 01/10/20 25 01/10/2025 COMP. METAB OLIC PANEL (14) carbon dioxide, total 21 mmol/ L 20-29 normal Not Available [facility] ([facility]) [address] [place], [address], 01/10/2025 08:12:09 01/10/20 25 01/10/2025 COMP. METAB OLIC PANEL (14) calcium 9.9 mg/dL 8.6-10 .2 normal Not Available [facility] ([facility]) [address] [place], [address], 01/10/2025 08:12:09 01/10/20 25 01/10/2025 COMP. METAB OLIC PANEL (14) protein, total 6.7 g/dL 6.0-8. 5 normal Not Available [facility] ([facility]) [address] [place], [address], 01/10/2025 08:12:09 01/10/20 25 01/10/2025 COMP. METAB OLIC PANEL (14) albumin 4.7 g/dL 3.9-4. 9 normal Not Available [facility] ([facility]) [address] [place], [address], 01/10/2025 08:12:09 01/10/20 25 01/10/2025 COMP. METAB OLIC PANEL (14) globulin, total 2.0 g/dL 1.5-4. 5 Not Available [facility] ([facility]) [address] [place], [address], 01/10/2025 08:12:09 01/10/20 25 01/10/2025 COMP. METAB OLIC PANEL (14) bilirubin, total 0.7 mg/dL 0.0-1. 2 normal Not Available [facility] ([facility]) [address] [facility], [place], [address], 01/10/2025 08:12:09 01/10/20 25 01/10/2025 COMP. METAB OLIC PANEL (14) alkaline phosphatase 75 IU/L 44-121 normal Not Available [facility] ([facility]) [address] [facility], [place], [address], 01/10/2025 08:12:09 01/10/20 25 01/10/2025 COMP. METAB OLIC PANEL (14) AST (SGOT) 77 IU/L 0-40 above high normal Not Available [facility] ([facility]) [address] [facility], [place], [address], 01/10/2025 08:12:09 01/10/20 25 01/10/2025 COMP. METAB OLIC PANEL (14) ALT (SGPT) 143 IU/L 0-44 above high normal Not Available [facility] ([facility]) [address] [facility], [place], [address], 01/10/2025 08:12:09 01/10/20 25 01/09/2025 URINA LYSIS , COMPL ETE specific gravity 1.025 1.005- 1.030 normal Not Available [facility] ([facility]) [address] [facility], [place], [address], 01/10/2025 08:12:10 01/10/20 25 01/09/2025 URINA LYSIS , COMPL ETE pH 7.0 5.0-7. 5 normal Not Available [facility] ([facility]) [address] [place], [address], 01/10/2025 08:12:10 01/10/20 25 01/09/2025 URINA LYSIS , COMPL ETE urine-color YELLOW yellow Not Available [facility] ([facility]) [address] [place], [address], 01/10/2025 08:12:10 01/10/20 25 01/09/2025 URINA LYSIS , COMPL ETE appearance CLEAR clear Not Available [facility] ([facility]) [address] [place], [address], 01/10/2025 08:12:10 01/10/20 25 01/09/2025 URINA LYSIS , COMPL ETE WBC esterase NEGATI VE negati ve Not Available [facility] ([facility]) [address] [place], [address], 01/10/2025 08:12:10 01/10/20 25 01/09/2025 URINA LYSIS , COMPL ETE protein 1+ negati ve/tra ce abnormal Not Available [facility] ([facility]) [address] [place], [address], 01/10/2025 08:12:10 01/10/20 25 01/09/2025 URINA LYSIS , COMPL ETE glucose NEGATI VE negati ve Not Available [facility] ([facility]) [address] [place], [address], 01/10/2025 08:12:10 01/10/20 25 01/09/2025 URINA LYSIS , COMPL ETE ketones NEGATI VE negati ve Not Available [facility] ([facility]) [address] [place], [address], 01/10/2025 08:12:10 01/10/20 25 01/09/2025 URINA LYSIS , COMPL ETE occult blood NEGATI VE negati ve Not Available [facility] ([facility]) [address] [place], [address], 01/10/2025 08:12:10 01/10/20 25 01/09/2025 URINA LYSIS , COMPL ETE bilirubin NEGATI VE negati ve Not Available [facility] ([facility]) [address] [place], [address], 01/10/2025 08:12:10 01/10/20 25 01/09/2025 URINA LYSIS , COMPL ETE urobilinogen ,semi-qn 0.2 mg/dL 0.2-1. 0 normal Not Available [facility] ([facility]) [address] [place], [address], 01/10/2025 08:12:10 01/10/20 25 01/09/2025 URINA LYSIS , COMPL ETE nitrite, urine NEGATI VE negati ve Not Available [facility] ([facility]) [address] [place], [address], 01/10/2025 08:12:10 01/10/20 25 01/09/2025 URINA LYSIS , COMPL ETE microscopic examination SEE BELOW: Micro scopi c was indic ated and was perfo rmed. Not Available [facility] ([facility]) [address] [place], [address], 01/10/2025 08:12:10 01/10/20 25 01/09/2025 URINA LYSIS , COMPL ETE microscopic examination PACKAGER HAND Not Available [facility] ([facility]) [address] [place], [address], 01/10/2025 08:12:10 01/10/20 25 01/10/2025 URINA LYSIS , COMPL ETE WBC NONE SEEN /hpf 0 - 5 Not Available [facility] ([facility]) [address] [facility], [place], [address], 01/10/2025 08:12:10 01/10/20 25 01/10/2025 URINA LYSIS , COMPL ETE RBC NONE SEEN /hpf 0 - 2 Not Available [facility] ([facility]) [address] [facility], [place], [address], 01/10/2025 08:12:10 01/10/20 25 01/10/2025 URINA LYSIS , COMPL ETE epithelial cells (non renal) NONE SEEN /hpf 0 - 10 Not Available [facility] ([facility]) [address] [facility], [place], [address], 01/10/2025 08:12:10 01/10/20 25 01/10/2025 URINA LYSIS , COMPL ETE epithelial cells (renal) PACKAGER HAND Not Available [facility] ([facility]) [address] [facility], [place], [address], 01/10/2025 08:12:10 01/10/20 25 01/10/2025 URINA LYSIS , COMPL ETE casts NONE SEEN /lpf none seen Not Available [facility] ([facility]) [address] [facility], [place], [address], 01/10/2025 08:12:10 01/10/20 25 01/10/2025 URINA LYSIS , COMPL ETE cast type PACKAGER HAND Not Available [facility] ([facility]) [address] [facility], [place], [address], 01/10/2025 08:12:10 01/10/20 25 01/10/2025 URINA LYSIS , COMPL ETE crystals PACKAGER HAND Not Available [facility] ([facility]) [address] [facility], [place], [address], 01/10/2025 08:12:10 01/10/20 25 01/10/2025 URINA LYSIS , COMPL ETE crystal type PACKAGER HAND Not Available [facility] ([facility]) [address] [place], [address], 01/10/2025 08:12:10 01/10/20 25 01/10/2025 URINA LYSIS , COMPL ETE mucus threads PACKAGER HAND Not Available [facility] ([facility]) [address] [facility], [place], [address], 01/10/2025 08:12:10 01/10/20 25 01/10/2025 URINA LYSIS , COMPL ETE bacteria NONE SEEN none seen/f ew Not Available [facility] ([facility]) [address] [place], [address], 01/10/2025 08:12:10 01/10/20 25 01/10/2025 URINA LYSIS , COMPL ETE yeast PACKAGER HAND Not Available [facility] ([facility]) [address] [place], [address], 01/10/2025 08:12:10 01/10/20 25 01/10/2025 URINA LYSIS , COMPL ETE trichomonas PACKAGER HAND Not Available [facility] ([facility]) [address] [place], [address], 01/10/2025 08:12:10 01/10/20 25 01/10/2025 URINA LYSIS , COMPL ETE comment PACKAGER HAND Not Available [facility] ([facility]) [address] [place], [address], 01/10/2025 08:12:10 01/10/20 25 01/10/2025 LIPID PANEL cholesterol, total 171 mg/dL 100-19 9 normal Not Available [facility] ([facility]) [address] [place], [address], 01/10/2025 08:12:10 01/10/20 25 01/10/2025 LIPID PANEL triglyceride s 95 mg/dL 0-149 normal Not Available [facility] ([facility]) [address] [place], [address], 01/10/2025 08:12:10 01/10/20 25 01/10/2025 LIPID PANEL HDL cholesterol 80 mg/dL >39 normal Not Available [facility] ([facility]) [address] [place], [address], 01/10/2025 08:12:10 01/10/20 25 01/10/2025 LIPID PANEL VLDL cholesterol alejandro 17 mg/dL 5-40 Not Available [facility] ([facility]) [address] [place], [address], 01/10/2025 08:12:10 01/10/20 25 01/10/2025 LIPID PANEL LDL chol calc ([facility]) 74 mg/dL 0-99 Not Available [facility] ([facility]) [address] [place], [address], 01/10/2025 08:12:10 01/10/20 25 01/10/2025 LIPID PANEL LDL calc comment: PACKAGER HAND Not Available [facility] ([facility]) [address] [place], [address], 01/10/2025 08:12:10 01/10/20 25 01/10/2025 TSH RFX ON ABNOR MAL TO FREE T4 TSH 1.790 uIU/m L 0.450- 4.500 normal Not Available [facility] ([facility]) [address] [place], [address], 01/10/2025 08:12:11 01/10/20 25 01/10/2025 MAGNE SIUM magnesium 2.2 mg/dL 1.6-2. 3 normal Not Available [facility] ([facility]) [address] [place], [address], 01/10/2025 08:12:12 11/05/19 25 11/04/2024 XR, chest , 2 view Chest 2 Views Fronta l and Lat Reason : Fever COMPAR HALIE: 8/25/2 016 FINDIN GS: LINES AND TUBES: None. [...] IMPRES WERNER: No acute abnorm ality. WSN: [id number] Orderi ng Physic mathieu: Kavon Steele Dictat ed By: Janes Haile MD Dictat ed Date/T audrey: 4:28 pm Review ed By: Amada riley MD, Janes Monson Signed By: Janes Haile MD Signed Date/T audrey: 4:28 pm Transc ribed By: CHRISTOPHER Transc ribed Date/T audrey: 4:27 pm Patien t [facility] [address] [facility], [place], [address], 01/08/2025 13:29:39 01/09/20 25 01/08/2025 elect rocsussy roldangr am No observ ation record ed. moni In-Office Order Internal Use Only DO Not Attach Compendium DO Not Attach Compendium, Do Not Delete/merge, [id number] 01/08/2025 21:47:34 01/09/20 elect rocar diogr am No observ ation record ed. DMEARCUS In-Office Order Internal Use Only DO Not Attach Compendium DO Not Attach Compendium, Do Not Delete/merge, [id number] 01/09/2025 12:00:09 01/20/20 25 01/19/2025 US, liver US Liver Reason : ELEVAT [...] I agree with this report . WSN: [id number] Orderi ng Physic mathieu: Kavon Steele Dictat ed By: Holger Mesa MD Dictat ed Date/T audrey: 11:51 a Review ed By: Renny Avalos MD Signed By: Renny Avalos MD Signed Date/T audrey: 11:56 am Transc ribed By: CHRISTOPHER Transc ribed Date/T audrey: 10:06 am Patien t Class: Outpat ient [facility] (Outpt Imaging) [address] [facility], [place], [address], 05/16/2025 22:00:29 03/28/20 25 03/28/2025 scott michelle [...] by Dr. Dillon Singer . FINDIN GS: Swallo w: Normal oral and pharyn geal phases [...] a narrow ing in the distal esopha heron, subseq uently passin g into the stomac [...] findin g.. By unders igning and finali zing the report , the attend ing radiol ogist confir ms he/she has person ally review ed and interp reted the images and agrees with the descri ption of the findin gs. I have person ally review ed the images and I agree with this report . WSN: [id number] Orderi ng Physic mathieu: Kavon Steele ed By: Dillon Singer DO ed Date/T audrey: 1:21 pm Review ed By: Jl guerrero MD, Ky Gannon Signed By: Jl guerrero MD, Ky V Signed Date/T audrey: 1:26 pm Transc ribed By: CHRISTOPHER Transc ribed Date/T audrey: 9:21 am Patien t Class: Outpat heide [place] [facility] (Ultrasound) [address] [place], [address], 05/16/2025 22:00:01 03/28/2003/28/2025 scott turner ow study No observ ation [facility] [address] [place], [address], 05/16/2025 22:00:03 06/14/2006/13/2025 elect romyo gram + nerve condu ction study No observ ation record ed. [facility] [address], [place], [address], 06/21/2025 13:19:29 Result Notes Documentation Provider Name [...] shoulder arthroplasty. IMPRESSION: No acute abnormality. WSN: [id number] Ordering Physician: Kavon Levine Dictated By: Carlos Phipps MD Dictated Date/Time: 11/04/24 4:28 pm Reviewed By: Carlos Phipps MD Signed By: Carlos Phipps MD Signed Date/Time: 11/04/24 4:28 pm Transcribed By: CHRISTOPHER Transcribed Date/Time: 11/04/24 4:27 pm Patient Class: Outpatient Kavon Levine MD [address] [facility] [address], [place], [address], [facility] 01/08/2025 13:29:39 Barium Swallow Study : PROCEDURE: [...] and I agree with this report. WSN: [id number] Ordering Physician: Kavon Levine Dictated By: Dillon Singer DO Dictated Date/Time: 03/28/25 1:21 pm Reviewed By: Ky Clay MD, V Signed By: Ky Clay MD, V Signed Date/Time: 03/28/25 1:26 pm Transcribed By: CHRISTOPHER Transcribed Date/Time: 03/28/25 9:21 am Patient Class: Outpatient Kavon Levine MD [address], [address], [facility] 05/16/2025 22:00:01 Problems Name Problem SNOMED Code Status Onset Date Resolution Date Notes Provider Name and Address Organization Details Recorded Time Disorder of urinary bladder 07520910 Active Kavon Levine MD [address] [address], [place], [address], [facility] 6 09:07:01 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 14914022 Active Kavon Levine MD [address] [address], [place], [address], [facility] 6 09:07:01 Lyme disease 53160740 Active Kavon Levine MD [address], [place], [address], [facility] 6 09:07:01 Panic attack 731971079 Completed 08/25/2022 Kavon Levine MD [address], [place], [address], [facility] 2 10:12:56 Environm ental allergy 809643244 Active Kavon Levine MD [address], [place], [address], [facility] 6 09:07:01 Body mass index 30+ - obesity 479995699 Completed 10/04/2017 Kavon Levine MD [address], [place], [address], [facility] 5 13:36:35 Contact dermatit is 53722452 Completed 10/04/2017 Kavon Levine MD [address], [place], [address], [facility] 8 10:48:55 Disorder of skin 01529035 Completed 04/23/2016 Kavon Levine MD [address], [place], [address], [facility] 6 09:07:01 Hyperpla stic polyp of intestin e 42574075 Active Kavon Levine MD [address], [place], [address], [facility] 6 09:07:01 Thromboc ytopenic disorder 761818861 Active Kavon Levine MD [address], [place], [address], [facility] 6 09:07:01 Urine microsco py: presence of cells - finding 814619220 Completed 09/23/2016 [place] Vergara, [facility] 7 10:44:28 Actinic keratosi s 806546563 Completed 10/04/2017 Kavon Levine MD [address], [place], [address], [facility] 8 10:48:09 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 010906849 Active Kavon Levine MD [address], [place], [address], [facility] 6 09:07:01 Blood in urine 83955463 Completed 09/23/2016 [place] Verg[place], [facility] 7 10:44:09 Hypogona dism 20690634 Active Kavon Levine MD [address], [place], [address], [facility] 6 09:07:01 Upper abdomina l pain 80886802 Completed 09/23/2016 [place] Vergara, [facility] 7 10:44:34 Gastroes ophageal reflux disease 108027389 Active Kavon Levine MD [address], [place], [address], [facility] 6 09:32:59 Hiatal hernia 06286570 Active Kavon Levine MD [address], [place], [address], [facility] 5 06:55:16 Chest wall pain 202868287 Completed 09/23/2016 [place] Vergara, [facility] 7 10:44:03 Advance directiv e discusse d with patient 124877615 Completed 10/04/2017 Kavon Levine MD [address], [place], [address], [facility] 8 10:47:20 Testicul ar hypofunc tion 607372291 Completed 201501/08/2025 Kavon Levine MD [address], [place], [address], [facility] 5 13:36:06 Obstruct milla sleep apnea syndrome 18646205 Active 2016 Kavon Levine MD [address], [place], [address], [facility] 7 22:31:33 Dysphagi a 13396866 Completed 201610/04/2017 Kavon Levine MD [address], [place], [address], [facility] 8 10:47:12 Insomnia 977899819 Active 2016 Kavon Levine MD [address], [place], [address], [facility] 7 11:41:51 Increase d liver function 73560675 Completed 201601/08/2025 Kavon Levine MD [address], [place], [address], [facility] 5 14:02:40 Divertic ular disease 617788611 Active 2017 Kavon Levine MD [address], [place], [address], [facility] 8 10:43:46 Greater trochant lashaun pain syndrome 1054230 Completed 201701/08/2025 Kavon Levine MD [address], [place], [address], [facility] 5 14:01:41 Hepatome maria elena 03821764 Active 2017 Kavon Levine MD [address], [place], [address], [facility] 8 12:58:09 Non-alco holic fatty liver 557433014 Active 2017 Kavon Levine MD [address], [place], [address], [facility] 8 12:58:18 Supraspi natus tendinit is 178435464 Completed 201701/08/2025 Kavon Levine MD [address], [place], [address], [facility] 5 14:03:02 Impingem ent syndrome of shoulder region 836135727 Active 2018 Kavon Levine MD [address], [place], [address], [facility] 9 12:26:13 Arthriti s of acromioc lavicula r joint 951591093 Active 2018 Kavon Levine MD [address], [place], [address], [facility] 9 12:27:08 Adhesive capsulit is of right shoulder 12489856619 9109 Completed 201808/25/2022 Kavon Levine MD [address], [place], [address], [facility] 2 10:05:25 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 173951615 Active 2019 Kavon Levine MD [address], [place], [address], [facility] 0 12:50:37 Spinal stenosis in cervical region 86965431 Completed 202001/08/2025 mild C3-C4, mild impingem ent C5-C6 Kavon Levine MD [address], [place], [address], [facility] 5 13:36:03 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 76622218944 9100 Active 2020 Kavon Levine MD [address], [place], [address], [facility] 1 12:45:34 Tendinos is of left shoulder 78010843179 137864 Active 2021 Kavon Levine MD [address], [place], [address], [facility] 2 12:24:55 Herpes zoster 6508855 Completed 202108/25/2022 Removal Reason: resolved Kavon Levine MD [address], [place], [address], [facility] 2 10:06:35 History of herpes zoster 19427578449 9108 Active 2021 Kavon Levine MD [address], [place], [address], [facility] 2 10:06:18 Albuminu brock 388748699 Active 2022 Kavon Levine MD [address], [place], [address], [facility] 3 10:29:09 Cervical disc disorder 450099081 Active 2022 Kavon Levine MD [address], [place], [address], [facility] 3 20:14:38 Hypercal cemia 86444049 Completed 202204/09/2023 Kavon Levine MD [address] [facility] [address], [place], [address], [facility] 3 07:47:51 Hypernat remia 902830796 Completed 202202/01/2023 Kavon Levine MD [address] [facility] [address], [place], [address], [facility] 3 19:23:55 Hyperosm olality and or hypernat remia 271150487 Completed 202201/08/2025 Kavon Levine MD [address] [facility] [address], [place], [address], [facility] 5 13:35:32 Peeling of skin 808474976 Completed 202201/08/2025 Kavon Levine MD [address] [facility] [address], [place], [address], [facility] 5 13:35:57 Chronic kidney disease stage 1 573030697 [facility] 21:14:13 Cervical spondylo sis 016610989 Active 2022 Kavon Levine MD [address] [facility] [address], [place], [address], [facility] 3 11:12:29 Electroc ardiogra m abnormal 620464470 Active 2024 Kavon Levine MD [address] [facility] [address], [place], [address], [facility] 5 22:45:36 Body mass index 30+ - obesity 320029512 Active 2024 Kavon Levine MD [address] [facility] [address], [place], [address], [facility] 5 13:36:35 Elevated blood-pr essure reading without diagnosi s of hyperten werner 419013899 Completed 202401/08/2025 Kavon Levine MD [address] [facility] [address], [place], [address], [facility] 5 13:46:54 Impaired fasting glycemia 600696536 Active 2024 Kavon Levine MD [address] [facility] [address], [place], [address], [facility] 5 09:20:09 Enzyme level - finding 528033465 Active 2024 Kavon Levine MD [address] [facility] [address], [place], [address], [facility] 5 09:27:15 Asymptom atic proteinu brock 647827727 Active 2024 Kavon Levine MD [address] [facility] [address], [place], [address], [facility] 5 09:27:19 Esophage al dysphagi a 69050964 Active 2024 Kavon Levine MD [address] [facility] [address], [place], [address], [facility] 5 15:53:44 Strictur e of esophagu s 34895067 Active 2024 Kavon Levine MD [address] [facility] [address], [place], [address], [facility] 5 06:58:13 Esophage al dysmotil ity 500280571 Active 2024 Kavon Levine MD [address] [facility] [address], [place], [address], [facility] 5 06:58:14 Bilatera l ulnar nerve disorder 47655311201 809975 Active 2024 Kavon Levine MD [address] [facility] [address], [place], [address], [facility] 5 08:59:25 Acute bacteria l sinusiti s 98088409 Active 2024 ADIA MARQUES [facility] [address] [address], [place], [address], [facility] 5 10:52:28 Wheezing symptom 426146652 Active 2024 ADIA MARQUES [facility] [address] [address], [place], [address], [facility] 5 10:55:46 Problem Notes None recorded. Procedures Surgical History Date Name Laterality Status Provider Name and Address Organization Details Recorded Time 025 total shoulder replacement completed Alicia Ardno MA [facility] 01/08/2025 13:15:49 023 excision of cervical intervertebral disc completed Kavon Levine MD [address] [address], [place], [address], [facility] 11/06/2023 19:57:20 023 epidural injection of cervical spine using fluoroscopic guidance completed Kavon Levine MD [address] [address], [place], [address], [facility] 04/02/2023 08:18:38 022 Colonoscopy completed Kavon Levine MD [address], [address], [facility] 08/26/2022 15:03:15 020 procedure on shoulder [facility] 09/12[facility]2019 14:46:53 019 shoulder injection [facility] 10/11/2018 12:28:47 018 Echo transthoracic completed Kavon Levine MD [address] [facility], [place], [address], [facility] 04/08/2018 09:52:55 018 Cardiovascular stress test completed Kavon eLvine MD [address] [facility] [address] [facility], [place], [address], [facility] 04/08/2018 09:53:34 017 Joint Injection completed Kwaku Shah MD [address] [facility], [place], [address], [facility] 09/23/2016 11:47:24 016 Advanced Care Planning completed Kavon Levine MD [address] [facility] [address] [facility], [place], [address], [facility] 04/23/2016 09:32:40 012 EGD completed Kavon Levine MD [address] [facility] [address] [facility], [place], [address], [facility] 03/08/2016 14:18:51 000 Orthopedic Surgery completed Kavon Levine MD [address] [address], [place], [address], [facility] 04/23/2016 09:05:07 997 Vasectomy completed Nae Betancur [place] [facility] 04/18/2015 13:00:16 996 ENT Surgery completed Kavon Levine MD [address] [facility], [place], [address], [facility] 04/18/2015 13:39:38 996 Hemorrhoidectomy completed Nae Betancur [place] [facility] 04/18/2015 13:00:16 982 Tonsillectomy completed Nae Betancur MA [facility] 04/18/2015 13:00:15 Cystourethroscopy completed Kavon Levine MD [address] [facility] [address], [place], [address], [facility] 09/11/2016 12:15:53 Imaging Results None recorded. Procedure Notes None recorded. Medical Equipment None Reported. Allergies Allergen ID Allergen Name Allergen Category Reaction Reaction Severity Criticality Documentation Date Start Date Code Code System Note Provider Name and Address Organization Details Recorded Time Demerol medicatio n nausea Not available Not available 04/18/2015 00075 1 RxNorm [place] [facility] 2 10:58:48 26068 Substance with sulfonami de structure and antibacte rial mechanism of action (substanc e) medicatio n fever nausea Not available Not available Not available 04/18/2015 03751 8003 SNOMED [facility] 2 10:58:47 87073 Cipro medicatio n other Not available Not available 04/18/2015 91834 3 RxNorm Nae Betancur [place], [facility] 2 10:58:42 62429 meperidin e medicatio n Not available Not available Not available 07/23/2025 6754 RxNorm Not Available [employer] [facility] 5 09:57:59 61174 ciproflox acin medicatio n Not available Not available Not available 07/23/20252013 2551 RxNorm Not Available [employer] [facility] 5 09:58:00 Medications Name Sig Start Date Stop Date [...] hours by oral route for 7 days. 04/12 completed Not Available Not Available Not [...] Available Not Available lisinopril 20 mg tablet TAKE 1 TABLET DAILY active Not Available Not Available No t Available prednisone 20 mg tablet Take 2 tablets [...] mg-potassi um clavulanat e 125 mg tablet Take 1 tablet every 12 hours by oral route as directed for 7 days. 2024 active Not Available Not Available Not Avai lable oxycodone 5 mg tablet TAKE 1 TABLET [...] Not Available Not Available Not Available Afluria 8937-3700 (PF) 45 mcg(15 mcg x 3)/0.5 mL intramuscu lar syringe 09/11 completed Not Available Not Available Not Available Fish Oil 1,000 mg (120 mg-180 mg) capsule Take 1 capsule every day by oral route. active Not Available Not Available No t Available Flucelvax Quad 1653-0284 (PF) 60 mcg (15 mcg x 4)/0.5 [...] Updated DateTime 5 167.64 cm 32.3 kg/m2 49295.4 7 g 108 /min 95 % 95 % 97.6 [degF] 100/70 mm[Hg] [facility] 5 10:03:26 Date Recorded Body height Body mass index (BMI) Body weight Heart rate Oxygen saturation Oxygen saturation in Arterial blood by Pulse oximetry Body temperature Systolic And Diastolic Systolic And Diastolic Provider Name and Address Organization Details Last Updated DateTime 5 167.64 cm 32.1 kg/m2 10309.8 8 g 100 /min 97 % 97 % 98.2 [degF] 141/97 mm[Hg] 132/90 mm[Hg] [facility] 5 13:21:56 Date Recorded Systolic And Diastolic Provider Name and Address Organization Details Last Updated DateTime 04/12/2025 152/86 mm[Hg] Kavon Levine MD [address] [address], [place], [address], [facility] 04/12/2025 10:43:21 Date Recorded Body height Oxygen saturation Oxygen saturation in Arterial blood by Pulse oximetry Heart rate Body temperature Systolic And Diastolic Systolic And Diastolic Provider Name and Address Organization Details Last Updated DateTime 5 167.64 cm 98 % 98 % 102 /min 97.5 [degF] 158/82 mm[Hg] 161/85 mm[Hg] Lyndsay Mccauley MA [facility] 5 10:14:55 Date Recorded Body height Body mass index (BMI) Body weight Heart rate Oxygen saturation Oxygen saturation in Arterial blood by Pulse oximetry Body temperature Systolic And Diastolic Systolic And Diastolic Provider Name and Address Organization Details Last Updated DateTime 5 167.64 cm 31.9 kg/m2 76604.5 g 100 /min 98 % 98 % 98.7 [degF] 147/100 mm[Hg] 132/92 mm[Hg] lAicia Ardon MA [facility] 5 13:12:50 Date Recorded Body height Body mass index (BMI) Body weight Oxygen saturation Oxygen saturation in Arterial blood by Pulse oximetry Heart rate Body temperature Systolic And Diastolic Provider Name and Address Organization Details Last Updated DateTime 5 167.64 cm 32 kg/m2 59515.6 9 g 98 % 98 % 86 /min 98.4 [degF] 131/83 mm[Hg] Lyndsay Mccauley MA [facility] 5 10:38:58 Social History Question Answer Notes LastModified by Organizat ion Details LastModified Time Tobacco Smoking Status [facility] 04/18/2015 13:02:45 Do You Have An Advance Directive? Yes HCP/ Nia Wilhelm [email or web address] Information not available 01/23/2022 Is Blood Transfusion [...] available 04/18/2015 Seat Belts Used Routinely Yes [email or web address] Information not available 01/23/2022 Are You Sexually Active? 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 [email or web address] Information not available 08/25/2022 Are you able to care for yourself independently? Yes Information not available 04/18/2015 What is your occupation? [employer] Fully Retired from both jobs on 12/21/2024 Information not available 01/08/2025 What is your exercise level? Moderate Information not available 01/27/2016 Mental Status None recorded. Family History Relationship Description Onset Age of this Age Resolved Age Notes LastModified by Organization Details LastModified Time Father Diabetes mellitus [email or web address] Not available 04/23 09:09:47 Father Malignant neoplastic disease lympho ma [email or web address] Not available 01/23/2022 08:17:41 Brother Malignant neoplastic disease thyroi d [email or web address] Not available 01/23/2022 08:17:41 Brother Disorder of thyroid gland [email or web address] Not available 04/23 09:09:47 Maternal Grandmother Dementia [email or web address] Not available 09:09:47 Son Well adult [email or web address] Not avail able 01/23/2022 08:17:41 Mother Dementia 80 [email or web address] Not availab le 08/25/2022 10:07:42 Medical History Condition Response Other N Gout N Kidney Stones N Blood Diseases N Hyperthyroidism N Breast Cancer N Depression N COPD N Lung Disease N Hypothyroidism N Defects or Inherited Disease N Anesthesia Complications N Headaches/Migraines N Varicose Veins N Anxiety Disorder N Obesity N Vision or Eye Problems N Arthritis N Head Injury/Concussion N Polyps N Infertility N Congenital Anomalies N Acid Reflux (GERD) [...] virus, quadrivalent, preservative 6 completed Not Available [facility] 04/01/2023 10:02:27 Influenza, split virus, quadrivalent, preservative 7 completed Not Available [facility] 04/01/2023 10:02:27 zoster recombinant 9 completed [place] Cardenas [facility] 01/05/2022 09:09:29 COVID-19, mRNA, LNP-S, PF, 100 mcg/0.5mL dose or 50 mcg/0.25mL dose 1 completed Naetj BetancurPHOENIX [facility] 01/05/2022 09:09:29 zoster recombinant 9 completed [place] Gypsy [place] saleh [facility] 01/05/2022 09:09:29 MMR 8 completed [facility] 01/05/2022 09:09:29 Influenza, split virus, trivalent, preservative 3 completed Nae Betancur [place] [facility] 01/05/2022 09:09:29 COVID-19, mRNA, LNP-S, PF, 100 mcg/0.5mL dose or 50 mcg/0.25mL dose 1 completed Nae Betancur [place] [facility] 01/05/2022 09:09:29 Influenza, split virus, quadrivalent, preservative 5 completed Nae Betancur [place] [facility] 01/05/2022 09:09:29 COVID-19, mRNA, LNP-S, PF, 100 mcg/0.5mL dose or 50 mcg/0.25mL dose 1 completed Cortlandtj Betancur [place] [facility] 01/05/2022 09:09:29 MMR 8 completed Nae Gypsy [place] [facility] 01/05/2022 09:09:29 Influenza, split virus, trivalent, PF 6 completed [facility]land[facility]j [facility] 01/05/2022 09:09:29 COVID-19, mRNA, LNP-S, PF, 100 mcg/0.5mL dose or 50 mcg/0.25mL dose 2 completed [place] Cardenas [facility] 01/05/2022 09:09:29 Influenza, MDCK, quadrivalent, PF 7 completed [place] Cardenas [facility] 01/05/2022 09:09:29 Influenza, split virus, quadrivalent, PF 8 completed [place] Cardenas [facility] 01/05/2022 09:09:29 Influenza, split virus, quadrivalent, PF 1 completed [place] Cardenas [facility] 01/05/2022 09:09:29 Tdap 5 completed [place] Marie [facility] 06/17/2022 13:32:56 Influenza, split virus, trivalent, PF 4 completed [place] Marie [facility] 11/04/2024 09:54:46 Pneumococcal conjugate PCV20, polysaccharide [id number] conjugate, adjuvant, PF 5 completed Not Available [facility] 07/23/2025 10:27:06 Tdap 5 completed Not Available [facility] 07/23/2025 10:27:06 Past Encounters Encounter ID Performer Location Encounter Start Date Encounter Closed Date Diagnosis/Indication Diagnosis SNOMED-CT Code Diagnosis ICD10 Code Diagnosis IMO Codes Diagnosis Note [id number] Kavon Levine MD Main Office [address] [facility] [address] [facility] [address] 04/18/2015 12:54:55 04/18/2015 14:23:27 Adult health examination 864712390 Will update immunizati on status and screen based on risk factors. Will track down previous colonoscop y report. Regular dental and ophtho care advised as well as seatbelt and sunscreen use. Distracted driving discussed. Advance directives in place. Body mass index 30+ - obesity 839136903 Panic attack 239250473 Use is reportedly infrequent . Will refill and monitor. Administra tion of diphtheria, pertussis, and tetanus vaccine 709999150 Contact dermatitis 96507354 Suspect this might be the cause, fungal less likely given lack of response to topical antifungal . Call inb/worse. Disorder o f urinary bladder 32792529 Will request urology records for further clarificat ion of diagnosis. Disorder of skin 22222277 Possible BCC, will ask derm for opinion. [id number] Kavon Levine MD Main Office [address] [facility] [address] [place] [address] 01/27/2016 14:45:16 01/27/2016 15:46:43 Panic attack 065080611 F41.0 Use is reportedly infrequent . Will refill and monitor. Upper abdominal pain 831 89029 R10.10 ? if related to HH vs PUD vs pancreatit is. Normal recent imaging works against pancreatit is. Will recheck labs and UGI to look for pathology. Will also try to track down last EGD result. Depending on results may need to f/u with GI or be referred to thoracic surgery. [id number] Kavon Levine MD Main Office [address] [facility] [address] [place] [address] 04/23/2016 08:34:46 04/23/2016 09:32:13 Adult health examination 678769701 Z00.01 Immunizati on status utd will screen based on risk factors. Flu advised in the Fall. Will track down previous colonoscop y report. Regular dental and ophtho care advised as well as seat belt and sunscreen use. Distracted driving discussed. Advance directives in place and updated. Body mass index 30+ - obesity 536489817 Z68.35 Hiatal hernia 79010924 K 44.9 ? if this is the cause of his upper abd/lower chest pain. Gastroesop hageal reflux disease 232296771 K21.9 Will titrate PPI while waiting for GI eval. Pt advised to limit NSAID and caffeine use. Chest wall pain 85787351 6 R07.89 Advance di rective discussed with patient 265252519 Z71.89 [id number] Kavon Levine MD Main Office [address] [facility] [address] [place] [address] 09/11/2016 11:25:02 09/11/2016 12:39:42 Gastroesophageal reflux disease 095046436 K21.9 Will continue current PPI dose but needs further eval for dysphagia. Intermitte nt dysphagia 19084873 R13.19 ? if this is a neurologic issue. Will ask neuro to help evaluate this as well as possibly help with sleep issues. Pain of hip region 04547 002 M25.552 Image to look for OA. If nl will refer to bursal injection. Tremor 58122069 R25.1 Persistent insomnia 1919 88539 G47.09 See if low dose TCA helps with this. May have impact on other neuro issues. Acute sinusitis 01946936 J01.90 Advised to f/u with ENT if nasal steroid doesn't help. [id number] Kwaku Shah MD Main Office [address] [address] [place] [address] 09/23/2016 10:27:26 09/23/2016 11:43:51 Greater trochanteric pain syndrome 3485999 M70.62 [id number] Kavon Levine MD Main Office [address] [place] [address] 11/02/2016 10:48:49 11/02/2016 11:49:40 Obstructive sleep apnea syndrome 79118990 G47.33 Being fitted for a mask, has sleep medicine f/u. Gastroesop hageal reflux disease 669168320 K21.9 Will continue current PPI dose but needs further eval for dysphagia. Dysphagia 52892980 R13.1 0 Insomnia 331735942 G47.0 0 Responding well to TCA, will continue treatment. [id number] Kavon Levine MD Main Office [address] [place] [address] 04/05/2017 15:32:16 04/05/2017 16:17:20 Spasm of back muscles 745688245 M62.830 Refer to PT if not slowly improving. Will need further eval if persistent /worse. Increased liver function 39792012 R94.5 Persistent despite wt loss. Imaging from Aug was unremarkab le. ? if this is medication vs hepatocell ular disease related. Pt would like to see a different GI MD. Obstructiv e sleep apnea syndrome 64872920 G47.33 Will track down sleep study results and neuro notes to help verify issue and plan. [id number] Kavon Levine MD Main Office [address] [facility] [address] [place] [address] 10/04/2017 10:16:09 10/04/2017 11:08:59 Adult health examination 118986068 Z00.00 Immunizati on status utd will screen based on risk factors. Colon cancer screening utd, prostate cancer screening coordinate d via urology. Regular dental and ophtho care advised as well as seat belt and sunscreen use. Distracted driving discussed. Advance directives in place. Insomnia 911470801 G47.0 0 Responding well to TCA, will continue treatment. Obstructiv e sleep apnea syndrome 26051931 G47.33 Tolerating CPAP well. Following with sleep medicine. Thrombocyt openic disorder 712180705 D69.6 Had labs done last week with GI. Presume that CBC was done. Lyme disease 13409710 A6 9.20 Diagnosed and treated by Dr. Aparicio. Body mass index 25-29 - overweight 342663674 E66.3 Z68.25 Increased liver function 67560628 R94.5 Seeing GI for this issue and had labs done last week. Will await reports. Greater tr ochanteric pain syndrome 2386997 M70.62 Mild/impro ving. Will call for injection referral if worse as it has worked well in the past. [id number] Kavon Levine MD Main Office [address] [address] [place] [address] 03/29/2018 10:57:02 03/29/2018 12:49:19 [id number] Kavon Levine MD Main Office [address] [address] [place] [address] 04/08/2018 08:58:11 04/08/2018 09:49:34 Dizziness 819997194 R42 Sounds secondary to dehydratio n, possibly hypoglycem ia, less likely arrythmia. Cardiac etiology unlikely at this time based on negative extensive work up. Advised to call if recurrent tejinder with exertion. Palpitations 07442177 R0 0.2 Would consider holter monitor if recurrent. Adequate hydration, regular meals and avoiding excessive caffeing intake advised. [id number] Kavon Levine MD Main Office [address] [address] [place] [address] 05/09/2019 11:27:24 05/09/2019 12:23:32 Insomnia 624155753 G47.00 Responding well to TCA, will continue treatment. Localized swelling, mass and lump, neck 834419015 R22.1 WIll characteri ze further with u/s. If negative will monitor clinically . Mass of chest wall 73270 4000 R22.2 Suspect arthritic changes. Will see if XR shows anything. Monitor clinically if negative. [id number] Kavon Levine MD Main Office [address] [facility] [address] [facility] [place] [address] 01/05/2022 09:03:21 01/05/2022 09:46:20 Insomnia 944749979 G47.00 Responding well to TCA, will continue treatment, but needs f/u for CPAP surveillan ce. Gastroesop hageal reflux disease 690775723 K21.9 Will continue current low PPI dose. No red flag symptoms and due for routine GI f/u on this and colonoscop y. Obstructiv e sleep apnea syndrome 58343500 G47.33 Tolerating CPAP well. Needs new sleep medicine care. Non-alcoho lic fatty liver 098467975 K76.0 Increased liver function 01827414 R94.5 Likely from fatty liver and based on recent labs (02/2021) done by Dr Aparicio has been stable. [id number] Kavon Levine MD Telehealt [address] [facility] [address] [facility] [place] [address] 01/23/2022 08:17:13 01/23/2022 14:18:51 Persistent cough 900508560 R05.3 Possibly related to thrush/pha ryngeal irritation . Will image to rule out pneumonia. Will treat for oral/esoph ageal thrush and modify regimen if indicated based on CXR and lab results. Advised to alejandro inb/worse. Candidiasis of mouth 797 85309 B37.0 Advised to hold hydroxychl oroquine, amitryptil ine, alfusozin, nystatin and cefdinir while on fluconazol e. [id number] Kavon Levine MD Main Office [address] [facility] [address] [place] [address] 06/17/2022 13:19:40 06/17/2022 14:08:47 Herpes zoster 4575287 B02.9 itchy rash R lateral thigh highly [...] calamine --- call us if develop PHN [id number] Kavon Levine MD Main Office [address] [facility] [address] [place] [address] 08/25/2022 09:26:46 08/25/2022 10:23:52 Adult health examination 139434364 Z00.00 Immunizati on status utd will screen based on risk factors. Colon cancer screening utd, prostate cancer screening coordinate d via urology. Regular dental and ophtho care advised as well as seat belt and sunscreen use. Distracted driving discussed. Advance directives in place. Benign pro static hyperplasia with outflow obstruction 712177458 N40.1 Followed and managed by Dr. Lyn. Body mass index 30+ - obesity 635548022 Z68.30 E66.9 Gastroesop hageal reflux disease 288351009 K21.9 Will continue current low PPI dose. No red flag symptoms and due for routine GI f/u on this and colonoscop y. Elevated blood-pressure reading without diagnosis of hypertension 479901827 R03.0 High-grade urothelial carcinoma found on urine cytology 740911474 R82.89 Following with urology q 6 months. Hypogonadism 27851657 E2 9.1 Managed and monitored by urology. Obstructiv e sleep apnea syndrome 23738596 G47.33 Sleep study scheduled next week with sleep medicine down the [place]. Thrombocyt openic disorder 369285308 D69.6 Will monitor with urology. Screening for cardiovascular system disease 141889978 Z13.6 Hepatitis C screening 41 9067079 Z11.59 [id number] Kavon Levine MD Main Office [address] [facility] [address] [place] [address] 12/29/2022 09:02:46 12/29/2022 09:43:37 Hypertensive renal disease 54442983 I12.9 Given albuminuri a and intermitte nt elevations will try low dose ACEI and titrate as tolerated to goal BP control. Common/ser ious side effects discussed. Advised to call with any problems and go for labs in 2-3 weeks. Also advised to d/c meloxicam if possible and work on restrictin g Na intake. Albuminuria 431690045 R8 0.9 Spinal narciso nosis in cervical region 68924172 M48.02 This is why he is using NSAID and symptoms are worse. Will update imaging and consult neurosurg of progressio n is noted. Chronic ki dney disease stage 1 052336067 N18.1 [id number] Brent Monterroso MD Main Office [address] [facility] [address] [place] [address] 03/16/2023 10:42:33 03/16/2023 11:08:27 Peeling of skin 724042349 R23.4 will refill clotrimazo le/ betamethas one, use bid X 7 DAYS ON, 7 DAYS OFF, use moisturize r BID as well- recommend cerave. Will refer to derm. Call/ return for any concerns/ worsening, avoid eye area. [id number] Kavon Levine MD Main Office [address] [facility] [address] [place] [address] 04/01/2023 10:00:20 04/01/2023 11:00:50 Spinal stenosis in cervical region 67055525 M48.02 Seeing PMR, but no correspond ence received. Will request reports. See if muscle relaxant helps. Hypertensi ve renal disease 42238323 I12.9 Well controlled , continue current regimen. Hypercalcemia 80527887 E 83.52 Working on limiting dietary intake. If persistent may need endocrine eval. Butterfly rash 18771028 R21 related to photosensi tivity or contact from CPAP, will screen for autoimmune disease/in flammation . Chronic ki dney disease stage 1 218252298 N18.1 [id number] Kavon Levine MD Telehealt h [address] [facility] [address] [place] [address] 11/05/2023 10:41:56 11/05/2023 13:53:25 COVID-19 727393972 U07.1 Based on duration of symptoms and risk factors/co morbiditie s pt is a candidate for antiviral therapy. Local pharmacy with availabili ty identified . Common/ser ious potential side effects discussed. Pt advised to call with any problems or if not slowly improving. Current isolation guidelines discussed/ advised. Advised to hold alfuzosin x 7 days. Cough 60869456 R05.9 Symptomati c/supporti ve tx advised. To ED if dyspnea develops. Call inb/worse. Muscle spa sm of cervical muscle of neck 2291676747 04 M62.838 Adequate hydration advised. Acute on chronic issue, will refill previously effective rx. [id number] Brent Monterroso MD Main Office [address] [facility] [address] [facility] [address] 07/26/2024 10:30:53 07/26/2024 11:09:16 Bicipital tenosynovitis 49898850 M75.22 Advised ibuprofen 800 mg tid. I will send a referral to [facility] and he will call tomorrow for an appointmen t. Hydrocodon e prn and tizanidine prn. [id number] Kavon Levine MD Main Office [address] [facility] [address] [facility] [address] 11/04/2024 09:46:49 11/04/2024 10:39:28 Fever 849219560 R50.9 Significan tly symptomati c from flu A for sure. Will assess for PNA/second sanket infection with CXR. Will cover with abx if infiltrate present. Upper resp iratory tract infection caused by Influenza A virus [id number] 30743 J09.X2 Cough 30586080 R05.9 Symptomati c/supporti ve tx advised. To ED if dyspnea develops. Call inb/worse. Muscle pain 40145360 M79 .10 Will see if short steroid taper helps mitigate inflammato ry symptoms as NSAIDS have been in effective. [id number] Kavon Levine MD Main Office [address] [facility] [address] [facility] [address] 01/08/2025 12:54:34 01/08/2025 14:21:27 Adult health examination 064220412 Z00.00 Immunizati on status utd will screen based on risk factors. Colon cancer screening utd, prostate cancer screening coordinate d via urology. Regular dental and ophtho care advised as well as seat belt and sunscreen use. Distracted driving discussed. Advance directives in place. Benign pro static hyperplasia with outflow obstruction 069269257 N40.1 Followed and managed by Dr. Lyn. Body mass index 30+ - obesity 510661196 E66.9 Z68.32 Gastroesop hageal reflux disease 198524112 K21.9 Will continue current low PPI dose. Now with dysphagia that needs further eval. If abnl or symptoms persist we mayneed to revisit GI. High-grade urothelial carcinoma found on urine cytology 880203794 R82.89 Following with urology q 6 months. Hypogonadism 87528038 E2 9.1 Managed and monitored by urology. Obstructiv e sleep apnea syndrome 40776437 G47.33 Unable to tolerate CPAP. Thrombocyt openic disorder 660667011 D69.6 Will monitor. Screening for cardiovascular system disease 388762457 Z13.6 Administra tion of pneumococcal vaccine 01147653 Z23 Requires d iphtheria, tetanus and pertussis vaccination 534586739 Z23 438758 Intermitte nt palpitations 559074637 R00.2 75086095 With untreated EVELYN and obesity had risk for afib. With nl ECG will monitor symptoms. Essential hypertension 60325738 I10 76944 Fair control, continue lisinopril . Esophageal dysphagia 408 91118 R13.19 8211 Screen for stricture. Allergic conjunctivitis of bilateral eyes 7948063201 91461 H10.13 300950 Call inb/worse. [id number] Kavon Levine MD Main Office [address] [facility] 207 [facility] [place] [address] 04/12/2025 10:00:59 04/12/2025 10:51:09 Bilateral ulnar nerve disorder 4077222381 0761811 G56.23 66467986 Having EMG done in June 13 Stricture of esophagus 70451431 K22.2 32941 Scheduled with GI for 04/18. Essential hypertension 06318911 I10 52642 Took lisinopril just before today's visit. Titrate dose if >130/90 at f/u. Body mass index 30+ - obesity 591163730 E66.9 Z68.32 Carries weight related comorbidit ies. Will try nutritiona l counseling . If unsuccessf ul and ins covers he will be a candidate for GLP1 agonist therapy. Enzyme lev el - finding 453823230 R74.01 2626825 Secondary to fatty liver disease seen on liver u/s in January. Obstructiv e sleep apnea syndrome 65285521 G47.33 Unable to tolerate CPAP. Non-alcoho lic fatty liver 233538341 K76.0 Assess risk factor control. [id number] Kavon Levine MD Main Office [address] [facility] [address] [place] [address] 06/21/2025 12:46:49 06/21/2025 13:34:11 Body mass index 30+ - obesity 699111882 E66.9 Z68.32 Carries weight related comorbidit ies. Will try nutritiona l counseling . If unsuccessf ul and ins covers he will be a candidate for GLP1 agonist therapy. Esophageal dysphagia 408 24329 R13.19 8211 Resolved post dilation. On high dose PPI. Bilateral ulnar nerve disorder 6001481986 3797240 G56.23 [id number] Has appt with Dr. Manuel next week Hypertensi ve renal disease 47945783 I12.9 Well controlled , continue current regimen. Obstructiv e sleep apnea syndrome 33426784 G47.33 Unable to tolerate CPAP. [id number] Kavon Levine MD Main Office [address] [facility] [address] [place] [address] 07/23/2025 10:25:59 07/23/2025 11:08:12 Acute bacterial sinusitis 85791949 J01.90 B96.89 19710 - Patient describes worsening sinus pressure, congestion , cough, and sweats/chi lls over the past 7 days in the setting of history of sinus surgeries, recurrent sinusitis. Given course of illness with worsening symptoms and patient's history, treating as bacterial infection. - Starting Augmentin BID x 7 days. Advised take with food, may take probiotic supplement or eat food w/ probiotics , monitor for nausea/vom iting/diar sanket/abdom inal pain.- RTC if symptoms persist or worsen despite treatment Health Concerns Section Related Observation LastModified by Organization Detai ls LastModified Time None Recorded Concern Status LastModified by Organization Details LastModified Time None Recorded Advance Directives Directive Y: ELADIO/ Niaaline Wilhelm Payers Insurance Date Sequence Insurance Name Policy Number Policy Vargas Covered Member ID Vargas Member ID Guarantor Name 07/23/2025 1 [facility] NETWORK [facility] [place] [id number] Fermin Wilhelm [id number] Fermin Wilhelm Notes Date Note Type Note Provider Name and Address Organization Details Recorded Time 5 text/html Upper Respiratory SymptomsReported by PatientUpper Respiratory SymptomsFor quality, patient reportsproductive cough. For context, patient reportssick contactbut reportsno foreign travelandnon-smoker. For associated symptoms, patient reportsshortness of breathandwheezing. For location, patient reportsheadandchest. For severity, patient reportsmoderate.Symptoms started just about 2 days ago. CoughReported by PatientHPIFor quality, patient reportsharsh. For severity, patient reportsworseningandpain with coughbut reportsmoderate. Kavon Levine MD [address] [address], [place], [address], [facility] 11/23/2024 07:20:06 5 text/html Generic HPI TemplateReported by PatientHere for a physical. Feeling great lately. Seeing dentist and ophtho regularly. Kavon Levine MD [address] [address], [place], [address], [facility] 01/08/2025 14:06:18 5 text/html Hypertension F/UReported by [...] reportsadditional diagnosis: __. 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 Kavon Levine MD [address] [facility] [address], [place], [address], [facility] 06/21/2025 13:32:35 5 text/html Upper Respiratory SymptomsReported by PatientUpper Respiratory SymptomsFor quality, patient reportsproductive cough,colored phlegm (green), andcongested(green mucous when blowing nose.). For associated symptoms, patient reportsyellow-green, thick sputum,green sputum,sweats,sore throat (and itchy), andnauseabut reportsno shortness of breath,no wheezing,no change in number of pillows needed to sleep at night,no fever,no significant weight gain,no significant weight loss,no morning cough,no vomiting,no diarrhea, andno rash(feels like sputum produced with coughing is from pnd, not from sputum/secretions within his lungs.). For location, patient reportshead. For modifying factors, patient reportsotc medication (dayquil with some relief). For duration, (symptoms worsening over the past 7 days). For context, (history of 3 sinus surgeries. states he has poor sinus drainage still and mucous stays stagnant as a result. prone to sinus infections.).ROS as noted in the HPI Fermin is a 65 year old M presenting with sinus pressure x 7 days. Kavon Levine MD [address] [facility] [address], [place], [address], [facility] 07/23/2025 16:34:17
--- OUTSIDE RECORDS SUMMARY | 2025-07-26 02:52 | XMS_ITS | Continuity of Care Document ---
Author Organization [facility], Main Office Address [address] [facility] [address] [place] [address] Care Team Providers Care Medical Assistant Dermatology Name Role Phone KAVON LEVINE Primary Care Provider [phone] MELBA MOORE Donor Relations Coordinator KRYS NAGY Covering Machine Operator TORRIE FINN Urologist [phone] CAMILLE ROBERT Infectious Disease [phone] GLADYS GALVAN Neurologist HUONG GARCIA Associate Professor Of Literature [phone] JACY VILLELA Phys. [facility] Re[facility] ELOY [place] Neurosurgeon [facility] Covering Machine Operator BRITTANI RAMIRES Orthopedic Surgeon Assessment No assessment recorded. Plan of Treatment Reminders Order Date Submit Date Provider Last Modified By Organization Details Last Modified Time Details Appointments FOLLOW UP 2025 10:45A Bernice Levine MD Not available Not available Not available Lab None recorded. Referral None recorded. Procedures None recorded. Surgeries None recorded. Imaging None recorded. Medication Orders amoxicill in 875 mg-potass ium clavulana te 125 mg tablet 2024 025 [id number], [address] [place], [place], [id number], 07/23/2025 11:04:01 Patient TargetsNo targets recorded. Patient Instructions Encounter Date Encounter Id Patient Instructions Last Modified By Organization Details Last Modified Time 07/23/2025 [id number] Chart reviewed, agree with above assessment and plan. [email or web address] Not available 07/23/2025 16:34:07 Reason for Referral None Reported. 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 13547213 Active Kavon Levine MD [address], [place], [address], [facility] 6 09:07:01 Lyme disease 45151254 Active Kavon Levine MD [address], [place], [address], [facility] 6 09:07:01 Panic attack 924729219 Completed 08/25/2022 Kavon Levine MD [address], [place], [address], [facility] 2 10:12:56 Environm ental allergy 287484199 Active Kavon Levine MD [address], [place], [address], [facility] 6 09:07:01 Body mass index 30+ - obesity 161996382 Completed 10/04/2017 Kavon Levine MD [address], [place], [address], [facility] 5 13:36:35 Contact dermatit is 09811840 Completed 10/04/2017 Kavon Levine MD [address], [place], [address], [facility] 8 10:48:55 Disorder of skin 23163199 Completed 04/23/2016 Kavon Levine MD [address], [place], [address], [facility] 6 09:07:01 Hyperpla stic polyp of intestin e 95787225 Active Kavon Levine MD [address], [place], [address], [facility] 6 09:07:01 Thromboc ytopenic disorder 560988642 Active Kavon Levine MD [address], [place], [address], [facility] 6 09:07:01 Urine microsco py: presence of cells - finding 988274646 Completed 09/23/2016 [place], [facility] 7 10:44:28 Actinic keratosi s 696189755 Completed 10/04/2017 Kavon Levine MD [address], [place], [address], [facility] 8 10:48:09 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 471386901 Active Kavon Levine MD [address], [place], [address], [facility] 6 09:07:01 Blood in urine 04185086 Completed 09/23/2016 [place], [facility] 7 10:44:09 Hypogona dism 50844405 Active Kavon Levine MD [address], [place], [address], [facility] 6 09:07:01 Upper abdomina l pain 63214451 Completed 09/23/2016 [place], [facility] 7 10:44:34 Gastroes ophageal reflux disease 158106331 Active Kavon Levine MD [address], [place], [address], [facility] 6 09:32:59 Hiatal hernia 63703615 Active Kavon Levine MD [address], [place], [address], [facility] 5 06:55:16 Chest wall pain 404072895 Completed 09/23/2016 Nelly delgadillo [place] [facility], [facility] 7 10:44:03 Advance directiv e giuseppe d with patient 122482229 Completed 10/04/2017 Kavon Levine MD [address], [place], [address], [facility] 8 10:47:20 Testicul ar hypofunc tion 500984260 Completed 201501/08/2025 Kavon Levine MD [address], [place], [address], [facility] 5 13:36:06 Obstruct milla sleep apnea syndrome 33195156 Active 2016 Kavon Levine MD [address], [place], [address], [facility] 7 22:31:33 Dysphagi a 53081938 Completed 201610/04/2017 Kavon Levine MD [address], [place], [address], [facility] 8 10:47:12 Insomnia 202657087 Active 2016 Kavon Levine MD [address], [place], [address], [facility] 7 11:41:51 Increase d liver function 87099232 Completed 201601/08/2025 Kavon Levine MD [address], [place], [address], [facility] 5 14:02:40 Divertic ular disease 999915961 Active 2017 Kavon Levine MD [address], [place], [address], [facility] 8 10:43:46 Greater trochant lashaun pain syndrome 6473720 Completed 201701/08/2025 Kavon Levine MD [address], [place], [address], [facility] 5 14:01:41 Hepatome maria elena 41999033 Active 2017 Kavon Levine MD [address], [place], [address], [facility] 8 12:58:09 Non-alco holic fatty liver 248132832 Active 2017 aKvon Levine MD [address], [place], [address], [facility] 8 12:58:18 Supraspi natus tendinit is 735889723 Completed 201701/08/2025 Kavon Levine MD [address], [place], [address], [facility] 5 14:03:02 Impingem ent syndrome of shoulder region 580873428 Active 2018 Kavon Levine MD [address], [place], [address], [facility] 9 12:26:13 Arthriti s of [place] lavicula r joint 501697944 Active 2018 Kavon Levine MD [address], [place], [address], [facility] 9 12:27:08 Adhesive capsulit is of right shoulder 94108287140 9109 Completed 201808/25/2022 Kavon Levine MD [address], [place], [place], [address], [facility] 2 10:05:25 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 0 12:50:37 Spinal stenosis in cervical region 63879760 Completed 202001/08/2025 mild C3-C4, mild impingem ent C5-C6 Kavon Levine MD [address], [place], [address], [facility] 5 13:36:03 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 58038235755 9100 Active 2020 Kavon Levine MD [address], [place], [address], [facility] 1 12:45:34 Tendinos is of left shoulder 66330733261 710497 Active 2021 Kavon Levine MD [address], [place], [address], [facility] 2 12:24:55 Herpes zoster 4969222 Completed 202108/25/2022 Removal Reason: resolved Kavon Levine MD [address], [place], [address], [facility] 2 10:06:35 History of herpes zoster 00224455265 9108 Active 2021 Kavon Levine MD [address], [place], [address], [facility] 2 10:06:18 Albuminu brock 851256104 Active 2022 Kavon Levine MD [address], [place], [address], [facility] 3 10:29:09 Cervical disc disorder 130048454 Active 2022 Kavon Levine MD [address], [place], [address], [facility] 3 20:14:38 Hypercal cemia 34323848 Completed 202204/09/2023 Kavon Levine MD [address], [place], [address], [facility] 3 07:47:51 Hypernat remia 212345494 Completed 202202/01/2023 Kavon Levine MD [address], [place], [address], [facility] 3 19:23:55 Hyperosm olality and or hypernat remia 539735401 Completed 202201/08/2025 Kavon Levine MD [address], [place], [address], [facility] 5 13:35:32 Peeling of skin 442346758 Completed 202201/08/2025 Kavon Levine MD [address], [place], [address], [facility] 5 13:35:57 Chronic kidney disease stage 1 951022337 Active 2022 [facility] 3 21:14:13 Cervical spondylo sis 186271153 Active 2022 Kavon Levine MD [address] [facility] [address], [place], [address], [facility] 3 11:12:29 Electroc ardiogra m abnormal 597436689 Active 2024 Kavon Levine MD [address] [facility] [address], [place], [address], [facility] 5 22:45:36 Body mass index 30+ - obesity 831516990 Active 2024 Kavon Levine MD [address] [facility] [address], [place], [address], [facility] 5 13:36:35 Elevated blood-pr essure reading without diagnosi s of hyperten werner 092691593 Completed 202401/08/2025 Kavon Levine MD [address] [facility] [address], [place], [address], [facility] 5 13:46:54 Impaired fasting glycemia 250132451 Active 2024 Kavon Levine MD [address] [facility] [address], [place], [address], [facility] 5 09:20:09 Enzyme level - finding 339349344 Active 2024 Kavon Levine MD [address] [facility] [address], [place], [address], [facility] 5 09:27:15 Asymptom atic proteinu brock 285072524 Active 2024 Kavon Levine MD [address] [facility] [address], [place], [address], [facility] 5 09:27:19 Esophage al dysphagi a 11941210 Active 2024 Kavon Levine MD [address] [facility] [address], [place], [address], [facility] 5 15:53:44 Strictur e of esophagu s 60867948 Active 2024 Kavon Levine MD [address] [facility] [address], [place], [address], [facility] 5 06:58:13 Esophage al dysmotil ity 832092588 Active 2024 Kavon Levine MD [address] [facility] [address], [place], [address], [facility] 5 06:58:14 Bilatera l ulnar nerve disorder 67113300407 706508 Active 2024 Kavon Levine MD [address] [facility] [address], [place], [address], [facility] 5 08:59:25 Acute bacteria l sinusiti s 84541940 Active 2024 [facility] [address] [place] [address], [place], [address], [facility] 5 10:52:28 Wheezing symptom 634242447 Active 2024 ADIAEDDIE DE [facility] [address] [place] [address], [place], [address], [facility] 5 10:55:46 Problem Notes None recorded. Procedures Surgical History Date Name Laterality Status Provider Name and Address Organization Details Recorded Time 025 total shoulder replacement completed Alicia Ardon MA [facility] 01/08/2025 13:15:49 023 excision of cervical intervertebral disc completed Kavon Levine MD [address] [facility] [address], [place], [address], [facility] 11/06/2023 19:57:20 023 epidural injection of cervical spine using fluoroscopic guidance completed Kavon Levine MD [address] [facility], [place], [address], [facility] 04/02/2023 08:18:38 022 Colonoscopy completed Kavon Levine MD [address] [facility], [place], [address], [facility] 08/26/2022 15:03:15 020 procedure on shoulder completed Raiza Hernandez [facility] 09/12/2019 14:46:53 019 shoulder injection completed Khadijah Leger [facility] 10/11/2018 12:28:47 018 Echo transthoracic completed Kavon Levine MD [address] [facility] [address] [facility], [place], [address], [facility] 04/08/2018 09:52:55 018 Cardiovascular stress test completed Kavon Levine MD [address] [facility] [address] [facility], [place], [address], [facility] 04/08/2018 09:53:34 017 Joint Injection completed Kwaku Shah MD [address] [facility], [place], [address], [facility] 09/23/2016 11:47:24 016 Advanced Care Planning completed Kavon Levine MD [address] [facility], [place], [address], [facility] 04/23/2016 09:32:40 012 EGD completed Kavon Levine MD [address], [address], [facility] 03/08/2016 14:18:51 000 Orthopedic Surgery completed Kavon Levine MD [address] [address], [place], [address], [facility] 04/23/2016 09:05:07 997 Vasectomy completed Nae Betancur [place] [facility] 04/18/2015 13:00:16 996 ENT Surgery completed Kavon Levine MD [address], [place], [address], [facility] 04/18/2015 13:39:38 996 Hemorrhoidectomy completed Nae Betancur [place] [facility] 04/18/2015 13:00:16 982 Tonsillectomy completed Nae Betancur [facility] 04/18/2015 13:00:15 Cystourethroscopy completed Kavon Levine MD [address] [facility] [address], [place], [address], [facility] 09/11/2016 12:15:53 Imaging Results None recorded. Procedure Notes None recorded. Medical Equipment None Reported. Allergies Allergen ID Allergen Name Allergen Category Reaction Reaction Severity Criticality Documentation Date Start Date Code Code System Note Provider Name and Address Organization Details Recorded Time Demerol medicatio n nausea Not available Not available 04/18/2015 64389 1 RxNorm [facility] [place] [facility] 2 10:58:48 22366 Substance with sulfonami de structure and antibacte rial mechanism of action (substanc e) medicatio n fever nausea Not available Not available Not available 04/18/2015 31578 8003 SNOMED Nae Adamclaudia [place] [facility] 2 10:58:47 62183 Cipro medicatio n other Not available Not available 04/18/2015 88048 3 RxNorm Nae Betancur [place] [facility] 2 10:58:42 63216 meperidin e medicatio n Not available Not available Not available 07/23/2025 6754 RxNorm Not Available thomas - External [employer] - prod 5 09:57:59 06618 ciproflox acin medicatio n Not available Not available Not available 07/23/20252013 2551 RxNorm Not Available thomas - External [employer] - prod 09:58:00 Medications Name Sig Start Date Stop [...] Not Available Not Available Not Available Afluria (PF) 45 mcg(15 mcg x 3)/0.5 mL intramuscu lar syringe 09/11 completed Not Available Not Available Not Available Fish Oil 1,000 mg (120 mg-180 mg) capsule Take 1 capsule every day by oral route. active Not Available Not Available No t Available Flucelvax Quad (PF) 60 mcg (15 mcg x 4)/0.5 [...] Updated DateTime 5 167.64 cm 32 kg/m2 00402.6 9 g 98 % 98 % 86 /min 98.4 [degF] 131/83 mm[Hg] Lyndsay Mccauley [place] [facility] 5 10:38:58 Social History Question Answer Notes LastModified by Organizat ion Details LastModified Time Tobacco Smoking Status Never Smoker [place] [facility] 04/18/2015 13:02:45 Do You Have An Advance Directive? Yes HCP/ Nia Wilhelm [email or web address] Information not available 01/23/2022 Is Blood Transfusion [...] available 04/18/2015 Seat Belts Used Routinely Yes [email or web address] Information not available 01/23/2022 Are You Sexually Active? 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 YESWOREST Information not available 08/25/2022 Are you able to care for yourself independently? Yes Information not available 04/18/2015 What is your occupation? [employer] Fully Retired from both jobs on 12/21/2024 Information not available 01/08/2025 What is your exercise level? Moderate Information not available 01/27/2016 Mental Status None recorded. Family History Relationship Description Onset Age of this Age Resolved Age Notes LastModified by Organization Details LastModified Time Father Diabetes mellitus [email or web address] Not available 04/23 09:09:47 Father Malignant neoplastic disease lympho ma [email or web address] Not available 01/23/2022 08:17:41 Brother Malignant neoplastic disease thyroi d [email or web address] Not available 01/23/2022 08:17:41 Brother Disorder of thyroid gland [email or web address] Not available 04/23 09:09:47 Maternal Grandmother Dementia [email or web address] Not available 09:09:47 Son Well adult [email or web address] Not avail able 01/23/2022 08:17:41 Mother Dementia 80 [email or web address] Not availab le 08/25/2022 10:07:42 Medical History Condition Response Other N Gout N Blood Diseases N Kidney Stones N Hyperthyroidism N Breast Cancer N Lung Disease N COPD N Depression N Hypothyroidism N Defects or Inherited Disease [...] Problems N GI Problems Y Acne N Skin Problems N Eating Disorder N Anemia N Constipation N Bladder Problems Y Mental Illness N Ovarian Cancer N Diabetes N Blood Transfusions N Seizures/Epilepsy N Tuberculosis N AIDS/HIV N Congestive Heart Failure (CHF) N Eczema N Diverticulitis N Abuse/Domestic Violence N Allergies N Asthma N Reflux/GERD N Hepatitis N Pulmonary Embolism N Hypertension N Osteoporosis N Chicken Pox N Autism Spectrum Disorder (ASD) N Immunizations Vaccine Type Date Status Note Provider Nam e and Address Organization Details Recorded Time Influenza, split virus, quadrivalent, preservative 6 completed Not Available [facility] 04/01/2023 10:02:27 Influenza, split virus, quadrivalent, preservative 7 completed Not Available [facility] 04/01/2023 10:02:27 zoster recombinant 9 completed [place] [facility] [facility] 01/05/2022 09:09:29 COVID-19, mRNA, LNP-S, PF, 100 mcg/0.5mL dose or 50 mcg/0.25mL dose 1 completed [place] [facility] 01/05/2022 09:09:29 zoster recombinant 9 completed [place] [facility] [facility] 01/05/2022 09:09:29 MMR 8 completed [place] [facility] 01/05/2022 09:09:29 Influenza, split virus, trivalent, preservative 3 completed [place] [facility] [facility] 01/05/2022 09:09:29 COVID-19, mRNA, LNP-S, PF, 100 mcg/0.5mL dose or 50 mcg/0.25mL dose 1 completed [place] [facility] [facility] 01/05/2022 09:09:29 Influenza, split virus, quadrivalent, preservative 5 completed [place] [facility] 01/05/2022 09:09:29 COVID-19, mRNA, LNP-S, PF, 100 mcg/0.5mL dose or 50 mcg/0.25mL dose 1 completed [place] [facility] [facility] 01/05/2022 09:09:29 MMR 8 completed [place] [facility] [facility] 01/05/2022 09:09:29 Influenza, split virus, trivalent, PF 6 completed [place] [facility] [facility] 01/05/2022 09:09:29 COVID-19, mRNA, LNP-S, PF, 100 mcg/0.5mL dose or 50 mcg/0.25mL dose 2 completed [place] [facility] [facility] 01/05/2022 09:09:29 Influenza, MDCK, quadrivalent, PF 7 completed [place] [facility] [facility] 01/05/2022 09:09:29 Influenza, split virus, quadrivalent, PF 8 completed [place] [facility] 01/05/2022 09:09:29 Influenza, split virus, quadrivalent, PF 1 completed [place] [facility] 01/05/2022 09:09:29 Tdap 5 completed [place] [facility] 06/17/2022 13:32:56 Influenza, split virus, trivalent, PF 4 completed [place] [facility] 11/04/2024 09:54:46 Pneumococcal conjugate PCV20, polysaccharide BIN145 conjugate, adjuvant, PF 5 completed Not Available [facility] 07/23/2025 10:27:06 Tdap 5 completed Not Available [facility] 07/23/2025 10:27:06 Past Encounters Encounter ID Performer Location Encounter Start Date Encounter Closed Date Diagnosis/Indication Diagnosis SNOMED-CT Code Diagnosis ICD10 Code Diagnosis IMO Codes Diagnosis Note [id number] Kavon Levine MD Main Office [address] [facility] [address] [facility] [place] [address] 07/23/2025 10:25:59 07/23/2025 11:08:12 Acute bacterial sinusitis 19947538 J01.90 B96.89 41026 - Patient describes worsening sinus pressure, congestion [...] by Organization Details LastModified Time None Recorded Payers Encounter Date Sequence Insurance Name Policy Number Policy Vargas Covered Member ID Vargas Member ID Guarantor Name 07/23/2025 1 [facility]: NETWORK BLUE - O [facility] [place] [place] [id number] [facility] [id number] Fermin Bunn [facility] Notes Date Note Type Note Provider Name and Address Organization Details Recorded Time 07/23/2025 text/html Upper Respirator y SymptomsReported by PatientUpper Respiratory SymptomsFor quality, patient [...] pressure x 7 days. Kavon Levine MD [address] [address], [place], [address], [facility] 07/23/2025 16:34:17
== END 2025-07-25 14:22 | disposition home or self-care (01) ==
LOC: HO.HMGAL 14:22
PROVIDERS: PCP Pediatrics; Visit Provider Registered Nurse Emergency
DX: J30.89 Other allergic rhinitis (principal)
CPT/HCPCS: 95117; 95165

== ENCOUNTER 2025-08-22 14:00 | Outpatient (AMB) | payer BC, SELFPAY ==
--- OUTSIDE RECORDS SUMMARY | 2025-05-14 07:40 | XMS_ITS ---
Author Organization [facility] Address [address] [place] [phone] Care Team Providers Care Music Professor Name Role Phone Erica MAJANO, Kavon Primary Care Provider Anant Arnold [phone] REASON FOR VISIT dysphagia,gerd,abn barium swallow Encounters Encounter Location Date Provider Diagnosis [facility] [place] [address] [place] [phone] 05/14/2025 Anant Worthy Plan Of Treatment No Information Progress Notes * APARNA ANDRADEDOB:1960 (65 yo M)Acc No.[id number]:05/14/2025 EGD/MAC Patient: APARNA BONILLA Provider: Cynthia Worthy MD :1960 A ge:64 Y S ex:Male Date:05/14/2025 Address:[address] [place], [place] [phone] Pcp:Kavon Maldonado MD Subjective: * Chief Complaints: * D ysphagia,gerd,abn barium swallow Billing Information: * Procedure Codes: * The named appointment provid er may or may not be the originator of this progress note, and it is not deemed complete until electronically signed by the appointment provider. Sign off status: Pending * Provider: Cynthia Worthy MD Date: 0 05/14/2025 Generated for Shayy toussaint/Tad/eTransmitting on: 1 10/23/2024 06:35 PM EST
--- OUTSIDE RECORDS SUMMARY | 2025-08-22 18:36 | XMS_ITS | Continuity of Care Document ---
Author Organization [facility], Main Office Address [address] [facility] [address] [place] [address] Care Team Providers Care Waxer Tender Name Role Phone KAVON LEVINE Primary Care Provider [phone] MELBA MOORE Senior Sharepoint Architect KYRS NAGY U.S. Representative TORRIE FINN Urologist [phone] CAMILLE ROBERT Infectious Disease [phone] GLADYS GALVAN Neurologist HUONG GARCIA Inspector [employer] Installations [phone] JACY VILLELA Phys. Med. & Rehab [phone] ELOY [place] Neurosurgeon [facility] U.[place]. Representative [phone] BRITTANI RAMIRES Orthopedic Surgeon [phone] Assessment No assessment recorded. Plan of Treatment Reminders Order Date Submit Date Provider Last Modified By Organization Details Last Modified Time Details Appointments FOLLOW UP 2025 10:45A Bernice Levine MD Not available Not available Not available PE EST 2025 08:30A Bernice Levine MD Not available Not available Not available Lab None recorded. Referral None recorded. Procedures None recorded. Surgeries None recorded. Imaging None recorded. Medication Orders lisinopri l 20 mg tablet 2024 025 [facility], [facility], [place], [address], 06/21/2025 13:27:29 Patient TargetsNo targets recorded. Patient Instructions Encounter Date Encounter Id Patient Instructions Last Modified By Organization Details Last Modified Time 06/21/2025 [id number] body mass index: care instructions moni Not available 06/21/2025 13:27:27 learning about healthy weight moni Not available 06/21/2025 13:27:27 Reason for Referral None Reported. Results Created Date Observation Date Name Description Value Unit Range Abnormal Flag Note LastModifiedBy Organization Detail LastModifiedTime 06/14/2006/13/2025 elect romyo gram + nerve condu ction study No observ ation record ed. moni [facility] [address] [facility], [place], [address], 06/21/2025 13:19:29 Result Notes None recorded. 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 44585101 Active Kavon Levine MD [address] [address], [place], [address], [facility] 6 09:07:01 Lyme disease 48804479 Active Kavon Levine MD [address] [address], [place], [address], [facility] 6 09:07:01 Panic attack 170015160 Completed 08/25/2022 Kavon Levine MD [address] [address], [place], [address], [facility] 2 10:12:56 Environm ental allergy 864748733 Active Kavon Levine MD [address] [address], [place], [address], [facility] 6 09:07:01 Body mass index 30+ - obesity 716092111 Completed 10/04/2017 Kavon Levine MD [address], [place], [address], [facility] 5 13:36:35 Contact dermatit is 98829844 Completed 10/04/2017 Kavon Levine MD [address], [place], [address], [facility] 8 10:48:55 Disorder of skin 47354625 Completed 04/23/2016 Kavon Levine MD [address], [place], [address], [facility] 6 09:07:01 Hyperpla stic polyp of intestin e 27730217 Active Kavon Levine MD [address], [place], [address], [facility] 6 09:07:01 Thromboc ytopenic disorder 049491117 Active Kavon Levine MD [address], [place], [address], [facility] 6 09:07:01 Urine microsco py: presence of cells - finding 815644752 Completed 09/23/2016 Nelly delgadillo [place] null, [facility] 7 10:44:28 Actinic keratosi s 878483093 Completed 10/04/2017 Kavon Levine MD [address], [place], [address], [facility] 8 10:48:09 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 837113457 Active Kavon Levine MD [address], [place], [address], [facility] 6 09:07:01 Blood in urine 25520091 Completed 09/23/2016 [place] Vergara, [facility] 7 10:44:09 Hypogona dism 31963966 Active Kavon Levine MD [address], [place], [address], [facility] 6 09:07:01 Upper abdomina l pain 25822238 Completed 09/23/2016 [place] Vergara, [facility] 7 10:44:34 Gastroes ophageal reflux disease 731158228 Active Kavon Levine MD [address], [place], [address], [facility] 6 09:32:59 Hiatal hernia 56685837 Active Kavon Levine MD [address], [place], [address], [facility] 5 06:55:16 Chest wall pain 384353916 Completed 09/23/2016 [place] Vergara, [facility] 7 10:44:03 Advance directiv e discusse d with patient 429850286 Completed 10/04/2017 Kavon Levine MD [address], [place], [address], [facility] 8 10:47:20 Testicul ar hypofunc tion 331498211 Completed 201501/08/2025 Kavon Levine MD [address], [place], [address], [facility] 5 13:36:06 Obstruct milla sleep apnea syndrome 55624159 Active 2016 Kavon Levine MD [address], [place], [address], [facility] 7 22:31:33 Dysphagi a 37997779 Completed 201610/04/2017 Kavon Levine MD [address], [place], [address], [facility] 8 10:47:12 Insomnia 960357800 Active 2016 Kavon Levine MD [address], [place], [address], [facility] 7 11:41:51 Increase d liver function 12587993 Completed 201601/08/2025 Kavon Levine MD [address], [place], [address], [facility] 5 14:02:40 Divertic ular disease 784020100 Active 2017 Kavon Levine MD [address], [place], [address], [facility] 8 10:43:46 Greater trochant lashaun pain syndrome 8999498 Completed 201701/08/2025 Kavon Levine MD [address], [place], [address], [facility] 5 14:01:41 Hepatome maria elena 80817532 Active 2017 Kavon Levine MD [address], [place], [address], [facility] 8 12:58:09 Non-alco holic fatty liver 416803259 Active 2017 Kavon Levine MD [address], [place], [address], [facility] 8 12:58:18 Supraspi natus tendinit is 563076247 Completed 201701/08/2025 Kavon Levine MD [address], [place], [address], [facility] 5 14:03:02 Impingem ent syndrome of shoulder region 082897143 Active 2018 Kavon Levine MD [address], [place], [address], [facility] 9 12:26:13 Arthriti s of acromioc lavicula r joint 664845859 Active 2018 Kavon Levine MD [address], [place], [address], [facility] 9 12:27:08 Adhesive capsulit is of right shoulder 92848431626 9109 Completed 201808/25/2022 Kavon Levine MD [address], [place], [address], [facility] 2 10:05:25 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 073084330 Active 2019 Kavon Levine MD [address], [place], [address], [facility] 0 12:50:37 Spinal stenosis in cervical region 18462898 Completed 202001/08/2025 mild C3-C4, mild impingem ent C5-C6 Kavon Levine MD [address], [place], [address], [facility] 5 13:36:03 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 69811768591 9100 Active 2020 Kavon Levine MD [address], [place], [address], [facility] 1 12:45:34 Tendinos is of left shoulder 18061100749 465742 Active 2021 Kavon Levine MD [address], [place], [address], [facility] 2 12:24:55 Herpes zoster 9290946 Completed 202108/25/2022 Removal Reason: resolved Kavon Levine MD [address], [place], [address], [facility] 2 10:06:35 History of herpes zoster 73828771060 9108 Active 2021 Kavon Levine MD [address], [place], [address], [facility] 2 10:06:18 Albuminu brock 036941881 Active 2022 Kavon Levine MD [address], [place], [address], [facility] 3 10:29:09 Cervical disc disorder 504973591 Active 2022 Kavon Levine MD [address], [place], [address], [facility] 3 20:14:38 Hypercal cemia 63378847 Completed 202204/09/2023 Kavon Levine MD [address], [place], [address], [facility] 3 07:47:51 Hypernat remia 869095909 Completed 202202/01/2023 Kavon Levine MD [address], [place], [address], [facility] 3 19:23:55 Hyperosm olality and or hypernat remia 604214144 Completed 202201/08/2025 Kavon Levine MD [address], [place], [address], [facility] 5 13:35:32 Peeling of skin 697344054 Completed 202201/08/2025 Kavon Levine MD [address] [facility] [address], [place], [address], [facility] 5 13:35:57 Chronic kidney disease stage 1 911890431 Active 2022 [facility] 3 21:14:13 Cervical spondylo sis 668158435 Active 2022 Kavon Levine MD [address] [address], [place], [address], [facility] 3 11:12:29 Electroc ardiogra m abnormal 633793869 Active 2024 Kavon Levine MD [address] [address], [place], [address], [facility] 5 22:45:36 Body mass index 30+ - obesity 112583643 Active 2024 Kavon Levine MD [address] [address], [place], [address], [facility] 5 13:36:35 Elevated blood-pr essure reading without diagnosi s of hyperten werner 810206544 Completed 202401/08/2025 Kavon Levine MD [address] [address], [place], [address], [facility] 5 13:46:54 Impaired fasting glycemia 854291720 Active 2024 Kavon Levine MD [address] [address], [place], [address], [facility] 5 09:20:09 Enzyme level - finding 223978142 Active 2024 Kavon Levine MD [address], [place], [address], [facility] 5 09:27:15 Asymptom atic proteinu brock 649079141 Active 2024 Kavon Levine MD [address], [place], [address], [facility] 5 09:27:19 Esophage al dysphagi a 36247268 Active 2024 Kavon Levine MD [address], [place], [address], [facility] 5 15:53:44 Strictur e of esophagu s 99897180 Active 2024 Kavon Levine MD [address], [place], [address], [facility] 5 06:58:13 Esophage al dysmotil ity 978036923 Active 2024 Kavon Levine MD [address], [place], [address], [facility] 5 06:58:14 Bilatera l ulnar nerve disorder 14532906352 550565 Active 2024 Kavon Levine MD [address], [place], [address], [facility] 5 08:59:25 Acute bacteria l sinusiti s 33065597 Completed 202408/22/2025 Kavon Levine MD [address], [place], [address], [facility] 5 07:23:39 Wheezing symptom 038301208 Active 2024 ADIA SÁNCHEZ, [facility]- [address], [place], [address], [facility] 10:55:46 Problem Notes None recorded. Procedures Surgical History Date Name Laterality Status Provider Name and Address Organization Details Recorded Time 025 total shoulder replacement completed Alicia Ardon MA [facility] 01/08/2025 13:15:49 023 excision of cervical intervertebral disc completed Kavon Levine MD [address], [address], [facility] 11/06/2023 19:57:20 023 epidural injection of cervical spine using fluoroscopic guidance completed Kavon Levine MD [address], [address], [facility] 04/02/2023 08:18:38 022 Colonoscopy completed Kavon Levine MD [address], [address], [facility] 08/26/2022 15:03:15 020 procedure on shoulder completed Raiza Hernandez [facility] 09/12/2019 14:46:53 019 shoulder injection completed Khadijah Leger [facility] 10/11/2018 12:28:47 018 Echo transthoracic completed Kavon Levine MD [address], [address], [facility] 04/08/2018 09:52:55 018 Cardiovascular stress test completed Kavon Levine MD [address], [address], [facility] 04/08/2018 09:53:34 017 Joint Injection completed Kwaku Shah MD [address], [address], [facility] 09/23/2016 11:47:24 016 Advanced Care Planning completed Kavon Levine MD [address] [address], [place], [address], [facility] 04/23/2016 09:32:40 012 EGD completed Kavon Levine MD [address] [facility] [address] [facility], [place], [address], [facility] 03/08/2016 14:18:51 000 Orthopedic Surgery completed Kavon Levine MD [address] [facility] [address] [facility], [place], [address], [facility] 04/23/2016 09:05:07 997 Vasectomy completed Nae Betancur MA [facility] 04/18/2015 13:00:16 996 ENT Surgery completed Kavon Levine MD [address] [address], [place], [address], [facility] 04/18/2015 13:39:38 996 Hemorrhoidectomy completed Nae Betancur MA [facility] 04/18/2015 13:00:16 982 Tonsillectomy completed Nae Betancur MA [facility] 04/18/2015 13:00:15 Cystourethroscopy completed Kavon Levine MD [address] [address], [place], [address], [facility] 09/11/2016 12:15:53 Imaging Results None recorded. Procedure Notes None recorded. Medical Equipment None Reported. Allergies Allergen ID Allergen Name Allergen Category Reaction Reaction Severity Criticality Documentation Date Start Date Code Code System Note Provider Name and Address Organization Details Recorded Time Demerol medicatio n nausea Not available Not available 04/18/2015 56842 1 [facility] 10:58:48 46723 Substance with sulfonami de structure and antibacte rial mechanism of action (substanc e) medicatio n fever nausea Not available Not available Not available 04/18/2015 37116 8003 SNOMED Nae Redmann, [place] there[place], [facility] 2 10:58:47 47806 Cipro medicatio n other Not available Not available 04/18/201503035 3 RxNorm Nae Medinaclaudia [place] saleh, [facility] 2 10:58:42 78783 meperidin e medicatio n Not available Not available Not available 07/23/2025 6754 RxNorm Not Available [employer] [facility] 5 09:57:59 16760 ciproflox acin medicatio n Not available Not available Not available 07/23/20252013 2551 RxNorm Not Available [employer] [facility] 5 09:58:00 Medications [...] mg tablet TAKE 1 TABLET AT BEDTIME 2024 active Not Available Not Available Not Avai lable oseltamivi r 75 mg capsule TAKE 1 [...] oral route as directed for 7 days. 08/06 completed Not Available Not Available Not Available [...] (BMI) Body weight Heart rate Oxygen saturation Body temperature Systolic And Diastolic Systolic And Diastolic Provider Name and Address Organization Details Last Updated DateTime 5 167.64 cm 31.9 kg/m2 63911.5 g 100 /min 98 % 98.7 [degF] 147/100 mm[Hg] 132/92 mm[Hg] Alicia Ardon MA [facility] 5 13:12:50 Social History Question Answer Notes LastModified by Organizat ion Details LastModified Time Tobacco Smoking Status Never Smoker [place] Cardenas, [facility] 04/18/2015 13:02:45 Do You Have An Advance Directive? Yes HCP/ Nia Wilhelm [email or web address] Information not available 01/23/2022 Is Blood Transfusion [...] available 04/18/2015 Seat Belts Used Routinely Yes [email or web address] Information not available 01/23/2022 Are You Sexually Active? 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 [email or web address] Information not available 08/25/2022 Are you able to care for yourself independently? Yes Information not available 04/18/2015 What is your occupation? [employer] Fully Retired from both jobs on 12/21/2024 Information not available 01/08/2025 What is your exercise level? Moderate Information not available 01/27/2016 Mental Status None recorded. Family History Relationship Description Onset Age of this Age Resolved Age Notes LastModified by Organization Details LastModified Time Father Diabetes mellitus [email or web address] Not available 04/23 09:09:47 Father Malignant neoplastic disease lympho ma [email or web address] Not available 01/23/2022 08:17:41 Brother Malignant neoplastic disease thyroi d [email or web address] Not available 01/23/2022 08:17:41 Brother Disorder of thyroid gland [email or web address] Not available 04/23 09:09:47 Maternal Grandmother Dementia [email or web address] Not available 09:09:47 Son Well adult Not avail able 01/23/2022 08:17:41 Mother Dementia [...] virus, quadrivalent, preservative 6 completed Not Available [facility] 04/01/2023 10:02:27 Influenza, split virus, quadrivalent, preservative 7 completed Not Available [facility] 04/01/2023 10:02:27 zoster recombinant 9 completed [place] Cardenas [facility] 01/05/2022 09:09:29 COVID-19, mRNA, LNP-S, PF, 100 mcg/0.5mL dose or 50 mcg/0.25mL dose 1 completed [place] Cardenas [facility] 01/05/2022 09:09:29 zoster recombinant 9 completed [place] Cardenas [facility] 01/05/2022 09:09:29 MMR 8 completed [place] Cardenas [facility] 01/05/2022 09:09:29 Influenza, split virus, trivalent, preservative 3 completed [place] Cardenas [facility] 01/05/2022 09:09:29 COVID-19, mRNA, LNP-S, PF, 100 mcg/0.5mL dose or 50 mcg/0.25mL dose 1 completed [place] Cardenas [facility] 01/05/2022 09:09:29 Influenza, split virus, quadrivalent, preservative 5 completed [place] Cardenas [facility] 01/05/2022 09:09:29 COVID-19, mRNA, LNP-S, PF, 100 mcg/0.5mL dose or 50 mcg/0.25mL dose 1 completed [place] Carden[place] [facility] 01/05/2022 09:09:29 MMR 8 completed [place] Carden[place] [facility] 01/05/2022 09:09:29 Influenza, split virus, trivalent, PF 6 completed [place] Carden[place] [facility] 01/05/2022 09:09:29 COVID-19, mRNA, LNP-S, PF, 100 mcg/0.5mL dose or 50 mcg/0.25mL dose 2 completed [place] C[place] [facility] 01/05/2022 09:09:29 Influenza, MDCK, quadrivalent, PF 7 completed [place] Carden[place] [facility] 01/05/2022 09:09:29 Influenza, split virus, quadrivalent, PF 8 completed [place] Cardenas [facility] 01/05/2022 09:09:29 Influenza, split virus, quadrivalent, PF 1 completed [place] Cardenas [facility] 01/05/2022 09:09:29 Tdap 5 completed [place] Marie [facility] 06/17/2022 13:32:56 Influenza, split virus, trivalent, PF 4 completed [place] Marie MA [facility] 11/04/2024 09:54:46 Pneumococcal conjugate PCV20, polysaccharide [id number] conjugate, adjuvant, PF 5 completed Not Available [facility] 07/23/2025 10:27:06 Tdap 5 completed Not Available [facility] 07/23/2025 10:27:06 Past Encounters Encounter ID Performer Location Encounter Start Date Encounter Closed Date Diagnosis/Indication Diagnosis SNOMED-CT Code Diagnosis ICD10 Code Diagnosis IMO Codes Diagnosis Note [id number] Kavon Levine MD Main Office [address] [facility] [place] [address] 06/21/2025 12:46:49 06/21/2025 13:34:11 Body mass index 30+ - obesity 102461967 E66.9 Z68.32 Carries weight related comorbidit ies. Will try nutritiona l counseling . If unsuccessf ul and ins covers he will be a candidate for GLP1 agonist therapy. Esophageal dysphagia 408 83882 R13.19 8211 Resolved post dilation. On high dose PPI. Bilateral ulnar nerve disorder [id number] 0521223 G56.23 [id number] Has appt with Dr. Manuel next week Hypertensi ve renal disease 26761131 I12.9 Well controlled , continue current regimen. Obstructiv e sleep apnea syndrome 75351151 G47.33 Unable to tolerate CPAP. Health Concerns Section Related Observation LastModified by Organization Detai ls LastModified Time None Recorded Concern Status LastModified by Organization Details LastModified Time None Recorded Payers Encounter Date Sequence Insurance Name Policy Number Policy Vargas Covered Member ID Vargas Member ID Guarantor Name 06/21/2025 1 [employer] NETWORK BLUE - O [facility] (O) [id number] Fermin Wilhelm [id number] Fermin Wilhelm Notes Date Note Type Note Provider Name and Address Organization Details Recorded Time 06/21/2025 text/html Musculoskeletal PainReported by PatientHPIFor location, patient [...] diet as primary therapy.Has been working with data consultant at [facility]. Kavon Levine MD [address], [address], [facility] 06/21/2025 13:32:35
--- OUTSIDE RECORDS SUMMARY | 2025-08-22 18:36 | XMS_ITS | Patient Health Record ---
Author Organization [facility] Address [address] [facility] [address] [place] [address] Care Team Providers Care Demolition Engineer Name Role Phone Erica MAJANO, Kavon Primary Care Provider Unavail able Anant Worthy Unavailable [phone] Allergies Allergen (clinical drug ingredient) Drug/Non Drug Allergy documented on EMR Reaction Allergy Type Onset Date Status meperidine Demerol Unknown Drug Allergy Active Substance with sulfonamide structure and antibacterial mechanism of action (substance) Sulfa Antibiotics Unknown Drug Allergy Active Results Component Value Reference Range Notes Pathology (Not yet reviewed by provider) Interpretation: Performing Lab:[facility], [address] [place] [address] Notes/Report: Reason For Referral Referring Provider First Name Kavon Referring Provider Last Name Erica Referring Provider Speciality Internal M edicine Referred Organization [facility] Referred Provider Anant Worthy Referred Address [address] [place] [address], [address] [place] [address],[place] Referred Provider Specialty Gastroentero logy General Notes Sushma Steven 2024 09:30:10 AM >DR LEVINE'S OFFICE SENT REFERRA DATED 04-19-25 IT NEEDED TO BE DATED 04-18-25 PLEASE REQUEST ANOTHER REFERRAL FOR DOS 04-18-25 [phone] THE OTHER REFERRAL THEY SENT IS OKAY FOR THE UPCOMING PROCEDURE. Referral Priority Routine Referring Provider First Name Kavon Referring Provider Last Name Erica Referring Provider Speciality Internal M edicine Referred Organization [facility] Referred Provider Anant Worthy Referred Address [address] [facility],[address],[place], [place],[address],[place] Referred Provider Specialty Gastroentero logy General Notes Sushma Steven 2024 01:32:45 PM >left message for pt to get an hmo blue referral from his pcp for his apptwith Dr. Worthy on [phone] [facility], Sushma Steven 04/19/2025 09:05:17 AM >Spoke with Marlene at [facility] and requested an hmo blue referral [...] 24 Hour Oral; Duration: 90 Active Nystatin 028116 UNIT/ML Suspension 4 ml Mouth/Throat two-three times [...] Status Risk Notes Problem Colon cancer screening (667634179) Colon cancer screening (Z12.11) Active confirmed Problem Dysphagia (17988350) Dysphagia (R13.10) Active confirmed Problem Gastroesophageal reflux disease without esophagitis (996070409) Gastroesophageal reflux disease without esophagitis (K21.9) Active confirmed Problem Preprocedural examination (313236176438618) Preprocedural examination (Z01.818) Active confirmed Problem Barium swallow abnormal (376932704) Abnormal barium swallow (R93.3) Active confirmed Problem Generalized abdominal pain (504508027) Abdominal pain, generalized (R10.84) Active confirmed Problem Diverticulosis of colon (314301163) Diverticulosis of colon (K57.30) Active confirmed Vital [...] Provider Diagnosis [facility] [address] [place] [phone] 05/14/2025 Anant Worthy [facility] [address] [place] [address] 04/18/2025 Anant Worthy Gastroesophageal ref lux disease without esophagitis K21.9 ; Dysphagia R13.10 ; Abnormal barium swallow R93.3 and Colon cancer screening Z12.11 [facility] [address] [place] [address] 01/10/2025 Anant Worthy [facility] [address] [place] [address] 04/18/2025 Anant Worthy [facility] [address] [place] [address] 05/15/2025 Anant Worthy Assessments Encounter Date Diagnosis [...] Insured Coverage Start Date Coverage End Date [employer] [address] [place] [address] [id number] [address] Self - patient is the insured Medical (General) History Medical History History ICD Code EGD 12/23/2011-negative for a ny significant esophagitis, Julian's esophagus, nor hiatal hernia; EGD in 2012 was neg. as well- no H.pylori, no celiac disease Fatty liver-liver biopsy in 2003- mild inflammation and fibrosis- -neg. liver w/u otherwise GERD Denies ME,DM,CVA,Lung disease,renal dise ase Negative screening colonosco py in 07/2012 except for a hyperplastic polyp and mild diverticulosis Lyme disease- Stage III - s ees ID physician in [place]- Dr. Aparicio- on antibiotics--Plaquenil and Cefdinir as [...] erse replacement in September 2024--Dr. Castle at [facility]
--- OUTSIDE RECORDS SUMMARY | 2025-08-22 18:36 | XMS_ITS | Data Portability ---
Author Organization [facility] Mehdi Umana [facility] [place] Address [address] [place] [address] Care Team Providers Care Repeat Chief Name Role Phone CASTROKINGNEFTALICLIFFORD Primary Care Provider [...] view 2023 024 [email or web address] [facility], [address], [place], [address], 4 11:04:55 XR, shoulder, 2 or more view 2022 023 [facility], [address], [place], [address], 3 11:29:20 Medication Orders lidocaine (PF) 10 mg/mL (1 %) injection solution 2023 024 [email or web address] Not available 4 12:28:58 triamcinolo ne acetonide 40 mg/mL suspension for injection 2023 024 [email or web address] Not available 4 12:28:58 lidocaine (PF) 10 mg/mL (1 %) injection solution 2023 024 [email or web address] [facility]77579, [address] [place] [address], [id number], 4 11:04:55 triamcinolo ne acetonide 40 mg/mL suspension for injection 2023 024 [email or web address] [facility] #25493, [address], [place], [id number], 4 11:04:55 Kenalog 40 mg/mL suspension for injection [address] [facility]01926, [address] [place] [address], [id number], 4 09:51:42 lidocaine (PF) 10 mg/mL (1 %) injection solution [address] [facility] #55598, [address] [place] [address], [id number], 4 09:51:42 Kenalog 40 mg/mL suspension for injection [address] [facility] #13652, [address] [place] [address], [id number], 4 09:51:42 lidocaine (PF) 10 mg/mL (1 %) injection solution [address] [facility] #43480, [address] [place] [address], [id number], 4 09:51:42 Kenalog 40 mg/mL suspension for injection 2022 023 [facility]065[facility], [address] [place] [address], [id number], 3 09:43:56 Marcaine (PF) 0.5 % (5 mg/mL) injection solution [address] [facility] [facility] #95704, [address] [place] [address], [id number], 3 09:43:56 lidocaine (PF) 20 mg/mL (2 %) injection solution [address] [facility] #71347, [address] [place] [address], [id number], 3 09:43:56 Kenalog 40 mg/mL suspension for injection [address] [facility] #20048, [address] [place] [address], [id number], 3 09:43:56 Marcaine (PF) 0.5 % (5 mg/mL) injection solution [address] [facility] #40865, [address] [place] [address], [id number], 3 09:43:56 lidocaine (PF) 100 mg/5 mL (2 %) injection syringe [address] [facility] #66957, [address] [place] [address], [id number], 3 09:43:56 Kenalog 40 mg/mL suspension for injection [address] [facility]08942, [address] [place] [address], [id number], 3 09:18:07 lidocaine (PF) 10 mg/mL (1 %) injection solution [address] [facility] #84657, [address] [place] [address], [id number], 3 09:18:11 bupivacaine (PF) 0.5 % (5 mg/mL) injection solution [address] [facility]25988, [address], [place], [id number], 09:18:19 Patient TargetsNo targets recorded. Patient Instructions Encounter Date Encounter Id Patient Instructions Last Modified By Organization Details Last Modified Time 05/05/2023 [id number] You have been provided with a cortisone [...] bony abnormality. Not available 05/06/2023 07:10:06 08/05/2023 [id number] You have been provided with a cortisone [...] portal EVIE. Not available 08/05/2023 12:46:18 11/18/2023 [id number] You have been provided with a cortisone [...] portal EVIE. Not available 11/18/2023 09:46:35 03/02/2024 [id number] You have been provided with a cortisone [...] humeral head. Not available 03/02/2024 11:52:02 06/15/2024 [id number] You have been provided with a cortisone [...] Time Chronic pain of right upper limb [id number] 681831 Active 2018 Chronic right shoulder pain Not Available [facility] 5 00:14:22 Inflammat ion of joint of right shoulder region Active 2018 Arthritis of right shoulder region Not Available [facility] 5 00:14:23 Disorder of shoulder 708909097 Active 2018 Shoulder impingeme nt, right Not Available [facility] 5 00:14:23 Coracoid impingeme nt 076451226 Active 2020 Coracoid impingeme nt of right shoulder Coracoid impingeme nt of left shoulder Not Available [facility] 5 00:14:23 Calcific tendiniti s of left shoulder 70163265883 9108 Active 2022 ZACHARIAH YI PA-C [address] [facility] [address], [facility] [place], [address] , [place] [facility] 3 13:37:05 Osteoarth ritis of left glenohume ral joint 62161935573 07190 Active 2022 ZACHARIAH YI PA-C [address], [place], [address] , [place] [facility] 3 13:37:11 Pain of left shoulder joint 79500385210 221811 Active 2022 ZACHARIAH YI PA-C [address], [place], [place], [address] , [place] [facility] 3 09:04:04 Osteoarth ritis of right glenohume ral joint 98234014703 60588 Active 2023 ZACHARIAH YI PA-C [address], [place], [address] , [place] [facility] 4 09:46:37 Problem Notes None recorded. Procedures Surgical History Date Name Laterality Status Provider Name and Address Organization Details Recorded Time 06/15/20 24 LES Subacromial Shoulder Inj completed Morelia Hernandez MD [address] [facility], [place], [address], [place] [facility] 06/15/2024 12:24:54 06/15/20 24 LES Shoulder Interarticular Inj completed Morelia Hernandez MD [address] [place] [address], [address], [place] [facility] 06/15/2024 12:24:34 03/02/20 24 LES Shoulder Interarticular Inj completed Morelia Hernandez MD [address] [facility], [place], [address], [place] [facility] 03/02/2024 11:49:55 11/18/19 24 Shoulder Joint/Bursa Asp & Inj completed ZACHARIAH YI PA-C [address] [place] [address], [address], [place] [facility] 11/18/2023 09:46:34 08/05/20 23 Shoulder Joint/Bursa Asp & Inj completed ZACHARIAH YI PA-C [address], [place], [address], [place] [facility] 08/05/2023 12:45:28 05/05/20 23 Shoulder Joint/Bursa Asp & Inj completed ZACHARIAH YI PA-C [address] [facility],[address], [place], [address], [place] [facility] 05/06/2023 07:12:30 04/20/20 23 Shoulder Joint/Bursa Asp & Inj completed ZACHARIAH YI PA-C [address] [facility],[address], [place], [address], [place] [facility] 04/20/2023 09:04:07 01/26/20 23 Shoulder Joint/Bursa Asp & Inj completed ZACHARIAH YI PA-C [address] [facility],[address], [place], [address], [place] [facility] 01/25/2023 08:08:04 procedure on shoulder completed [facility] 04/20/2023 08:44:03 Imaging Results None recorded. Procedure Notes None recorded. Medical Equipment None Reported. Allergies Allergen ID Allergen Name Allergen Category Reaction Reaction Severity Criticality Documentation Date Start Date Code Code System Note Provider Name and Address Organization Details Recorded Time 58237 Demerol medicatio n Not available Not available Not available 08/05/2023 10242 1 [facility] 09:17:25 67100 Substance with sulfonami de structure and antibacte rial mechanism of action (substanc e) medicatio n Not available Not available Not available 08/05/2023 10211 8003 SNOMED Sade saleh, [facility] 3 09:17:42 973530 ciproflox acin medicatio n Not available Not available Not available 05/29/20252013 2551 RxNorm React ion: Other (See Comme nts), sever ity: Unkno wn Not Available [facility] 01:32:09 175425 meperidin e medicatio n Not available Not available Not available 05/29/20252013 6754 RxNorm React ion: Nause a And Vomit ing, sever ity: Unkno wn;Re actio n: Nause a Only, sever ity: Unkno wn;Re actio n: Other (See Comme nts), sever ity: Unkno wn Not Available [facility] 5 01:32:09 Medications Name Sig Start Date [...] cm Laurie Re [place] [facility] 11/18/2023 09:10:45 Date Recorded Body height Provider Name an d Address Organization Details Last Updated DateTime 03/02/2024 167.[address] [place] [facility] 03/02/2024 09:41:54 Date Recorded Body height Provider Name an d Address Organization Details Last Updated DateTime 05/05/2023 167.64 cm Sade [place] [facility] 05/05/2023 09:14:15 Date Recorded Body height Body mass index (BMI) Body weight Provider Name and Address Organization Details Last Updated DateTime 06/15/2024 167.64 cm 29.9 kg/m2 79655.59 g Nuria Raulito [place] [facility] 06/15/2024 09:34:33 Date Recorded Body height Provider Name an d Address Organization Details Last Updated DateTime 08/05/2023 167.64 cm Sade [facility] 08/05/2023 09:16:10 Social History None recorded. [...] ICD10 Code Diagnosis IMO Codes Diagnosis Note [id number] [address] [address] 01/25/2023 13:07:27 01/25/2023 13:37:15 Pain of left shoulder joint 2939211393 0418027 M25.512 Calcific t endinitis of left shoulder 1729602419 30050 M75.32 Osteoarthr itis of left glenohumeral joint 0215117402 875982 M19.012 [id number] VEENA VALDEZ [facility] [address] [address] 04/20/2023 08:32:00 04/20/2023 09:01:15 Osteoarthritis of left glenohumeral joint 3655536142 504317 M19.012 Pain of le ft shoulder joint 8284623323 2995558 M25.512 Calcific t endinitis of left shoulder 5351933147 32194 M75.32 [id number] VEENA VALDEZ [facility] [address] [address] 05/05/2023 08:58:23 05/05/2023 09:35:40 Pain of right shoulder joint 0075597249 3001938 M25.511 Osteoarthr itis of left glenohumeral joint 2965846254 557321 M19.012 [id number] VEENA VALDEZ [facility] [address] [address] 08/05/2023 08:52:32 08/05/2023 10:22:54 Calcific tendinitis of left shoulder 0202231136 64406 M75.32 Osteoarthr itis of left glenohumeral joint 4250089060 193201 M19.012 Osteoarthr itis of right glenohumeral joint 8171466349 248258 M19.011 [id number] ZACHARIAH YI PA-C [facility] 299 [facility] [address] [place] [address] 11/18/2023 09:07:38 11/18/2023 09:23:55 Osteoarthritis of left glenohumeral joint 3004771454 929195 M19.012 Pain of ri ght shoulder joint 2310827736 7158327 M25.511 Additional diagnosis detail: Pain, joint, shoulder, right Calcific t endinitis of left shoulder 8454772628 59105 M75.32 Osteoarthr itis of right glenohumeral joint 0777569032 906245 M19.011 [id number] Morelia Hernandez MD [facility] [address] [address] 03/02/2024 09:35:33 03/02/2024 10:19:53 Pain of left shoulder joint 7585145162 7458725 M25.512 Additional diagnosis detail: Pain, joint, shoulder, left Osteoarthr itis of right glenohumeral joint 8242657272 882190 M19.011 M19.012 Additional diagnosis detail: Osteoarthr itis of left glenohumer al joint Calcific t endinitis of left shoulder 5907275302 08449 M75.32 [id number] Morelia Hernandez MD [facility] [address] [address] 06/15/2024 09:31:00 06/15/2024 10:04:56 Osteoarthritis of right glenohumeral joint 1420768976 634266 M19.011 M19.012 Additional diagnosis detail: Osteoarthr itis of left glenohumer al joint Calcific t endinitis of left shoulder 4660830291 38527 M75.32 Health Concerns Section Related Observation LastModified by Organization Detai ls LastModified Time None Recorded Concern Status LastModified by Organization Details LastModified Time None Recorded Advance Directives Directive None Recorded Payers Insurance Date Sequence Insurance Name Policy Number Policy Vargas Covered Member ID Vargas Member ID Guarantor Name 06/15/2024 1 [facility] [id number] Fermin Wilhelm [id number] Fermin Wilhelm Notes Date Note Type [...] acute bony abnormality. ZACHARIAH YI PA-C [address] [facility],[address] [address], [place], [address], [place] [facility] 05/06/2023 07:15:15 08/05/2023 text/html Larry 63-year-old [...] ZACHARIAH YI PA-C [address], [place], [address], [place] [facility] 08/05/2023 12:46:53 11/18/2023 text/html Larry 63-year-old [...] as feasibly possible. ZACHARIAH YI PA-C [address] [address], [place], [address], [place] [facility] 11/18/2023 09:49:15 03/02/2024 text/html ROS as noted in the HPI This is a 63-year-old mywsf-alxw-npqpjalw male who presents with right worse than [...] the right side. Morelia Hernandez MD [address] [address], [place], [address], [facility] - [facility] 03/02/2024 11:53:35 06/15/2024 text/html ROS as noted in the HPI He follows up for his right shoulder glenohumeral joint arthritis and left shoulder calcific tendinitis, he is status post steroid injections on 03/02/2024. He got pain relief for about 2 months however pain has been recurring recently. He notes pain worse in the right side than the left side. He takes dcyx-fyc-tsuuptd medication when he has pain. Morelia Hernandez MD [address] [address], [place], [address], [place] [facility] 06/15/2024 12:29:00
--- OUTSIDE RECORDS SUMMARY | 2025-08-22 18:36 | XMS_ITS | Clinical Summary ---
Author Organization [facility] Prior to 02/03/[address] [place] [address] Care Team Providers Care Schedule Maker Name Role Phone Kavon Maldonado MD Primary Care Provider + [phone] Allergies Active Allergy Reactions Criticality Noted Date [...] Tdap) 04/18/2025 04/18/2015 Influenza Vaccine (#1) 2025 1, 07/01/2018, 08/11/2017, Additional history exists RSV Adult [...] age to complete this topic Care Teams Schedule Maker Relationship Specialty Start Date End Date Kavon Maldonado MD [address] [place] [address] PCP - General Internal Medicine 07/07/18
--- OUTSIDE RECORDS SUMMARY | 2025-08-22 18:36 | XMS_ITS | Data Portability ---
Author Organization [facility], Main Office Address [address] [place] [address] Care Team Providers Care Drawing Instructor Name Role Phone KAVON LEVINE Primary Care Provider [phone] MELBA MOORE Mental Health Program Director KRYS NAGY Parts Interpreter TORRIE LYN Urologist [phone] CAMILLE APARICIO Infectious Disease [phone] GLADYS GALVAN Neurologist HUONG GARCIA Lithographic Proofer [phone] JACY VILLELA Phys. Med. & Rehab [phone] ELOY [place] Neurosurgeon ALLENHURST DERMATOLOGY Parts Interpreter [phone] BRITTANI RAMIRES Orthopedic Surgeon [phone] Assessment No assessment recorded. Plan of Treatment Reminders Order Date Submit Date Provider Last Modified By Organization Details Last Modified Time Details Appointments FOLLOW UP 2025 10:45A M Kavon Levine MD Not available Not available Not available PE EST 2025 08:30A M Kavon Levine MD Not available Not available Not available Lab vitami n B12, serum 2024 025 DEMARCUS [facility] (Centralized Electronic Ordering - All Locations), Patient Can Go To The Location Of Their Choice, [id number] 04/12/2025 10:49:15 CMP, serum or plasma 2024 025 DEMARCUS [facility] (Centralized Electronic Ordering - All Locations), Patient Can Go To The Location Of Their Choice, 04/12/2025 10:49:16 CBC w/ auto diff 2024 025 DEMARCUS [facility] (Centralized Electronic Ordering - All Locations), Patient Can Go To The Location Of Their Choice, 04/12/2025 10:49:16 TSH, ultra- sensit milla, serum 2024 025 DEMARCUS [facility] (Centralized Electronic Ordering - All Locations), Patient Can Go To The Location Of Their Choice, 01/10/2025 08:12:11 magnes ium, serum or plasma 2024 025 DEMARCUS [facility] (Centralized Electronic Ordering - All Locations), Patient Can Go To The Location Of Their Choice, 01/10/2025 08:12:12 urinal ysis, comple te 2024 025 DEMARCUS [facility], [address], [address], [place], [address], 01/10/2025 08:12:10 CMP, serum or plasma 2024 025 DEMARCUS [facility], [address], [address], [place], [address], 01/10/2025 08:12:09 CBC w/ auto diff 2024 025 DEMARCUS [facility], [address], [address], [place], [address], 01/10/2025 08:12:09 lipid panel, serum 2024 025 DEMARCUS [facility], [address], [address], [place], [address], 01/10/2025 08:12:10 rapid flu (A+B) 2024 025 DEMARCUS In-Office Order, Internal Use Only DO Not Attach Compendium DO Not Attach Compendium, Do Not Delete/merge, [id number] 11/04/2024 10:23:20 Referral nutrit ionist /david mayes referr al 2024 025 [facility], [address], [place], [address], 04/12/2025 11:14:19 nutrit ionist /david mayes referr al 2024 025 [email or web address] Not available 02/16/2025 11:05:03 Procedures None record ed. Surgeries None record ed. Imaging barium swallo w study - rule out stenos is 2024 025 [facility] (Ultrasound), [address] [place], [address], 03/28/2025 13:27:11 electr ocardi ogram 2024 025 [id number] In-Office Order, Internal Use Only DO Not Attach Compendium DO Not Attach Compendium, Do Not Delete/merge, [id number] 01/08/2025 14:21:28 XR, chest, 2 view - rule out pneumo reji 2024 025 [facility], [address] [place], [address], 11/04/2024 17:24:01 Medication Orders amoxic illin 875 mg-pot assium clavul anate 125 mg tablet 2024 025 [facility], [address] [place] [address], [id number], 08/06/2025 05:02:20 lisino pril 20 mg tablet [address] [facility], [facility], [place], [address], 06/21/2025 13:27:29 olopat adine 0.1 % eye drops 2024 025 [facility]09163, [address] [place] [address], [id number], 01/08/2025 13:56:49 benzon atate 200 mg capsul e 2024 025 [facility] #02112, [address] [place] [address], [id number], 01/08/2025 13:10:35 Delsym 12 hour 30 mg/5 mL oral suspen werner,e xtende d releas e 2024 025 [facility] #82007, [address] [place] [address], [id number], 04/12/2025 10:16:52 oselta mivir 75 mg capsul e 2024 025 [facility] #88770, [address] [place] [address], [id number], 01/08/2025 13:11:38 predni sone 20 mg tablet 2024 025 [facility] #40500, [address] [place] [address], [id number], 01/08/2025 13:11:42 Patient TargetsNo targets recorded. Patient Instructions Encounter Date Encounter Id Patient Instructions Last Modified By Organization Details Last Modified Time 11/04/2024 [id number] learning about fever awychowski Not yuli ilable 11/04/2024 10:14:47 cough: care instructions awychowski Not available 11/04/2024 10:37:14 01/08/2025 [id number] sleep apnea: car e instructions awychowski Not [...] Instructions awychowski Not available 01/08/2025 13:49:27 04/12/2025 [id number] sleep apnea: car e instructions awychowski Not [...] weight awychowski Not available 04/12/2025 10:49:03 06/21/2025 [id number] body mass index: care instructions awychowski Not available 06/21/2025 13:27:27 learning about healthy weight awychowski Not available 06/21/2025 13:27:27 07/23/2025 [id number] Chart reviewed, agree with above assessment and plan. awychowski Not available 07/23/2025 16:34:07 Reason for Referral Interface Analyst/dietitian Refer ral for Body mass index 30+ - obesity Referring Physician: [facility]on [facility], Encounter Date: 01/08/2025 Interface Analyst/dietitian Refer ral for Body mass index 30+ - obesity Referring Physician: [facility]on [facility], Encounter Date: 04/12/2025 Results Created Date Observation Date Name Description Value Unit Range Abnormal Flag Note LastModifiedBy Organization Detail LastModifiedTime 11/05/19 25 11/04/2024 rapid flu (A+B) Flu A positi ve Not Available In-Office Order Internal Use Only DO Not Attach Compendium DO Not Attach Compendium, Do Not Delete/merge, [id number] 11/04/2024 10:03:51 11/05/19 25 11/04/2024 rapid flu (A+B) Flu B negati ve Not Available In-Office Order Internal Use Only DO Not Attach Compendium DO Not Attach Compendium, Do Not Delete/merge, [id number] 11/04/2024 10:03:51 01/10/20 25 01/09/2025 CBC WITH DIFFE RENTI AL/PL ATELE T WBC 4.8 x10e3 /uL 3.4-10 .8 normal Not Available [facility] ([facility]) [address] [place], [address], 01/10/2025 08:12:09 01/10/20 25 01/09/2025 CBC WITH DIFFE RENTI AL/PL ATELE T RBC 4.91 x10e6 /uL 4.14-5 .80 normal Not Available [facility] ([facility]) [address] [place], [address], 01/10/2025 08:12:09 01/10/20 25 01/09/2025 CBC WITH DIFFE RENTI AL/PL ATELE T hemoglobin 15.7 g/dL 13.0-1 7.7 normal Not Available [facility] ([facility]) [address] [place], [address], 01/10/2025 08:12:09 01/10/2001/09/2025 CBC WITH DIFFE RENTI AL/PL ATELE T hematocrit 45.3 % 37.5-5 1.0 normal Not Available [facility] ([facility]) [address] [place], [address], 01/10/2025 08:12:09 01/10/20 25 01/09/2025 CBC WITH DIFFE RENTI AL/PL ATELE T MCV 92 fL 79-97 normal Not Available [facility] ([facility]) [address] [place], [address], 01/10/2025 08:12:09 01/10/20 25 01/09/2025 CBC WITH DIFFE RENTI AL/PL ATELE T MCH 32.0 pg 26.6-3 3.0 normal Not Available [facility] ([facility]) [address] [facility], [place], [address], 01/10/2025 08:12:09 01/10/20 25 01/09/2025 CBC WITH DIFFE RENTI AL/PL ATELE T MCHC 34.7 g/dL 31.5-3 5.7 normal Not Available [facility] ([facility]) [address] [facility], [place], [address], 01/10/2025 08:12:09 01/10/2001/09/2025 CBC WITH DIFFE RENTI AL/PL ATELE T RDW 14.4 % 11.6-1 5.4 Not Available [facility] ([facility]) [address] [facility], [place], [address], 01/10/2025 08:12:09 01/10/20 25 01/09/2025 CBC WITH DIFFE RENTI AL/PL ATELE T platelets 108 x10e3 /uL 150-45 0 below low normal Not Available [facility] ([facility]) [address] [facility], [place], [address], 01/10/2025 08:12:09 01/10/2001/09/2025 CBC WITH DIFFE RENTI AL/PL ATELE T neutrophils 62 % not estab. normal Not Available [facility] ([facility]) [address] [facility], [place], [address], 01/10/2025 08:12:09 01/10/20 25 01/09/2025 CBC WITH DIFFE RENTI AL/PL ATELE T lymphs 26 % not estab. normal Not Available [facility] ([facility]) [address] [place], [address], 01/10/2025 08:12:09 01/10/20 25 01/09/2025 CBC WITH DIFFE RENTI AL/PL ATELE T monocytes 8 % not estab. normal Not Available [facility] ([facility]) [address] [place], [address], 01/10/2025 08:12:09 01/10/20 25 01/09/2025 CBC WITH DIFFE RENTI AL/PL ATELE T eos 3 % not estab. normal Not Available [facility] ([facility]) [address] [place], [address], 01/10/2025 08:12:09 01/10/20 25 01/09/2025 CBC WITH DIFFE RENTI AL/PL ATELE T basos 1 % not estab. normal Not Available [facility] ([facility]) [address] [facility], [place], [address], 01/10/2025 08:12:09 01/10/20 25 01/09/2025 CBC WITH DIFFE RENTI AL/PL ATELE T immature cells HIGHWAY TRAFFIC CONTROL TECHNICIAN Not Available [facility] ([facility]) [address] [place], [address], 01/10/2025 08:12:09 01/10/20 25 01/09/2025 CBC WITH DIFFE RENTI AL/PL ATELE T neutrophils (absolute) 3.0 x10e3 /uL 1.4-7. 0 normal Not Available [facility] ([facility]) [address] [place], [address], 01/10/2025 08:12:09 01/10/20 25 01/09/2025 CBC WITH DIFFE RENTI AL/PL ATELE T lymphs (absolute) 1.3 x10e3 /uL 0.7-3. 1 normal Not Available [facility] ([facility]) [address] [place], [address], 01/10/2025 08:12:09 01/10/20 25 01/09/2025 CBC WITH DIFFE RENTI AL/PL ATELE T monocytes(ab solute) 0.4 x10e3 /uL 0.1-0. 9 normal Not Available [facility] ([facility]) [address] [facility], [place], [address], 01/10/2025 08:12:09 01/10/20 25 01/09/2025 CBC WITH DIFFE RENTI AL/PL ATELE T eos (absolute) 0.1 x10e3 /uL 0.0-0. 4 normal Not Available [facility] ([facility]) [address] [facility], [place], [address], 01/10/2025 08:12:09 01/10/20 25 01/09/2025 CBC WITH DIFFE RENTI AL/PL ATELE T baso (absolute) 0.0 x10e3 /uL 0.0-0. 2 normal Not Available [facility] ([facility]) [address] [place], [address], 01/10/2025 08:12:09 01/10/20 25 01/09/2025 CBC WITH DIFFE RENTI AL/PL ATELE T immature granulocytes 0 % not estab. Not Available [facility] ([facility]) [address] [place], [address], 01/10/2025 08:12:09 01/10/20 25 01/09/2025 CBC WITH DIFFE RENTI AL/PL ATELE T immature grans (abs) 0.0 x10e3 /uL 0.0-0. 1 Not Available [facility] ([facility]) [address] [place], [address], 01/10/2025 08:12:09 01/10/20 25 01/09/2025 CBC WITH DIFFE RENTI AL/PL ATELE T NRBC HIGHWAY TRAFFIC CONTROL TECHNICIAN Not Available [facility] ([facility]) [address] [place], [address], 01/10/2025 08:12:09 01/10/20 25 01/09/2025 CBC WITH DIFFE ROSATI AL/PL ATELE T hematology comments: HIGHWAY TRAFFIC CONTROL TECHNICIAN Not Available [facility] ([facility]) [address] [place], [address], 01/10/2025 08:12:09 01/10/20 25 01/10/2025 COMP. METAB OLIC PANEL (14) glucose 129 mg/dL 70-99 above high normal Not Available [facility] ([facility]) [address] [place], [address], 01/10/2025 08:12:09 01/10/20 25 01/10/2025 COMP. METAB OLIC PANEL (14) BUN 15 mg/dL 8-27 normal Not Available [facility] ([facility]) [address] [facility], [place], [address], 01/10/2025 08:12:09 01/10/20 25 01/10/2025 COMP. METAB OLIC PANEL (14) creatinine 0.75 mg/dL 0.76-1 .27 below low normal Not Available [facility] ([facility]) [address] [place], [address], 01/10/2025 08:12:09 01/10/20 25 01/10/2025 COMP. METAB OLIC PANEL (14) eGFR 102 mL/mi n/1.7 3 >59 normal Not Available [facility] ([facility]) [address] [place], [address], 01/10/2025 08:12:09 01/10/20 25 01/10/2025 COMP. METAB OLIC PANEL (14) BUN/creatini ne ratio 20 10-24 normal Not Available [facility] ([facility]) [address] [place], [address], 01/10/2025 08:12:09 01/10/20 25 01/10/2025 COMP. METAB OLIC PANEL (14) sodium 144 mmol/ L 134-14 4 normal Not Available [facility] ([facility]) [address] [place], [address], 01/10/2025 08:12:09 01/10/20 25 01/10/2025 COMP. METAB OLIC PANEL (14) potassium 4.3 mmol/ L 3.5-5. 2 normal Not Available [facility] ([facility]) [address] [place], [address], 01/10/2025 08:12:09 01/10/20 25 01/10/2025 COMP. METAB OLIC PANEL (14) chloride 105 mmol/ L 96-106 normal Not Available [facility] ([facility]) [address] [place], [address], 01/10/2025 08:12:09 01/10/20 25 01/10/2025 COMP. METAB OLIC PANEL (14) carbon dioxide, total 21 mmol/ L 20-29 normal Not Available [facility] ([facility]) [address] [place], [address], 01/10/2025 08:12:09 01/10/20 25 01/10/2025 COMP. METAB OLIC PANEL (14) calcium 9.9 mg/dL 8.6-10 .2 normal Not Available [facility] ([facility]) [address] [facility] [place], [address], 01/10/2025 08:12:09 01/10/20 25 01/10/2025 COMP. METAB OLIC PANEL (14) protein, total 6.7 g/dL 6.0-8. 5 normal Not Available [facility] ([facility]) [address] [facility] [place], [address], 01/10/2025 08:12:09 01/10/20 25 01/10/2025 COMP. METAB OLIC PANEL (14) albumin 4.7 g/dL 3.9-4. 9 normal Not Available [facility] ([facility]) [address] [facility], [place], [address], 01/10/2025 08:12:09 01/10/20 25 01/10/2025 COMP. METAB OLIC PANEL (14) globulin, total 2.0 g/dL 1.5-4. 5 Not Available [facility] ([facility]) [address] [facility] [place], [address], 01/10/2025 08:12:09 01/10/20 25 01/10/2025 COMP. METAB OLIC PANEL (14) bilirubin, total 0.7 mg/dL 0.0-1. 2 normal Not Available [facility] ([facility]) [address] [facility] [place], [address], 01/10/2025 08:12:09 01/10/20 25 01/10/2025 COMP. METAB OLIC PANEL (14) alkaline phosphatase 75 IU/L 44-121 normal Not Available [facility] ([facility]) [address] [facility], [place], [address], 01/10/2025 08:12:09 01/10/20 25 01/10/2025 COMP. METAB OLIC PANEL (14) AST (SGOT) 77 IU/L 0-40 above high normal Not Available [facility] ([facility]) [address] [place], [address], 01/10/2025 08:12:09 01/10/20 25 01/10/2025 COMP. METAB OLIC PANEL (14) ALT (SGPT) 143 IU/L 0-44 above high normal Not Available [facility] ([facility]) [address] [place], [address], 01/10/2025 08:12:09 01/10/20 25 01/09/2025 URINA LYSIS , COMPL ETE specific gravity 1.025 1.005- 1.030 normal Not Available [facility] ([facility]) [address] [place], [address], 01/10/2025 08:12:10 01/10/20 25 01/09/2025 URINA LYSIS , COMPL ETE pH 7.0 5.0-7. 5 normal Not Available [facility] ([facility]) [address] [place], [address], 01/10/2025 08:12:10 01/10/20 25 01/09/2025 URINA LYSIS , COMPL ETE urine-color YELLOW yellow Not Available [facility] ([facility]) [address] [place], [address], 01/10/2025 08:12:10 01/10/20 25 01/09/2025 URINA LYSIS , COMPL ETE appearance CLEAR clear Not Available [facility] ([facility]) [address] [place], [address], 01/10/2025 08:12:10 01/10/20 25 01/09/2025 URINA LYSIS , COMPL ETE WBC esterase NEGATI VE negati ve Not Available [facility] ([facility]) [address] [place], [address], 01/10/2025 08:12:10 01/10/20 25 01/09/2025 URINA LYSIS , COMPL ETE protein 1+ negati ve/tra ce abnormal Not Available [facility] ([facility]) [address] [place], [address], 01/10/2025 08:12:10 01/10/20 25 01/09/2025 URINA LYSIS , COMPL ETE glucose NEGATI VE negati ve Not Available [facility] ([facility]) [address] [place], [address], 01/10/2025 08:12:10 01/10/20 25 01/09/2025 URINA LYSIS , COMPL ETE ketones NEGATI VE negati ve Not Available [facility] ([facility]) [address] [facility] [place], [address], 01/10/2025 08:12:10 01/10/20 25 01/09/2025 URINA LYSIS , COMPL ETE occult blood NEGATI VE negati ve Not Available [facility] ([facility]) [address] [facility], [place], [address], 01/10/2025 08:12:10 01/10/20 25 01/09/2025 URINA LYSIS , COMPL ETE bilirubin NEGATI VE negati ve Not Available [facility] ([facility]) [address] [place], [address], 01/10/2025 08:12:10 01/10/20 25 01/09/2025 URINA LYSIS , COMPL ETE urobilinogen ,semi-qn 0.2 mg/dL 0.2-1. 0 normal Not Available [facility] ([facility]) [address] [place], [address], 01/10/2025 08:12:10 01/10/20 25 01/09/2025 URINA LYSIS , COMPL ETE nitrite, urine NEGATI VE negati ve Not Available [facility] ([facility]) [address] [place], [address], 01/10/2025 08:12:10 01/10/20 25 01/09/2025 URINA LYSIS , COMPL ETE microscopic examination SEE BELOW: Micro scopi c was indic ated and was perfo rmed. Not Available [facility] ([facility]) [address] [place], [address], 01/10/2025 08:12:10 01/10/20 25 01/09/2025 URINA LYSIS , COMPL ETE microscopic examination HIGHWAY TRAFFIC CONTROL TECHNICIAN Not Available [facility] ([facility]) [address] [place], [address], 01/10/2025 08:12:10 01/10/20 25 01/10/2025 URINA LYSIS , COMPL ETE WBC NONE SEEN /hpf 0 - 5 Not Available [facility] ([facility]) [address] [facility], [place], [address], 01/10/2025 08:12:10 01/10/20 25 01/10/2025 URINA LYSIS , COMPL ETE RBC NONE SEEN /hpf 0 - 2 Not Available [facility] ([facility]) [address] [facility], [place], [address], 01/10/2025 08:12:10 01/10/20 25 01/10/2025 URINA LYSIS , COMPL ETE epithelial cells (non renal) NONE SEEN /hpf 0 - 10 Not Available [facility] ([facility]) [address] [facility], [place], [address], 01/10/2025 08:12:10 01/10/20 25 01/10/2025 URINA LYSIS , COMPL ETE epithelial cells (renal) HIGHWAY TRAFFIC CONTROL TECHNICIAN Not Available [facility] ([facility]) [address] [facility], [place], [address], 01/10/2025 08:12:10 01/10/20 25 01/10/2025 URINA LYSIS , COMPL ETE casts NONE SEEN /lpf none seen Not Available [facility] ([facility]) [address] [facility], [place], [address], 01/10/2025 08:12:10 01/10/20 25 01/10/2025 URINA LYSIS , COMPL ETE cast type HIGHWAY TRAFFIC CONTROL TECHNICIAN Not Available [facility] ([facility]) [address] [facility], [place], [address], 01/10/2025 08:12:10 01/10/20 25 01/10/2025 URINA LYSIS , COMPL ETE crystals HIGHWAY TRAFFIC CONTROL TECHNICIAN Not Available [facility] ([facility]) [address] [facility], [place], [address], 01/10/2025 08:12:10 01/10/20 25 01/10/2025 URINA LYSIS , COMPL ETE crystal type HIGHWAY TRAFFIC CONTROL TECHNICIAN Not Available [facility] ([facility]) [address] [facility], [place], [address], 01/10/2025 08:12:10 01/10/20 25 01/10/2025 URINA LYSIS , COMPL ETE mucus threads HIGHWAY TRAFFIC CONTROL TECHNICIAN Not Available [facility] ([facility]) [address] [facility], [place], [address], 01/10/2025 08:12:10 01/10/20 25 01/10/2025 URINA LYSIS , COMPL ETE bacteria NONE SEEN none seen/f ew Not Available [facility] ([facility]) [address] [facility], [place], [address], 01/10/2025 08:12:10 01/10/20 25 01/10/2025 URINA LYSIS , COMPL ETE yeast HIGHWAY TRAFFIC CONTROL TECHNICIAN Not Available [facility] ([facility]) [address] [facility], [place], [address], 01/10/2025 08:12:10 01/10/20 25 01/10/2025 URINA LYSIS , COMPL ETE trichomonas HIGHWAY TRAFFIC CONTROL TECHNICIAN Not Available [facility] ([facility]) [address] [facility], [place], [address], 01/10/2025 08:12:10 01/10/20 25 01/10/2025 URINA LYSIS , COMPL ETE comment HIGHWAY TRAFFIC CONTROL TECHNICIAN Not Available [facility] ([facility]) [address] [facility], [place], [address], 01/10/2025 08:12:10 01/10/20 25 01/10/2025 LIPID PANEL cholesterol, total 171 mg/dL 100-19 9 normal Not Available [facility] ([facility]) [address] [facility], [place], [address], 01/10/2025 08:12:10 01/10/20 25 01/10/2025 LIPID PANEL triglyceride s 95 mg/dL 0-149 normal Not Available [facility] ([facility]) [address] [place], [address], 01/10/2025 08:12:10 01/10/20 25 01/10/2025 LIPID PANEL HDL cholesterol 80 mg/dL >39 normal Not Available [facility] ([facility]) [address] [facility] [place], [address], 01/10/2025 08:12:10 01/10/20 25 01/10/2025 LIPID PANEL VLDL cholesterol alejandro 17 mg/dL 5-40 Not Available [facility] ([facility]) [address] [place], [address], 01/10/2025 08:12:10 01/10/20 25 01/10/2025 LIPID PANEL LDL chol calc ([facility]) 74 mg/dL 0-99 Not Available [facility] ([facility]) [address] [place], [address], 01/10/2025 08:12:10 01/10/20 25 01/10/2025 LIPID PANEL LDL calc comment: HIGHWAY TRAFFIC CONTROL TECHNICIAN Not Available [facility] ([facility]) [address] [place], [address], 01/10/2025 08:12:10 01/10/2001/10/2025 TSH RFX ON ABNOR MAL TO FREE T4 TSH 1.790 uIU/m L 0.450- 4.500 normal Not Available [facility] ([facility]) [address] [place], [address], 01/10/2025 08:12:11 01/10/2001/10/2025 MAGNE SIUM magnesium 2.2 mg/dL 1.6-2. 3 normal Not Available [facility] ([facility]) [address] [place], [address], 01/10/2025 08:12:12 11/05/19 25 11/04/2024 XR, chest [...] IMPRES WERNER: No acute abnorm ality. WSN: [id number] Orderi ng Physic mathieu: Kavon Steele Dictat ed By: Janes Haile MD Dictat ed Date/T audrey: 4:28 pm Review ed By: Janes Hiale MD Signed By: Janes Haile MD Signed Date/T audrey: 4:28 pm Transc ribed By: CHRISTOPHER Transc ribed Date/T audrey: 4:27 pm Patien t Class: Outpat ient moni [facility] ([facility]pt [facility]) [address] [place] [address], [address], 01/08/2025 13:29:39 01/09/20 25 01/08/2025 elect micaela chang am No observ ation record ed. moni In-Office Order Internal Use Only DO Not Attach Compendium DO Not Attach Compendium, Do Not Delete/merge, [id number] 01/08/2025 21:47:34 01/09/20 elect micaela roldangr am No observ ation record ed. DEMARCUS In-Office Order Internal Use Only DO Not Attach Compendium DO Not Attach Compendium, Do Not Delete/merge, [id number] 01/09/2025 12:00:09 01/20/20 25 01/19/2025 US, liver [...] I agree with this report . WSN: [id number] Orderi ng Physic mathieu: Kavon Steele Dictat ed By: Holger Mesa MD Dictat ed Date/T audrey: 11:51 a Review ed By: Renny Avalos MD Signed By: Renny Avalos MD Signed Date/T audrey: 11:56 am Transc ribed By: CHRISTOPHER Transc ribed Date/T audrey: 10:06 am Patien t Class: Outpat ient moni [facility] ([facility]) [address] [place], [address], 05/16/2025 22:00:29 03/28/20 25 03/28/2025 scott michelle [...] I agree with this report . WSN: [id number] Orderi ng Physic mathieu: Kavon Steele Dictat ed By: Dillon Singer DO ed Date/T audrey: 1:21 pm Review ed By: Jl guerrero MD, Ky Gannon Signed By: Ky Caba MD, V Signed Date/T audrey: 1:26 pm Transc ribed By: CHRISTOPHER Transc ribed Date/T audrey: 9:21 am Patien t Class: Outpat ient [facility] (Ultrasound) [address] [place], [address], 05/16/2025 22:00:01 03/28/2003/28/2025 scott turner ow study No observ ation record ed. [facility] [address] [facility], [place], [address], 05/16/2025 22:00:03 06/14/20 25 06/13/2025 elect romyo gram + nerve condu ction study No observ ation record ed. [facility] [address], [place], [address], 06/21/2025 13:19:29 Result Notes Documentation Provider Name [...] shoulder arthroplasty. IMPRESSION: No acute abnormality. WSN: [id number] Ordering Physician: Kavon Levine Dictated By: Carlos Phipps MD Dictated Date/Time: 11/04/24 4:28 pm Reviewed By: Carlos Phipps MD Signed By: Carlos Phipps MD Signed Date/Time: 11/04/24 4:28 pm Transcribed By: CHRISTOPHER Transcribed Date/Time: 11/04/24 4:27 pm Patient Class: Outpatient Kavon Levine MD [address], [place], [address], [facility] 01/08/2025 13:29:39 Barium Swallow Study : PROCEDURE: [...] and I agree with this report. WSN: [id number] Ordering Physician: Kavon Levine Dictated By: Dillon Singer DO Dictated Date/Time: 03/28/25 1:21 pm Reviewed By: Ky Clay MD, V Signed By: Ky Clay MD, V Signed Date/Time: 03/28/25 1:26 pm Transcribed By: CHRISTOPHER Transcribed Date/Time: 03/28/25 9:21 am Patient Class: Outpatient Kavon Levine MD [address], [address], [facility] 05/16/2025 22:00:01 Problems Name Problem SNOMED Code Status Onset Date Resolution Date Notes Provider Name and Address Organization Details Recorded Time Disorder of urinary bladder 37343194 Active Kavon Levine MD [address], [address], [facility] 6 09:07:01 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 [address], [place], [address], [facility] 2 10:12:56 Environm ental allergy 951070071 Active Kavon Levine MD [address] [facility] [address], [place], [address], [facility] 6 09:07:01 Body mass index 30+ - obesity 095857869 Completed 10/04/2017 Kavon Levine MD [address] [facility] [address], [place], [address], [facility] 5 13:36:35 Contact dermatit is 04361128 Completed 10/04/2017 Kavon Levine MD [address] [facility] [address], [place], [address], [facility] 8 10:48:55 Disorder of skin 00909395 Completed 04/23/2016 Kavon Levine MD [address] [facility] [address], [place], [address], [facility] 6 09:07:01 Hyperpla stic polyp of intestin e 88846273 Active Kavon Levine MD [address] [facility] [address], [place], [address], [facility] 6 09:07:01 Thromboc ytopenic disorder 314457008 Active Kavon Levine MD [address] [facility] [address], [place], [address], [facility] 6 09:07:01 Urine microsco py: presence of cells - finding 595233687 Completed 09/23/2016 [place] Vergara, [facility] 7 10:44:28 Actinic keratosi s 938510666 Completed 10/04/2017 Kavon Levine MD [address], [place], [address], [facility] 8 10:48:09 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 965597621 Active Kavon Levine MD [address], [place], [address], [facility] 6 09:07:01 Blood in urine 85154803 Completed 09/23/2016 [place] Vergara, [facility] 7 10:44:09 Hypogona dism 91149014 Active Kavon Levine MD [address], [place], [address], [facility] 6 09:07:01 Upper abdomina l pain 60747322 Completed 09/23/2016 [place] Vergara, [facility] 7 10:44:34 Gastroes ophageal reflux disease 720328257 Active Kavon Levine MD [address], [place], [address], [facility] 6 09:32:59 Hiatal hernia 05803616 Active Kavon Levine MD [address], [place], [address], [facility] 5 06:55:16 Chest wall pain 990159411 Completed 09/23/2016 [place] Vergara, [facility] 7 10:44:03 Advance directiv stefany chin d with patient 658299553 Completed 10/04/2017 Kaovn Levine MD [address], [place], [address], [facility] 8 10:47:20 Testicul ar hypofunc tion 930629799 Completed 201501/08/2025 Kavon Levine MD [address], [place], [address], [facility] 5 13:36:06 Obstruct milla sleep apnea syndrome 70575789 Active 2016 Kavon Levine MD [address], [place], [address], [facility] 7 22:31:33 Dysphagi a 92827638 Completed 201610/04/2017 Kavon Levine MD [address], [place], [address], [facility] 8 10:47:12 Insomnia 465023248 Active 2016 Kavon Levine MD [address], [place], [address], [facility] 7 11:41:51 Increase d liver function 41803896 Completed 201601/08/2025 Kavon Levine MD [address], [place], [address], [facility] 5 14:02:40 Divertic ular disease 801142453 Active 2017 Kavon Levine MD [address], [place], [address], [facility] 8 10:43:46 Greater trochant lashaun pain syndrome 6854603 Completed 201701/08/2025 Kavon Levine MD [address], [place], [address], [facility] 5 14:01:41 Hepatome maria elena 09104790 Active 2017 Kavon Levine MD [address], [place], [address], [facility] 8 12:58:09 Non-alco holic fatty liver 499423607 Active 2017 Kavon Levine MD [address], [place], [address], [facility] 8 12:58:18 Supraspi natus tendinit is 356922640 Completed 201701/08/2025 Kavon Levine MD [address], [place], [address], [facility] 5 14:03:02 Impingem ent syndrome of shoulder region 190572952 Active 2018 Kavon Levine MD [address], [place], [address], [facility] 9 12:26:13 Arthriti s of acromioc lavicula r joint 821704104 Active 2018 Kavon Levine MD [address], [place], [address], [facility] 9 12:27:08 Adhesive capsulit is of right shoulder 44871627764 9109 Completed 201808/25/2022 Kavon Levine MD [address], [place], [address], [facility] 2 10:05:25 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 103518037 Active 2019 Kavon Levine MD [address], [place], [address], [facility] 0 12:50:37 Spinal stenosis in cervical region 29680829 Completed 202001/08/2025 mild C3-C4, mild impingem ent C5-C6 Kavon Levine MD [address], [place], [address], [facility] 5 13:36:03 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 86434789552 9100 Active 2020 Kavon Levine MD [address], [place], [address], [facility] 1 12:45:34 Tendinos is of left shoulder 73100252965 735735 Active 2021 Kavon Levine MD [address] [facility] [address], [place], [address], [facility] 2 12:24:55 Herpes zoster 0828697 Completed 202108/25/2022 Removal Reason: resolved Kavon Levine MD [address], [place], [address], [facility] 2 10:06:35 History of herpes zoster 73759108181 9108 Active 2021 Kavon Levine MD [address], [place], [address], [facility] 2 10:06:18 Albuminu brock 855818397 Active 2022 Kavon Levine MD [address], [place], [address], [facility] 3 10:29:09 Cervical disc disorder 536711276 Active 2022 Kavon Levine MD [address], [place], [address], [facility] 3 20:14:38 Hypercal cemia 39815629 Completed 202204/09/2023 Kavon Levine MD [address], [place], [address], [facility] 3 07:47:51 Hypernat remia 246494336 Completed 202202/01/2023 Kavon Levine MD [address] [facility] [address], [place], [address], [facility] 3 19:23:55 Hyperosm olality and or hypernat remia 306542999 Completed 202201/08/2025 Kavon Levine MD [address] [facility] [address], [place], [address], [facility] 5 13:35:32 Peeling of skin 095619138 Completed 202201/08/2025 Kavon Levine MD [address] [facility] [address], [place], [address], [facility] 5 13:35:57 Chronic kidney disease stage 1 220362734 [facility] 21:14:13 Cervical spondylo sis 280855415 Active 2022 Kavon Levine MD [address] [facility] [address], [place], [address], [facility] 3 11:12:29 Electroc ardiogra m abnormal 491110552 Active 2024 Kavon Levine MD [address] [facility] [address], [place], [address], [facility] 5 22:45:36 Body mass index 30+ - obesity 571327970 Active 2024 Kavon Levine MD [address] [address], [place], [address], [facility] 5 13:36:35 Elevated blood-pr essure reading without diagnosi s of hyperten werner 337323554 Completed 202401/08/2025 Kavon Levine MD [address] [address], [place], [address], [facility] 5 13:46:54 Impaired fasting glycemia 677802642 Active 2024 Kavon Levine MD [address] [address], [place], [address], [facility] 5 09:20:09 Enzyme level - finding 016376205 Active 2024 Kavon Levine MD [address] [address], [place], [address], [facility] 5 09:27:15 Asymptom atic proteinu brock 070364844 Active 2024 Kavon Levine MD [address] [address], [place], [address], [facility] 5 09:27:19 Esophage al dysphagi a 45944373 Active 2024 Kavon Levine MD [address] [address], [place], [address], [facility] 5 15:53:44 Strictur e of esophagu s 17540131 Active 2024 Kavon Levine MD [address] [address], [place], [address], [facility] 5 06:58:13 Esophage al dysmotil ity 824453448 Active 2024 Kavon Levine MD [address] [address], [place], [address], [facility] 5 06:58:14 Bilatera l ulnar nerve disorder 75446322023 800246 Active 2024 Kavon Levine MD [address], [place], [address], [facility] 5 08:59:25 Acute bacteria l sinusiti s 08022307 Completed 202408/22/2025 Kavon Levine MD [address], [place], [address], [facility] 5 07:23:39 Wheezing symptom 700194318 Active [facility]24 [facility] [address] [facility] [address], [place], [address], [facility] 5 10:55:46 Problem Notes None recorded. Procedures Surgical History Date Name Laterality Status Provider Name and Address Organization Details Recorded Time 025 total shoulder replacement completed Alicia Ardon MA [facility] 01/08/2025 13:15:49 023 excision of cervical intervertebral disc completed Kavon Levine MD [address] [address], [place], [address], [facility] 11/06/2023 19:57:20 023 epidural injection of cervical spine using fluoroscopic guidance completed Kavon Levine MD [address] [address], [place], [address], [facility] 04/02/2023 08:18:38 022 Colonoscopy completed Kavon Levine MD [address] [address], [place], [address], [facility] 08/26/2022 15:03:15 020 procedure on shoulder completed [facility]12[facility]2019 14:46:53 019 shoulder injection completed Khadijah McCoy [facility] 10/11/2018 12:28:47 018 Echo transthoracic completed Kavon Levine MD [address] [address], [place], [address], [facility] 04/08/2018 09:52:55 018 Cardiovascular stress test completed Kavon Levine MD [address], [address], [facility] 04/08/2018 09:53:34 017 Joint Injection completed Kwaku Shah MD [address], [address], [facility] 09/23/2016 11:47:24 016 Advanced Care Planning completed Kavon Levine MD [address], [address], [facility] 04/23/2016 09:32:40 012 EGD completed Kavon Levine MD [address], [address], [facility] 03/08/2016 14:18:51 000 Orthopedic Surgery completed Kavon Levine MD [address], [address], [facility] 04/23/2016 09:05:07 997 Vasectomy completed Nae Betancur MA [facility] 04/18/2015 13:00:16 996 ENT Surgery completed Kavon Levine MD [address], [address], [facility] 04/18/2015 13:39:38 996 Hemorrhoidectomy completed Nae Betancur MA [facility] 04/18/2015 13:00:16 982 Tonsillectomy completed Nae RedmansivaPHOENIX [facility] 04/18/2015 13:00:15 Cystourethroscopy completed Kavon Levine MD [address] [facility] [address], [place], [address], [facility] 09/11/2016 12:15:53 Imaging Results None recorded. Procedure Notes None recorded. Medical Equipment None Reported. Allergies Allergen ID Allergen Name Allergen Category Reaction Reaction Severity Criticality Documentation Date Start Date Code Code System Note Provider Name and Address Organization Details Recorded Time Demerol medicatio n nausea Not available Not available 04/18/2015 43174 1 RxNorm Nae Betancur [place] [facility] 2 10:58:48 67210 Substance with sulfonami de structure and antibacte rial mechanism of action (substanc e) medicatio n fever nausea Not available Not available Not available 04/18/2015 45347 8003 SNOMED Nae Ferozsiva [place] [facility] 2 10:58:47 26813 Cipro medicatio n other Not available Not available 04/18/2015 02062 3 RxNorm Nae Redmansiva [place] [facility] 2 10:58:42 92290 meperidin e medicatio n Not available Not available Not available 07/23/2025 6754 RxNorm Not Available [employer] - prod 5 09:57:59 72647 ciproflox acin medicatio n Not available Not available Not available 07/23/20252013 2551 RxNorm Not Available [employer] - prod 5 09:58:00 Medications [...] Not Available Not Available Not Available Afluria 8236-2866 (PF) 45 mcg(15 mcg x 3)/0.5 mL intramuscu lar syringe 09/11 completed Not Available Not Available Not Available Fish Oil 1,000 mg (120 mg-180 mg) capsule Take 1 capsule every day by oral route. active Not Available Not Available No t Available Flucelvax Quad 7360-9381 (PF) 60 mcg (15 mcg x 4)/0.5 [...] Available Not Available Not Available Fluzone Quad 2018-(PF ) 60 mcg(15 mcgx4)/0.5 mL intramuscu lar [...] Oxygen saturation Body temperature Systolic And Diastolic Provider Name and Address Organization Details Last Updated DateTime 5 167.64 cm 32.3 kg/m2 38304.4 7 g 108 /min 95 % 97.6 [degF] 100/70 mm[Hg] [facility] [place] 5 10:03:26 Date Recorded Body height Body mass index (BMI) Body weight Heart rate Oxygen saturation Body temperature Systolic And Diastolic Systolic And Diastolic Provider Name and Address Organization Details Last Updated DateTime 5 167.64 cm 32.1 kg/m2 69878.8 8 g 100 /min 97 % 98.2 [degF] 141/97 mm[Hg] 132/90 mm[Hg] [facility] [place] 5 13:21:56 Date Recorded Systolic And Diastolic Provider Name and Address Organization Details Last Updated DateTime 04/12/2025 152/86 mm[Hg] Kavon Levine MD [address] [address], [place], [address], [facility] [place] 04/12/2025 10:43:21 Date Recorded Body height Oxygen saturation Heart rate Body temperature Systolic And Diastolic Systolic And Diastolic Provider Name and Address Organization Details Last Updated DateTime 5 167.64 cm 98 % 102 /min 97.5 [degF] 158/82 mm[Hg] 161/85 mm[Hg] Lyndsay Mccauley MA [facility] 5 10:14:55 Date Recorded Body height Body mass index (BMI) Body weight Heart rate Oxygen saturation Body temperature Systolic And Diastolic Systolic And Diastolic Provider Name and Address Organization Details Last Updated DateTime 5 167.64 cm 31.9 kg/m2 26588.5 g 100 /min 98 % 98.7 [degF] 147/100 mm[Hg] 132/92 mm[Hg] Alicia Ardon MA [facility] 5 13:12:50 Date Recorded Body height Body mass index (BMI) Body weight Oxygen saturation Heart rate Body temperature Systolic And Diastolic Provider Name and Address Organization Details Last Updated DateTime 5 167.64 cm 32 kg/m2 09492.6 9 g 98 % 86 /min 98.4 [degF] 131/83 mm[Hg] Lyndsay Mccauley MA [facility] 5 10:38:58 Social History Question Answer Notes LastModified by Organizat ion Details LastModified Time Tobacco Smoking Status [facility] 13:02:45 Do You Have An Advance Directive? Yes HCP/ Nia Wilhelm [email or web address] Information not available 01/23/2022 Is Blood Transfusion [...] available 04/18/2015 Seat Belts Used Routinely Yes [email or web address] Information not available 01/23/2022 Are You Sexually Active? 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 YESWOREST Information not available 08/25/2022 Are you able to care for yourself independently? Yes Information not available 04/18/2015 What is your occupation? [employer] Fully Retired from both jobs on 12/21/2024 Information not available 01/08/2025 What is your exercise level? Moderate Information not available 01/27/2016 Mental Status None recorded. Family History Relationship Description Onset Age of this Age Resolved Age Notes LastModified by Organization Details LastModified Time Father Diabetes mellitus [email or web address] Not available 04/23 09:09:47 Father Malignant neoplastic disease lympho ma [email or web address] Not available 01/23/2022 08:17:41 Brother Malignant neoplastic disease thyroi d [email or web address] Not available 01/23/2022 08:17:41 Brother Disorder of thyroid gland [email or web address] Not available 04/23 09:09:47 Maternal Grandmother Dementia [email or web address] Not available 09:09:47 Son Well adult [email or web address] Not avail able 01/23/2022 08:17:41 Mother Dementia 80 [email or web address] Not availab le 08/25/2022 10:07:42 Medical History Condition Response Gout N Other N Blood Diseases N Kidney Stones N Hyperthyroidism N Breast Cancer N Depression N COPD N Lung Disease N Hypothyroidism N Defects or Inherited Disease N Anesthesia Complications N Headaches/Migraines N Anxiety Disorder N Varicose Veins N Obesity N Vision or Eye Problems [...] virus, quadrivalent, preservative 6 completed Not Available [facility] 04/01/2023 10:02:27 Influenza, split virus, quadrivalent, preservative 7 completed Not Available [facility] 04/01/2023 10:02:27 zoster recombinant 9 completed [place] Cardenas [place] [facility] 01/05/2022 09:09:29 COVID-19, mRNA, LNP-S, PF, 100 mcg/0.5mL dose or 50 mcg/0.25mL dose 1 completed Nae Betancur [place] [facility] 01/05/2022 09:09:29 zoster recombinant 9 completed Nae Gypsy [place] [facility] 01/05/2022 09:09:29 MMR 8 [facility] 01/05/2022 09:09:29 Influenza, split virus, trivalent, preservative 3 completed Nae Betancur [place] [facility] [facility] 01/05/2022 09:09:29 COVID-19, mRNA, LNP-S, PF, 100 mcg/0.5mL dose or 50 mcg/0.25mL dose 1 completed Nae Betancur [place] [facility] 01/05/2022 09:09:29 Influenza, split virus, quadrivalent, preservative 5 completed Nae Betancur [place] [facility] 01/05/2022 09:09:29 COVID-19, mRNA, LNP-S, PF, 100 mcg/0.5mL dose or 50 mcg/0.25mL dose 1 completed aNe Betancur [place] [facility] 01/05/2022 09:09:29 MMR 8 completed Nae Gypsy [place] there[place] [facility] 01/05/2022 09:09:29 Influenza, split virus, trivalent, PF 6 completed NaePHOENIX Velez [facility] 01/05/2022 09:09:29 COVID-19, mRNA, LNP-S, PF, 100 mcg/0.5mL dose or 50 mcg/0.25mL dose 2 completed [place] [facility] 01/05/2022 09:09:29 Influenza, [...] virus, trivalent, PF 4 completed [place] Marie [facility] 11/04/2024 09:54:46 Pneumococcal conjugate PCV20, polysaccharide [id number] conjugate, adjuvant, PF 5 completed Not Available [facility] 07/23/2025 10:27:06 Tdap 5 completed Not Available [facility] 07/23/2025 10:27:06 Past Encounters Encounter ID Performer Location Encounter Start Date Encounter Closed Date Diagnosis/Indication Diagnosis SNOMED-CT Code Diagnosis ICD10 Code Diagnosis IMO Codes Diagnosis Note [id number] Kavon Levine MD Main Office [address] [place] [address] 04/18/2015 12:54:55 04/18/2015 14:23:27 Adult health examination [id number] Will update immunizati on status and screen based on risk factors. Will track down previous colonoscop y report. Regular dental and ophtho care advised as well as seatbelt and sunscreen use. Distracted driving discussed. Advance directives in place. Body mass index 30+ - obesity 473203109 Panic attack 027837216 Use is reportedly infrequent . Will refill and monitor. Administra tion of diphtheria, pertussis, and tetanus vaccine 361422656 Contact dermatitis 29216899 Suspect this might be the cause, fungal less likely given lack of response to topical antifungal . Call inb/worse. Disorder o f urinary bladder 01036283 Will request urology records for further clarificat ion of diagnosis. Disorder of skin 21587711 Possible BCC, will ask derm for opinion. [id number] Kavon Levine MD Main Office [address] [place] [address] 01/27/2016 14:45:16 01/27/2016 15:46:43 Panic attack 256120232 F41.0 Use is reportedly infrequent . Will refill and monitor. Upper abdominal pain 831 40210 R10.10 ? if related to HH vs PUD vs pancreatit is. Normal recent imaging works against pancreatit is. Will recheck labs and UGI to look for pathology. Will also try to track down last EGD result. Depending on results may need to f/u with GI or be referred to thoracic surgery. [id number] Kavon Levine MD Main Office [address] [address] [place] [address] 04/23/2016 08:34:46 04/23/2016 09:32:13 Adult health examination 440077363 Z00.01 Immunizati on status utd will screen based on risk factors. Flu advised in the Fall. Will track down previous colonoscop y report. Regular dental and ophtho care advised as well as seat belt and sunscreen use. Distracted driving discussed. Advance directives in place and updated. Body mass index 30+ - obesity 379413003 Z68.35 Hiatal hernia 99754157 K 44.9 ? if this is the cause of his upper abd/lower chest pain. Gastroesop hageal reflux disease 366534170 K21.9 Will titrate PPI while waiting for GI eval. Pt advised to limit NSAID and caffeine use. Chest wall pain 93444729 6 R07.89 Advance di rective discussed with patient 495377226 Z71.89 [id number] Kavon Levine MD Main Office [address] [facility] [address] [place] [address] 09/11/2016 11:25:02 09/11/2016 12:39:42 Gastroesophageal reflux disease 165731511 K21.9 Will continue current PPI dose but needs further eval for dysphagia. Intermitte nt dysphagia 54144209 R13.19 ? if this is a neurologic issue. Will ask neuro to help evaluate this as well as possibly help with sleep issues. Pain of hip region 26709 002 M25.552 Image to look for OA. If nl will refer to bursal injection. Tremor 47018406 R25.1 Persistent insomnia 1919 32779 G47.09 See if low dose TCA helps with this. May have impact on other neuro issues. Acute sinusitis 44038846 J01.90 Advised to f/u with ENT if nasal steroid doesn't help. [id number] Kwaku Shah MD Main Office [address] [facility] [address] [place] [address] 09/23/2016 10:27:26 09/23/2016 11:43:51 Greater trochanteric pain syndrome 1524360 M70.62 [id number] Kavon Levine MD Main Office [address] [facility] [address] [place] [address] 11/02/2016 10:48:49 11/02/2016 11:49:40 Obstructive sleep apnea syndrome 59970192 G47.33 Being fitted for a mask, has sleep medicine f/u. Gastroesop hageal reflux disease 462779643 K21.9 Will continue current PPI dose but needs further eval for dysphagia. Dysphagia 00672945 R13.1 0 Insomnia 540755000 G47.0 0 Responding well to TCA, will continue treatment. [id number] Kavon Levine MD Main Office [address] [facility] [address] [place] [address] 04/05/2017 15:32:16 04/05/2017 16:17:20 Spasm of back muscles 857033660 M62.830 Refer to PT if not slowly improving. Will need further eval if persistent /worse. Increased liver function 19457269 R94.5 Persistent despite wt loss. Imaging from Aug was unremarkab le. ? if this is medication vs hepatocell ular disease related. Pt would like to see a different GI MD. Obstructiv e sleep apnea syndrome 44915456 G47.33 Will track down sleep study results and neuro notes to help verify issue and plan. [id number] Kavon Levine MD Main Office [address] [facility] 207 [facility] [place] [address] 10/04/2017 10:16:09 10/04/2017 11:08:59 Adult health examination 976899925 Z00.00 Immunizati on status utd will screen based on risk factors. Colon cancer screening utd, prostate cancer screening coordinate d via urology. Regular dental and ophtho care advised as well as seat belt and sunscreen use. Distracted driving discussed. Advance directives in place. Insomnia 651398050 G47.0 0 Responding well to TCA, will continue treatment. Obstructiv e sleep apnea syndrome 07996577 G47.33 Tolerating CPAP well. Following with sleep medicine. Thrombocyt openic disorder 835550880 D69.6 Had labs done last week with GI. Presume that CBC was done. Lyme disease 22396183 A6 9.20 Diagnosed and treated by Dr. Aparicio. Body mass index 25-29 - overweight 054208822 E66.3 Z68.25 Increased liver function 18562507 R94.5 Seeing GI for this issue and had labs done last week. Will await reports. Greater tr ochanteric pain syndrome 2557225 M70.62 Mild/impro ving. Will call for injection referral if worse as it has worked well in the past. [id number] Kavon Levine MD Main Office [address] [address] [place] [address] 03/29/2018 10:57:02 03/29/2018 12:49:19 [id number] Kavon Levine MD Main Office [address] [address] [place] [address] 04/08/2018 08:58:11 04/08/2018 09:49:34 Dizziness 485843206 R42 Sounds secondary to dehydratio n, possibly hypoglycem ia, less likely arrythmia. Cardiac etiology unlikely at this time based on negative extensive work up. Advised to call if recurrent tejinder with exertion. Palpitations 21896256 R0 0.2 Would consider holter monitor if recurrent. Adequate hydration, regular meals and avoiding excessive caffeing intake advised. [id number] Kavon Levine MD Main Office [address] [address] [place] [address] 05/09/2019 11:27:24 05/09/2019 12:23:32 Insomnia 172649710 G47.00 Responding well to TCA, will continue treatment. Localized swelling, mass and lump, neck 977730751 R22.1 WIll characteri ze further with u/s. If negative will monitor clinically . Mass of chest wall 26595 4000 R22.2 Suspect arthritic changes. Will see if XR shows anything. Monitor clinically if negative. [id number] Kavon Levine MD Main Office [address] [facility] [address] [facility] [place] [address] 01/05/2022 09:03:21 01/05/2022 09:46:20 Insomnia 718401768 G47.00 Responding well to TCA, will continue treatment, but needs f/u for CPAP surveillan ce. Gastroesop hageal reflux disease 575320231 K21.9 Will continue current low PPI dose. No red flag symptoms and due for routine GI f/u on this and colonoscop y. Obstructiv e sleep apnea syndrome 08300794 G47.33 Tolerating CPAP well. Needs new sleep medicine care. Non-alcoho lic fatty liver 930380084 K76.0 Increased liver function 03841786 R94.5 Likely from fatty liver and based on recent labs (02/2021) done by Dr Aparicio has been stable. [id number] [facility] MD [facility] [address] [facility] [address] [place] [address] 01/23/2022 08:17:13 01/23/2022 14:18:51 Persistent cough 480805960 R05.3 Possibly related to thrush/pha ryngeal irritation . Will image to rule out pneumonia. Will treat for oral/esoph ageal thrush and modify regimen if indicated based on CXR and lab results. Advised to alejandro inb/worse. Candidiasis of mouth 797 01913 B37.0 Advised to hold hydroxychl oroquine, amitryptil ine, alfusozin, nystatin and cefdinir while on fluconazol e. [id number] Kavon Levine MD Main Office [address] [facility] [address] [place] [address] 06/17/2022 13:19:40 06/17/2022 14:08:47 Herpes zoster 3311797 B02.9 itchy rash R lateral thigh highly [...] calamine --- call us if develop PHN [id number] Kavon Levine MD Main Office [address] [facility] [address] [facility] [place] [address] 08/25/2022 09:26:46 08/25/2022 10:23:52 Adult health examination 886439181 Z00.00 Immunizati on status utd will screen based on risk factors. Colon cancer screening utd, prostate cancer screening coordinate d via urology. Regular dental and ophtho care advised as well as seat belt and sunscreen use. Distracted driving discussed. Advance directives in place. Benign pro static hyperplasia with outflow obstruction 432708541 N40.1 Followed and managed by Dr. Lyn. Body mass index 30+ - obesity 697264733 Z68.30 E66.9 Gastroesop hageal reflux disease 907234885 K21.9 Will continue current low PPI dose. No red flag symptoms and due for routine GI f/u on this and colonoscop y. Elevated blood-pressure reading without diagnosis of hypertension 201573905 R03.0 High-grade urothelial carcinoma found on urine cytology 559134424 R82.89 Following with urology q 6 months. Hypogonadism 48796270 E2 9.1 Managed and monitored by urology. Obstructiv e sleep apnea syndrome 03834879 G47.33 Sleep study scheduled next week with sleep medicine down the [place]. Thrombocyt openic disorder 145077923 D69.6 Will monitor with urology. Screening for cardiovascular system disease 155221194 Z13.6 Hepatitis C screening 41 1571833 Z11.59 [id number] Kavon Levine MD Main Office [address] [facility] [address] [facility] [place] [address] 12/29/2022 09:02:46 12/29/2022 09:43:37 Hypertensive renal disease 32999969 I12.9 Given albuminuri a and intermitte nt elevations will try low dose ACEI and titrate as tolerated to goal BP control. Common/ser ious side effects discussed. Advised to call with any problems and go for labs in 2-3 weeks. Also advised to d/c meloxicam if possible and work on restrictin g Na intake. Albuminuria 930122529 R8 0.9 Spinal narciso nosis in cervical region 94098058 M48.02 This is why he is using NSAID and symptoms are worse. Will update imaging and consult neurosurg of progressio n is noted. Chronic ki dney disease stage 1 108223443 N18.1 [id number] Brent Monterroso MD Main Office [address] [facility] [address] [place] [address] 03/16/2023 10:42:33 03/16/2023 11:08:27 Peeling of skin 005342331 R23.4 will refill clotrimazo le/ betamethas one, use bid X 7 DAYS ON, 7 DAYS OFF, use moisturize r BID as well- recommend cerave. Will refer to derm. Call/ return for any concerns/ worsening, avoid eye area. [id number] Kavon Levine MD Main Office [address] [facility] [facility] [address] [place] [address] 04/01/2023 10:00:20 04/01/2023 11:00:50 Spinal stenosis in cervical region 62009170 M48.02 Seeing PMR, but no correspond ence received. Will request reports. See if muscle relaxant helps. Hypertensi ve renal disease 04560000 I12.9 Well controlled , continue current regimen. Hypercalcemia 69440582 E 83.52 Working on limiting dietary intake. If persistent may need endocrine eval. Butterfly rash 52644920 R21 related to photosensi tivity or contact from CPAP, will screen for autoimmune disease/in flammation . Chronic ki dney disease stage 1 898703771 N18.1 [id number] Kavon Levine MD [facility] [address] [facility] [address] [place] [address] 11/05/2023 10:41:56 11/05/2023 13:53:25 COVID-19 347801437 U07.1 Based on duration of symptoms and risk factors/co morbiditie s pt is a candidate for antiviral therapy. Local pharmacy with availabili ty identified . Common/ser ious potential side effects discussed. Pt advised to call with any problems or if not slowly improving. Current isolation guidelines discussed/ advised. Advised to hold alfuzosin x 7 days. Cough 29096436 R05.9 Symptomati c/supporti ve tx advised. To ED if dyspnea develops. Call inb/worse. Muscle spa sm of cervical muscle of neck 9480597696 04 M62.838 Adequate hydration advised. Acute on chronic issue, will refill previously effective rx. [id number] Brent Monterroso MD Main Office [address] [place] [address] 07/26/2024 10:30:53 07/26/2024 11:09:16 Bicipital tenosynovitis 69843658 M75.22 Advised ibuprofen 800 mg tid. I will send a referral to [facility] and he will call tomorrow for an appointmen t. Hydrocodon e prn and tizanidine prn. [id number] Kavon Levine MD Main Office [address] [facility] [address] [place] [address] 11/04/2024 09:46:49 11/04/2024 10:39:28 Fever 939079408 R50.9 Significan tly symptomati c from flu A for sure. Will assess for PNA/second sanket infection with CXR. Will cover with abx if infiltrate present. Upper resp iratory tract infection caused by Influenza A virus 9875289234 14415 J09.X2 Cough 09807168 R05.9 Symptomati c/supporti ve tx advised. To ED if dyspnea develops. Call inb/worse. Muscle pain 66317016 M79 .10 Will see if short steroid taper helps mitigate inflammato ry symptoms as NSAIDS have been in effective. [id number] Kavon Levine MD Main Office [address] [facility] [address] [place] [place] [address] 01/08/2025 12:54:34 01/08/2025 14:21:27 Adult health examination 470706035 Z00.00 Immunizati on status utd will screen based on risk factors. Colon cancer screening utd, prostate cancer screening coordinate d via urology. Regular dental and ophtho care advised as well as seat belt and sunscreen use. Distracted driving discussed. Advance directives in place. Benign pro static hyperplasia with outflow obstruction 271550477 N40.1 Followed and managed by Dr. Lyn. Body mass index 30+ - obesity 024240604 E66.9 Z68.32 Gastroesop hageal reflux disease 569979955 K21.9 Will continue current low PPI dose. Now with dysphagia that needs further eval. If abnl or symptoms persist we mayneed to revisit GI. High-grade urothelial carcinoma found on urine cytology 659132538 R82.89 Following with urology q 6 months. Hypogonadism 22969778 E2 9.1 Managed and monitored by urology. Obstructiv e sleep apnea syndrome 79934145 G47.33 Unable to tolerate CPAP. Thrombocyt openic disorder 794217235 D69.6 Will monitor. Screening for cardiovascular system disease 418832346 Z13.6 Administra tion of pneumococcal vaccine 63739330 Z23 Requires d iphtheria, tetanus and pertussis vaccination 634907291 Z23 851459 Intermitte nt palpitations 783654599 R00.2 31364600 With untreated EVELYN and obesity had risk for afib. With nl ECG will monitor symptoms. Essential hypertension 15865158 I10 32416 Fair control, continue lisinopril . Esophageal dysphagia 408 78671 R13.19 8211 Screen for stricture. Allergic conjunctivitis of bilateral eyes 4007247084 70173 H10.13 [id number] Call inb/worse. 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 Essential hypertension 32103207 I10 61460 Took lisinopril just before today's visit. Titrate dose if >130/90 at f/u. Body mass index 30+ - obesity 174821241 E66.9 Z68.32 Carries weight related comorbidit ies. Will try nutritiona l counseling . If unsuccessf ul and ins covers he will be a candidate for GLP1 agonist therapy. Enzyme lev el - finding 473638234 R74.01 1161646 Secondary to fatty liver disease seen on liver u/s in January. Obstructiv e sleep apnea syndrome 95802776 G47.33 Unable to tolerate CPAP. Non-alcoho lic fatty liver 249843781 K76.0 Assess risk factor control. [id number] Kavon Levine MD Main Office [address] [facility] [address] [place] [address] 06/21/2025 12:46:49 06/21/2025 13:34:11 Body mass index 30+ - obesity 727613321 E66.9 Z68.32 Carries weight related comorbidit ies. Will try nutritiona l counseling . If unsuccessf ul and ins covers he will be a candidate for GLP1 agonist therapy. Esophageal dysphagia 408 56666 R13.19 8211 Resolved post dilation. On high dose PPI. Bilateral ulnar nerve disorder 7468739265 0547877 G56.23 [id number] Has appt with Dr. Manuel next week Hypertensi ve renal disease 82219442 I12.9 Well controlled , continue current regimen. Obstructiv e sleep apnea syndrome 62142726 G47.33 Unable to tolerate CPAP. [id number] Kavon Levine MD Main Office [address] [facility] [address] [place] [address] 07/23/2025 10:25:59 07/23/2025 11:08:12 Acute bacterial sinusitis 21646877 J01.90 B96.89 93549 - Patient describes worsening sinus pressure, congestion [...] Member ID Vargas Member ID Guarantor Name 08/22/2025 1 [facility]: NETWORK BLUE - O [facility] ([facility] [place]) [id number] Fermin Wilhelm [id number] Fermin Wilhelm Notes Date Note Type [...] with coughbut reportsmoderate. Kavon Levine MD [address] [address], [place], [address], [facility] 11/23/2024 07:20:06 5 text/html Generic HPI TemplateReported by PatientHere for a physical. Feeling great lately. Seeing dentist and ophtho regularly. Kavon Levine MD [address] [address], [place], [address], [facility] 01/08/2025 14:06:18 5 text/html Hypertension F/UReported by [...] reportsadditional diagnosis: __. Kavon Levine MD [address] [address], [place], [address], [facility] 05/16/2025 22:12:17 5 text/html Musculoskeletal PainReported by [...] diet as primary therapy.Has been working with outsewer at [facility]. Kavon Levine MD [address] [facility] [address], [place], [address], [facility] 06/21/2025 13:32:35 5 text/html Upper Respiratory SymptomsReported [...] pressure x 7 days. Kavon Levine MD [address] [address], [place], [address], [facility] 07/23/2025 16:34:17
--- OUTSIDE RECORDS SUMMARY | 2025-08-22 18:36 | XMS_ITS | Continuity of Care Document ---
Author Organization [facility], Main Office Address [address] [facility] [address] [place] [address] Care Team Providers Care Cell Biologist Name Role Phone KAVON LEVINE Primary Care Provider [phone] MELBA MOORE Maintainer Operator KRYS NAGY Pepper Cutter TORRIE FINN Urologist [phone] CAMILLE ROBERT Infectious Disease [phone] GLADYS GALVAN Neurologist HUONG GARCIA Public Health Physician [phone] JACY VILLELA Phys. Med. & Rehab [phone] ELOY [place] Neurosurgeon [facility] Pepper Cutter [phone] BRITTANI RAMIRES Orthopedic Surgeon [phone] Assessment No assessment recorded. Plan of Treatment [...] clavulana te 125 mg tablet 2024 025 [id number], [address], [place], [id number], 08/06/2025 05:02:20 Patient TargetsNo targets recorded. Patient Instructions Encounter Date Encounter Id Patient Instructions Last Modified By Organization Details Last Modified Time 07/23/2025 [id number] Chart reviewed, agree with above assessment and plan. moni Not available 07/23/2025 16:34:07 Reason for Referral None Reported. 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 39597069 Active Kavon Levine MD [address] [address], [place], [address], [facility] 6 09:07:01 Lyme disease 43284352 Active Kavon Levine MD [address] [address], [place], [address], [facility] 6 09:07:01 Panic attack 803425417 Completed 08/25/2022 Kavon Levine MD [address] [address], [place], [address], [facility] 2 10:12:56 Environm ental allergy 365311936 Active Kavon Levine MD [address] [address], [place], [address], [facility] 6 09:07:01 Body mass index 30+ - obesity 574719588 Completed 10/04/2017 Kavon Levine MD [address] [address], [address], [facility] 5 13:36:35 Contact dermatit is 83380393 Completed 10/04/2017 Kavon Levine MD [address] [address], [address], [facility] 8 10:48:55 Disorder of skin 84591337 Completed 04/23/2016 Kavon Levine MD [address] [facility] [address], [place], [address], [facility] 6 09:07:01 Hyperpla stic polyp of intestin e 93617222 Active Kavon Levine MD [address] [facility] [address], [place], [address], [facility] 6 09:07:01 Thromboc ytopenic disorder 078709418 Active Kavon Levine MD [address] [facility] [address], [place], [address], [facility] 6 09:07:01 Urine microsco py: presence of cells - finding 539885116 Completed 09/23/2016 [place] [facility], 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 7 10:44:09 Hypogona dism 47149080 Active Kavon Levine MD [address] [facility] [address], [place], [address], [facility] 6 09:07:01 Upper abdomina l pain 95469211 Completed 09/23/2016 [place], [facility] 7 10:44:34 Gastroes ophageal reflux disease 793007102 Active Kavon Levine MD [address], [place], [address], [facility] 6 09:32:59 Hiatal hernia 27656899 Active Kavon Levine MD [address], [place], [address], [facility] 5 06:55:16 Chest wall pain 029147347 Completed 09/23/2016 [place], [facility] 7 10:44:03 Advance directiv e giuseppe d with patient 938985626 Completed 10/04/2017 Kavon Levine MD [address], [place], [address], [facility] 8 10:47:20 Testicul ar hypofunc tion 910961859 Completed 201501/08/2025 Kavon Levine MD [address], [place], [address], [facility] 5 13:36:06 Obstruct milla sleep apnea syndrome 18198192 Active 2016 Kavon Levine MD [address], [place], [address], [facility] 7 22:31:33 Dysphagi a 34188913 Completed 201610/04/2017 Kavon Levine MD [address], [place], [address], [facility] 8 10:47:12 Insomnia 340673908 Active 2016 Kavon Levine MD [address], [place], [address], [facility] 7 11:41:51 Increase d liver function 28013986 Completed 201601/08/2025 Kavon Levine MD [address], [place], [address], [facility] 5 14:02:40 Divertic ular disease 299496794 Active 2017 Kavon Levine MD [address], [place], [address], [facility] 8 10:43:46 Greater trochant lashaun pain syndrome 6789732 Completed 201701/08/2025 Kavon Levine MD [address], [place], [address], [facility] 5 14:01:41 Hepatome maria elena 81423293 Active 2017 Kavon Levine MD [address], [place], [address], [facility] 8 12:58:09 Non-alco holic fatty liver 654078684 Active 2017 Kavon Levine MD [address], [place], [address], [facility] 8 12:58:18 Supraspi natus tendinit is 457000105 Completed 201701/08/2025 Kavon Levine MD [address], [place], [address], [facility] 5 14:03:02 Impingem ent syndrome of shoulder region 067393788 Active 2018 Kavon Levine MD [address], [place], [address], [facility] 9 12:26:13 Arthriti s of acromioc lavicula r joint 026054714 Active 2018 Kavon Levine MD [address], [place], [address], [facility] 9 12:27:08 Adhesive capsulit is of right shoulder 05938695584 9109 Completed 201808/25/2022 Kavon Levine MD [address], [place], [address], [facility] 2 10:05:25 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 461888437 Active 2019 Kavon Levine MD [address], [place], [address], [facility] 0 12:50:37 Spinal stenosis in cervical region 90715971 Completed 202001/08/2025 mild C3-C4, mild impingem ent C5-C6 Kavon Levine MD [address], [place], [address], [facility] 5 13:36:03 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 02577282287 9100 Active 2020 Kavon Levine MD [address], [place], [address], [facility] 1 12:45:34 Tendinos is of left shoulder 68129784411 749434 Active 2021 Kavon Levine MD [address], [place], [address], [facility] 2 12:24:55 Herpes zoster 1507196 Completed 202108/25/2022 Removal Reason: resolved Kavon Levine MD [address], [place], [address], [facility] 2 10:06:35 History of herpes zoster 51732417474 9108 Active 2021 Kavon Levine MD [address] [facility] [address], [place], [address], [facility] 2 10:06:18 Albuminu brock 545568133 Active 2022 Kavon Levine MD [address] [facility] [address], [place], [address], [facility] 3 10:29:09 Cervical disc disorder 173213396 Active 2022 Kavon Levine MD [address] [facility] [address], [place], [address], [facility] 3 20:14:38 Hypercal cemia 81027311 Completed 202204/09/2023 Kavon Levine MD [address] [facility] [address], [place], [address], [facility] 3 07:47:51 Hypernat remia 866937876 Completed 202202/01/2023 Kavon Levine MD [address] [facility] [address], [place], [address], [facility] 3 19:23:55 Hyperosm olality and or hypernat remia 046984796 Completed 202201/08/2025 Kavon Levine MD [address] [facility] [address], [place], [address], [facility] 5 13:35:32 Peeling of skin 629285892 Completed 202201/08/2025 Kavon Levine MD [address] [facility] [address], [place], [address], [facility] 5 13:35:57 Chronic kidney disease stage 1 076114270 Active 2022 Carmen Ruiz null, [facility] 3 21:14:13 Cervical spondylo sis 145688953 Active 2022 Kavon Levine MD [address], [place], [address], [facility] 3 11:12:29 Electroc ardiogra m abnormal 307391180 Active 2024 Kavon Levine MD [address] [facility] [address], [place], [address], [facility] 5 22:45:36 Body mass index 30+ - obesity 285137264 Active 2024 Kavon Levine MD [address] [facility] [address], [place], [address], [facility] 5 13:36:35 Elevated blood-pr essure reading without diagnosi s of hyperten werner 354788470 Completed 202401/08/2025 Kavon Levine MD [address] [facility] [address], [place], [address], [facility] 5 13:46:54 Impaired fasting glycemia 235933547 Active 2024 Kavon Levine MD [address] [facility] [address], [place], [address], [facility] 5 09:20:09 Enzyme level - finding 140305132 Active 2024 Kavon Levine MD [address] [facility] [address], [place], [address], [facility] 5 09:27:15 Asymptom atic proteinu brock 878508689 Active 2024 Kavon Levine MD [address] [facility] [address], [place], [address], [facility] 5 09:27:19 Esophage al dysphagi a 54135752 Active 2024 Kavon Levine MD [address] [facility] [address], [place], [address], [facility] 5 15:53:44 Strictur e of esophagu s 86494390 Active 2024 Kavon Levine MD [address] [facility] [address], [place], [address], [facility] 5 06:58:13 Esophage al dysmotil ity 182714208 Active 2024 Kavon Levine MD [address] [facility] [address], [place], [address], [facility] 5 06:58:14 Bilatera l ulnar nerve disorder 42578604559 228826 Active 2024 Kavon Levine MD [address] [address], [place], [address], [facility] 5 08:59:25 Acute bacteria l sinusiti s 26628791 Completed 202408/22/2025 Kavon Levine MD [address] [address], [place], [address], [facility] 5 07:23:39 Wheezing symptom 977067359 Active 2024 ADIA SÁNCHEZ, [facility]- [address] [facility] [address], [place], [address], [facility] 5 10:55:46 Problem Notes None recorded. Procedures Surgical History Date Name Laterality Status Provider Name and Address Organization Details Recorded Time 025 total shoulder replacement completed Alicia Ardon MA [facility] 01/08/2025 13:15:49 023 excision of cervical intervertebral disc completed Kavon Levine MD [address] [address], [place], [address], [facility] 11/06/2023 19:57:20 023 epidural injection of cervical spine using fluoroscopic guidance completed Kavon Levine MD [address] [address], [place], [address], [facility] 04/02/2023 08:18:38 022 Colonoscopy completed Kavon Levine MD [address] [address], [place], [address], [facility] 08/26/2022 15:03:15 020 procedure on shoulder completed Raiza Hernandez [facility] 09/12/2019 14:46:53 019 shoulder injection completed Khadijah Leger [facility] 10/11/2018 12:28:47 018 Echo transthoracic completed Kavon Levine MD [address], [address], [facility] 04/08/2018 09:52:55 018 Cardiovascular stress test completed Kavon Levine MD [address], [address], [facility] 04/08/2018 09:53:34 017 Joint Injection completed Kwaku Shah MD [address], [address], [facility] 09/23/2016 11:47:24 016 Advanced Care Planning completed Kavon Levine MD [address], [address], [facility] 04/23/2016 09:32:40 012 EGD completed Kavon Levine MD [address], [address], [facility] 03/08/2016 14:18:51 000 Orthopedic Surgery completed Kavon Levine MD [address] [facility] [address], [place], [address], [facility] 04/23/2016 09:05:07 997 Vasectomy completed Nae [facility]ur[facility] 04/18/2015 13:00:16 996 ENT Surgery completed Kavon Levine MD [address] [facility] [address], [place], [address], [facility] 04/18/2015 13:39:38 996 Hemorrhoidectomy completed Nae Betancur [facility] 04/18/2015 13:00:16 [address] [facility] 04/18/2015 13:00:15 Cystourethroscopy completed Kavon Levine MD [address] [facility] [address], [place], [address], [facility] 09/11/2016 12:15:53 Imaging Results None recorded. Procedure Notes None recorded. Medical Equipment None Reported. Allergies Allergen ID Allergen Name Allergen Category Reaction Reaction Severity Criticality Documentation Date Start Date Code Code System Note Provider Name and Address Organization Details Recorded Time 27076 Demerol medicatio n nausea Not available Not available 04/18/2015 24127 1 RxNorm [facility] 2 10:58:48 08735 Substance with sulfonami de structure and antibacte rial mechanism of action (substanc e) medicatio n fever nausea Not available Not available Not available 04/18/2015 14824 8003 SNOMED Naetj Betancur [facility] 2 10:58:47 48631 Cipro medicatio n other Not available Not available 04/18/201593636 3 RxNorm Naetj Betancur [facility] 2 10:58:42 64312 meperidin e medicatio n Not available Not available Not available 07/23/2025 6754 RxNorm Not Available thomas - [employer] - prod 5 09:57:59 34375 ciproflox acin medicatio n Not available Not available Not available 07/23/20252013 2551 RxNorm Not Available [place] - External Data [employer] - prod 5 09:58:00 [...] Updated DateTime 5 167.64 cm 32 kg/m2 54422.6 9 g 98 % 86 /min 98.4 [degF] 131/83 mm[Hg] Lyndsay Mccauley MA [facility] [place] 5 10:38:58 Social History Question Answer Notes LastModified by Organizat ion Details LastModified Time Tobacco Smoking Status Never Smoker [facility]2015 13:02:45 Do You Have An Advance Directive? Yes HCP/ Nia Wilhelm Information not available 01/23/2022 Is Blood Transfusion [...] available 04/18/2015 Seat Belts Used Routinely Yes [email or web address] Information not available 01/23/2022 Are You Sexually Active? 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 YESWOREST Information not available 08/25/2022 Are you able to care for yourself independently? 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 Moderate Information not available 01/27/2016 Mental Status None recorded. Family History Relationship Description Onset Age of this Age Resolved Age Notes LastModified by Organization Details LastModified Time Father Diabetes mellitus [email or web address] Not available 04/23 09:09:47 Father Malignant neoplastic disease lympho ma [email or web address] Not available 01/23/2022 08:17:41 Brother Malignant neoplastic disease thyroi d [email or web address] Not available 01/23/2022 08:17:41 Brother Disorder of thyroid gland [email or web address] Not available 04/23 09:09:47 Maternal Grandmother Dementia [email or web address] Not available 09:09:47 Son Well adult [email or web address] Not avail able 01/23/2022 08:17:41 Mother Dementia [...] virus, quadrivalent, preservative 6 completed Not Available [facility] 04/01/2023 10:02:27 Influenza, split virus, quadrivalent, preservative 7 completed Not Available [facility] 04/01/2023 10:02:27 zoster recombinant [address] [facility] 01/05/2022 09:09:29 COVID-19, mRNA, LNP-S, PF, 100 mcg/0.5mL dose or 50 mcg/0.25mL dose [address] [facility] 01/05/2022 09:09:29 zoster recombinant [address] [facility] 01/05/2022 09:09:29 MMR [address] [facility] 01/05/2022 09:09:29 Influenza, split virus, trivalent, preservative [address] [facility] 01/05/2022 09:09:29 COVID-19, mRNA, LNP-S, PF, 100 mcg/0.5mL dose or 50 mcg/0.25mL dose [address] [facility] 01/05/2022 09:09:29 Influenza, split virus, quadrivalent, preservative [address] [facility] 01/05/2022 09:09:29 COVID-19, mRNA, LNP-S, PF, 100 mcg/0.5mL dose or 50 mcg/0.25mL dose [address] [facility] 01/05/2022 09:09:29 MMR [address] [facility] 01/05/2022 09:09:29 Influenza, split virus, trivalent, PF [address] [facility] 01/05/2022 09:09:29 COVID-19, mRNA, LNP-S, PF, 100 mcg/0.5mL dose or 50 mcg/0.25mL dose [address] [facility] 01/05/2022 09:09:29 Influenza, MDCK, quadrivalent, PF [address] [facility] 01/05/2022 09:09:29 Influenza, split virus, quadrivalent, PF [address] [facility] 01/05/2022 09:09:29 Influenza, split virus, quadrivalent, PF [address] [facility] 01/05/2022 09:09:29 Tdap [address] [facility] 06/17/2022 13:32:56 Influenza, split virus, trivalent, PF [address] [facility] 11/04/2024 09:54:46 Pneumococcal conjugate PCV20, polysaccharide BCV114 conjugate, adjuvant, PF 5 completed Not Available [facility] 07/23/2025 10:27:06 Tdap 5 completed Not Available [facility] 07/23/2025 10:27:06 Past Encounters Encounter ID Performer Location Encounter Start Date Encounter Closed Date Diagnosis/Indication Diagnosis SNOMED-CT Code Diagnosis ICD10 Code Diagnosis IMO Codes Diagnosis Note [id number] Kavon Levine MD Main Office [address] [facility] [address] [facility] [place] [address] 07/23/2025 10:25:59 07/23/2025 11:08:12 Acute bacterial sinusitis 19153214 J01.90 B96.89 19737 - Patient describes worsening sinus pressure, congestion [...] Vargas Member ID Guarantor Name 07/23/2025 1 [facility]: NETWORK BLUE - [facility] ([facility] [id number] Fermin Wilhelm [id number] Fermin Wilhelm Notes Date Note Type [...] pressure x 7 days. Kavon Levine MD [address] [address], [place], [address], [facility] 07/23/2025 16:34:17
--- OUTSIDE RECORDS SUMMARY | 2025-08-22 18:36 | XMS_ITS | Clinical Summary ---
Author Organization [facility] Address [address] [place] [address] Care Team Providers Care Recreation Therapist Name Role Phone Kavon Maldonado MD Primary [...] With food or milk. Active nystatin (MYCOSTATIN) 287785 units tablet Take 1 tablet by mouth [...] C Virus Screening 1962 COVID-19 Vaccine (#1) 01/14/1963 HIV Screening 1975 DTaP/Tdap/Td Vaccines (1 - [...] age to complete this topic Insurance [employer] [place] OUT OF STATE - PPO Advance Directives * Full Code (Latest Code Status on File) Date Activated Date Inactivated Comments 03/27/2018 3:50 PM Care Teams Recreation Therapist Relationship Specialty Start Date End Date Kavon Maldonado MD [address] [address] PCP - General 03/27/18
== END 2025-08-22 14:02 | disposition home or self-care (01) ==
LOC: HO.HMGAL 14:00
PROVIDERS: PCP Pediatrics; Visit Provider Registered Nurse Emergency
DX: J30.89 Other allergic rhinitis (principal)
CPT/HCPCS: 95117; 95165